=== PATIENT | female | born 1970 | race African-American/Black ===

== ENCOUNTER 2016-05-07 11:08 | Emergency (ER) | payer OTHER ==
[~2016-05-07 11:08] MED LIST: DICL75 PO; FERR325T PO; LEVO.1 PO; LURA40 PO; MOBI15TA PO; ONE A DAY WOMENS PO; ZOVI200C24 PO
[2016-05-07 11:25] VITALS: BP 147/91; PULSE 72; RESP 16; TEMP 96.5; O2SAT 98
[2016-05-07] MEDS ORDERED: TRAM50TA PO (11:31)
[2016-05-07] MEDS ORDERED: LISI10TA3 PO (11:31)
[2016-05-07] MEDS ORDERED: SERO300T PO (11:31)
[2016-05-07] MEDS ORDERED: WELLTAB39 PO (11:31)
[2016-05-07] MEDS ORDERED: FERR1TAB36 PO (11:31)
[2016-05-07] MEDS ORDERED: VIST50CA PO (11:31)
[2016-05-07] MEDS ORDERED: ZANT150T2 PO (11:31)
[2016-05-07] MEDS ORDERED: ACYC400T PO (11:31)
[2016-05-07] MEDS ORDERED: LEVO100T5 PO (11:31)
--- NOTE | 2016-05-07 11:43 | PD ---
HPI Chief Complaint: Psychiatric Symptoms Time Seen by Provider: 11:42 Travel History International Travel<30 days: No Contact w/Intl Traveler<30days: No Traveled to known affect area: No History of Present Illness HPI 46 year old female with PMH of HTN, depression, anxiety and PTSD presents to the ED under [place] Act for evaluation of 1 week history of suicidal and homicidal ideation. Patient states that she has been having thoughts of jumping in front of a car or drowning herself. She also states that she becomes very angry, especially with men, and has thoughts of hurting them or killing them. She denies hearing voices or hallucinations. No somatic complaints. The patient states that she recently moved from [place] and has been off Wellbutrin, Seroquel and Vistaril for 2 weeks. She endorses using cocaine yesterday. She states that she had a few beers this morning. PFSH Past Medical History Arthritis: Yes (HIPS, LEGS) Bipolar Disorder: Yes Anxiety: Yes Depression: Yes Cancer: No Cardiovascular Problems: Yes Chest Pain: Yes Congestive Heart Failure: No Diabetes: No Diminished Hearing: No Endocrine: Yes Gastrointestinal Disorders: Yes GERD: Yes Genitourinary: No Headaches: No Hypertension: Yes Immune Disorder: No Musculoskeletal: Yes Neurologic: Yes Psychiatric: Yes Reproductive: Yes (UTERINE FIBROIDS, GENITAL HERPES) Respiratory: No Integumentary: Yes (HERPES) Schizophrenia: Yes Seizures: No Thyroid Disease: Yes (HYPOTHYROID) ?: Not : 6 Para: 4 Miscarriage: 1 : 1 Tubal Ligation: Yes Past Surgical History Section: Yes (X4) Gynecologic Surgery: Yes (TUBAL LIGATION, C-SECT X 4) Other Surgery: Yes Social History Alcohol Use: Yes (OCCASIONALLY) Tobacco Use: Yes (Approx 5 cigs daily.) Substance Use: Yes (COCAINE YESTERDAY) Allergies-Medications (Allergen,Severity, Reaction): Coded Allergies: Trazodone (Unverified Allergy, Severe, Nausea/Vomiting, 05/07/16) Haldol (Verified Adverse Reaction, Intermediate, Twitching, 05/07/16) Reported Meds & Prescriptions Reported Meds & Active Scripts Active Reported Wellbutrin Xl 24 HR (Bupropion HCl) 300 Mg Tab 300 Mg PO DAILY Vistaril (Hydroxyzine Pamoate) 50 Mg Cap 50 Mg PO BID Seroquel (Quetiapine Fumarate) 300 Mg Tab 300 Mg PO HS Lisinopril 10 Mg Tab 10 Mg PO DAILY Tramadol (Tramadol HCl) 50 Mg Tab 50 Mg PO Q8H PRN Acyclovir 400 Mg Tab 400 Mg PO BID Iron (Ferrous Sulfate) 325 Mg Tab 325 Mg PO BIDPC Take after a meal. Zantac (Ranitidine HCl) 150 Mg Tab 150 Mg PO BID Levothyroxine (Levothyroxine Sodium) 100 Mcg Tab 100 Mcg PO DAILY Review of Systems Except as stated in HPI: all other systems reviewed are Neg Physical Exam Narrative GENERAL: Well-nourished, well-developed black female in no acute distress. PSYCHIATRIC: No delusional thought processes. No hallucinations. Anxious. SKIN: Warm and dry. HEAD: Normocephalic. EYES: No scleral icterus. No injection or drainage. NECK: Supple, trachea midline. No JVD or lymphadenopathy. CARDIOVASCULAR: Regular rate and rhythm without murmurs, gallops, or rubs. RESPIRATORY: Breath sounds clear and equal bilaterally. No accessory muscle use. GASTROINTESTINAL: Abdomen soft, non-tender, nondistended. MUSCULOSKELETAL: No cyanosis, or edema. The patient is ambulatory and moves extremities spontaneously. BACK: No obvious deformity. No CVA tenderness. Data Data Last Documented VS Vital Signs Date Time Temp Pulse Resp B/P Pulse Ox O2 Delivery O2 Flow Rate FiO2 05/07/16 11:25 96.5 72 16 147/91 98 Orders Complete Blood Count With Diff (05/07/16 11:44) Comprehensive Metabolic Panel (05/07/16 11:44) Urinalysis - C+S If Indicated (05/07/16 11:44) Drug Screen, Random Urine (05/07/16 11:44) Alcohol (Ethanol) (05/07/16 11:44) Psych Screen (05/07/16 11:44) Diet Regular Basic (05/07/16 Lunch) Labs Laboratory Tests Test 05/07/16 05/07/16 05/07/16 12:00 12:43 13:54 Sodium Level 135 MEQ/L Potassium Level 3.9 MEQ/L Chloride Level 104 MEQ/L Carbon Dioxide Level 22.8 MEQ/L Anion Gap 8 MEQ/L Blood Urea Nitrogen 22 MG/DL Creatinine 1.08 MG/DL Estimat Glomerular Filtration 66 ML/MIN Rate Random Glucose 103 MG/DL Calcium Level 8.6 MG/DL Total Bilirubin 0.2 MG/DL Aspartate Amino Transf 25 U/L (AST/SGOT) Alanine Aminotransferase 32 U/L (ALT/SGPT) Alkaline Phosphatase 73 U/L Total Protein 7.2 GM/DL Albumin 3.4 GM/DL Ethyl Alcohol Level LESS THAN 3 MG/DL White Blood Count 5.3 TH/MM3 Red Blood Count 3.99 MIL/MM3 Hemoglobin 12.1 GM/DL Hematocrit 36.1 % Mean Corpuscular Volume 90.4 FL Mean Corpuscular Hemoglobin 30.3 PG Mean Corpuscular Hemoglobin 33.5 % Concent Red Cell Distribution Width 14.9 % Platelet Count 204 TH/MM3 Mean Platelet Volume 9.8 FL Neutrophils (%) (Auto) 67.4 % Lymphocytes (%) (Auto) 20.8 % Monocytes (%) (Auto) 7.9 % Eosinophils (%) (Auto) 2.9 % Basophils (%) (Auto) 1.0 % Neutrophils # (Auto) 3.6 TH/MM3 Lymphocytes # (Auto) 1.1 TH/MM3 Monocytes # (Auto) 0.4 TH/MM3 Eosinophils # (Auto) 0.2 TH/MM3 Basophils # (Auto) 0.1 TH/MM3 CBC Comment DIFF FINAL Differential Comment Urine Color LIGHT-YELLOW Urine Turbidity CLEAR Urine pH 5.5 Urine Specific [place] 1.006 Urine Protein NEG mg/dL Urine Glucose (UA) NEG mg/dL Urine Ketones NEG mg/dL Urine Occult Blood NEG Urine Nitrite NEG Urine Bilirubin NEG Urine Urobilinogen LESS THAN 2.0 MG/DL Urine Leukocyte Esterase NEG Urine WBC LESS THAN 1 /hpf Urine Squamous Epithelial <1 /hpf Cells Microscopic Urinalysis Comment CULT NOT INDICATED Urine Opiates Screen NEG Urine Barbiturates Screen NEG Urine Amphetamines Screen NEG Urine Benzodiazepines Screen NEG Urine Cocaine Screen POS Urine Cannabinoids Screen NEG MDM Medical Decision Making Medical Screen Exam Complete: Yes Emergency Medical Condition: Yes Differential Diagnosis Adjustment disorder versus anxiety versus bipolar versus depression versus dementia versus electrolyte disorder versus malingering versus mood disorder versus ODD versus psychosis versus PTSD versus schizophrenia versus schizoaffective disorder versus substance-induced mood disorder versus other Narrative Course 46-year-old female with PMH of HTN, anxiety, depression, PTSD presents to the ED under Coley act for evaluation of suicidal and homicidal ideation. Patient states that she's been feeling suicidal for approximately one week. She states that she will settle into traffic or drown herself. Also endorses anger with homicidal ideation, especially when interacting with men. Patient is prescribed Seroquel, Wellbutrin and Vistaril. States she has not had these medications for 2 weeks, since she moved from [place]. No somatic complaints. Vitals and physical exam are reassuring. CBC unremarkable. BMP with mild elevations of BUN and creatinine, this patient's baseline according to chart review. No culture indicated of the UA. Alcohol less than 3. Tox screen positive for cocaine. The patient is medically cleared for psychiatric evaluation. Please see psychiatric notes for disposition. Diagnosis Primary Impression: Medical clearance for psychiatric admission Additional Impressions: Homicidal ideation Suicidal ideation Ratna Jasso May 07, 2016 11:43
[2016-05-07 12:44] LABS: ANION GAP 8 MEQ/L (5-15); AST (GOT) 25 U/L (15-37); BICARBONATE 22.8 MEQ/L (21.0-32.0); BLOOD UREA NITROGEN 22 MG/DL (7-18); CHLORIDE 104 MEQ/L (98-107); GLOMERULAR FILTRATION RATE 66 ML/MIN (>89); POTASSIUM 3.9 MEQ/L (3.5-5.1); SODIUM (NA) 135 MEQ/L (136-145)
[2016-05-07 12:50] LABS: ALKALINE PHOSPHATASE 73 U/L (45-117); ALT (GPT) 32 U/L (10-53); TOTAL BILIRUBIN ADULT 0.2 MG/DL (0.2-1.0)
[2016-05-07 12:58] LABS: AUTOMATED NEUTROPHIL # 3.6 TH/MM3 (1.8-7.7); BASOPHIL # 0.1 TH/MM3 (0-0.2); EOSINOPHIL # 0.2 TH/MM3 (0-0.4); EOSINOPHIL % 2.9 % (0.0-4.0); HEMATOCRIT 36.1 % (35.0-46.0); HEMO FLAGS DIFF FINAL; LYMPH % 20.8 % (9.0-44.0); LYMPHOCYTE # 1.1 TH/MM3 (1.0-4.8); MEAN CELL VOLUME 90.4 FL (80.0-100.0); MEAN CORPUSCULAR HEMOGLOBIN 30.3 PG (27.0-34.0); MEAN CORPUSCULAR HGB CONC 33.5 % (32.0-36.0); MONO % 7.9 % (0.0-8.0); NEUT % 67.4 % (16.0-70.0); PLATELET COUNT 204 TH/MM3 (150-450); RED BLOOD COUNT 3.99 MIL/MM3 (4.00-5.30); RED CELL DISTRIBUTION WIDTH 14.9 % (11.6-17.2); WHITE BLOOD COUNT 5.3 TH/MM3 (4.0-11.0)
[2016-05-07 14:09] LABS: BLOOD, URINE NEG (NEG); GLUCOSE,URINE NEG (NEG); KETONE, URINE NEG (NEG); NITRITE,URINE NEG (NEG); PH, URINE 5.5 (5.0-8.5); SQUAMOUS EPITHELIAL CELL URINE <1 /hpf (0-5); URINE COLOR LIGHT-YELLOW (YELLW/STRAW)
[2016-05-07 14:15] LABS: COMMENT (UR) CULT NOT INDICATED; CULTURE IF INDICATED CULT NOT INDICATED
[2016-05-07 14:16] LABS: AMPHETAMINE, URINE NEG (NEG); BARBITURATES, URINE NEG (NEG); COCAINE, URINE POS (NEG)
[2016-05-07 15:26] VITALS: BP 175/84; PULSE 81; RESP 18; TEMP 97.1; O2SAT 94
[2016-05-07 18:00] VITALS: BP 157/76; PULSE 79; RESP 18; O2SAT 95
[2016-05-07 22:22] VITALS: BP 143/66; PULSE 67; RESP 19; O2SAT 97
[2016-05-08 02:58] VITALS: BP 183/90; PULSE 78; RESP 18; TEMP 97.5; O2SAT 99
== END 2016-05-08 04:51 ==
LOC: NEDAMB 11:08 → NEPJ 05-08 04:51
DX: F32.9 Major depressive disorder, single episode, unspecified (principal); R45.850 Homicidal ideations; R45.851 Suicidal ideations; F41.9 Anxiety disorder, unspecified; I10 Essential (primary) hypertension; F31.9 Bipolar disorder, unspecified; K21.9 Gastro-esophageal reflux disease without esophagitis; E03.9 Hypothyroidism, unspecified; F14.90 Cocaine use, unspecified, uncomplicated; F17.210 Nicotine dependence, cigarettes, uncomplicated
CPT/HCPCS: 80053; 80307; 80320; 81001; 85025; 99285

== ENCOUNTER 2016-05-21 13:09 | Emergency (ER) | payer OTHER ==
[~2016-05-21] VITALS: Ht 165.1 cm; Wt 110.0 kg
[~2016-05-21 13:09] MED LIST changes: +ACYC400T PO; -DICL75 PO; +FERR1TAB36 PO; -FERR325T PO; -LEVO.1 PO; +LEVO100T5 PO; +LISI10TA3 PO; -LURA40 PO; -MOBI15TA PO; -ONE A DAY WOMENS PO; +SERO300T PO; +TRAM50TA PO; +VIST50CA PO; +WELLTAB39 PO; +ZANT150T2 PO; -ZOVI200C24 PO
[2016-05-21 13:11] VITALS: BP 173/79; PULSE 80; RESP 28; TEMP 98.2; O2SAT 96
--- NOTE | 2016-05-21 13:52 | PD ---
HPI Chief Complaint: Cold / Flu Symptoms Time Seen by Provider: 13:52 Travel History International Travel<30 days: No Contact w/Intl Traveler<30days: No Traveled to known affect area: No History of Present Illness HPI 46-year-old female presents to the emergency Department with complaint of a cough for the last 4-5 days. Reports wheezing. Denies history of asthma or COPD. Reports occasional tobacco use. Reports feeling feverish with chills, but has not taken her temperature and cannot reports a MAXIMUM TEMPERATURE. Reports pain to the right lower rib cage when coughing. Denies shortness of breath or chest pain. Denies hemoptysis. Cough is dry and nonproductive. Has not tried any treatments or medications to alleviate her symptoms. Denies nausea, vomiting. Denies sore throat, ear pain, nasal congestion. Allergies to Haldol and trazodone. History of hypertension. No other modifying factors or associated signs and symptoms. PFSH Past Medical History Arthritis: Yes (HIPS, LEGS) Bipolar Disorder: Yes Anxiety: Yes Depression: Yes Cancer: No Cardiovascular Problems: Yes (HTN) Chest Pain: Yes Congestive Heart Failure: No Diabetes: No Diminished Hearing: No Endocrine: Yes Gastrointestinal Disorders: Yes GERD: Yes Genitourinary: No Headaches: No Hypertension: Yes Immune Disorder: No Musculoskeletal: Yes Neurologic: Yes Psychiatric: Yes Reproductive: Yes (UTERINE FIBROIDS, GENITAL HERPES) Respiratory: No Integumentary: Yes (HERPES) Schizophrenia: Yes Seizures: No Thyroid Disease: Yes (HYPOTHYROID) ?: Not : 6 Para: 4 Miscarriage: 1 : 1 Tubal Ligation: Yes Past Surgical History Section: Yes (X4) Gynecologic Surgery: Yes (TUBAL LIGATION, C-SECT X 4) Other Surgery: Yes Social History Alcohol Use: Yes (OCCASIONALLY) Tobacco Use: Yes Substance Use: Yes (COCAINE ) Allergies-Medications (Allergen,Severity, Reaction): Coded Allergies: Trazodone (Unverified Allergy, Severe, Nausea/Vomiting, 05/21/16) Haldol (Verified Adverse Reaction, Intermediate, Twitching, 05/21/16) Reported Meds & Prescriptions Reported Meds & Active Scripts Active Deltasone (Prednisone) 20 Mg Tab 40 Mg PO DAILY 4 Days start 05/22/2016 Proair Hfa 8.5 GM Inh (Albuterol Sulfate) 90 Mcg/Act Aer 2 Puff INH Q4-6H PRN 108 mcg/actuation Reported Wellbutrin Xl 24 HR (Bupropion HCl) 300 Mg Tab 300 Mg PO DAILY Vistaril (Hydroxyzine Pamoate) 50 Mg Cap 50 Mg PO BID Seroquel (Quetiapine Fumarate) 300 Mg Tab 300 Mg PO HS Lisinopril 10 Mg Tab 20 Mg PO DAILY Tramadol (Tramadol HCl) 50 Mg Tab 50 Mg PO Q8H PRN Acyclovir 400 Mg Tab 400 Mg PO BID Iron (Ferrous Sulfate) 325 Mg Tab 325 Mg PO BIDPC Take after a meal. Zantac (Ranitidine HCl) 150 Mg Tab 150 Mg PO BID Levothyroxine (Levothyroxine Sodium) 100 Mcg Tab 100 Mcg PO DAILY Review of Systems Except as stated in HPI: all other systems reviewed are Neg Physical Exam Narrative GENERAL: Well-nourished, well-developed female patient, in no acute distress; afebrile, nontoxic-appearing SKIN: Warm and dry. HEAD: Atraumatic. Normocephalic. EYES: Pupils equal and round. No scleral icterus. No injection or drainage. ENT: Mucosa pink and moist. EARS: Bilateral pinnae and external canals appear within normal limits. NECK: Trachea midline. No lymphadenopathy. CARDIOVASCULAR: Regular rate and rhythm. No murmur appreciated. RESPIRATORY: No accessory muscle use. Lungs with mild Wheezing throughout to auscultation. Breath sounds equal bilaterally. No retractions or tachypnea. No Audible wheezing noted. GASTROINTESTINAL: Abdomen soft, non-tender, nondistended. Hepatic and splenic margins not palpable. Bowel sounds are active 4 quadrants. MUSCULOSKELETAL: No obvious deformities. No clubbing. No cyanosis. No edema. NEUROLOGICAL: Awake and alert. Oriented 3. No obvious cranial nerve deficits. Motor grossly within normal limits. Normal speech. Moves all extremities. 5/5 strength to all extremities. PSYCHIATRIC: Appropriate mood and affect; insight and judgment normal. Data Data Last Documented VS Vital Signs Date Time Temp Pulse Resp B/P Pulse Ox O2 Delivery O2 Flow Rate FiO2 05/21/16 13:11 98.2 80 28 173/79 96 Room Air Orders Chest, Single Ap (05/21/16 13:52) Prednisone (Deltasone) (05/21/16 14:00) Albuterol Neb (Albuterol Neb) (05/21/16 14:00) [facility] Medical Decision Making Medical Screen Exam Complete: Yes Emergency Medical Condition: Yes Medical Record Reviewed: Yes Differential Diagnosis Bronchitis, pneumonia, cough Narrative Course 46-year-old female with cough 4-5 days. Physical exam and history of present illness consistent with acute bronchitis. Lung sounds are with mild wheezing in the bilateral bases. No audible wheezing. The patient is in no acute distress and her oxygen saturation is 96% on room air. She is without retractions or tachypnea. Patient walking up and down the hallway prior to physical exam and appears to be in no acute distress. Denies chest pain or shortness of breath. Afebrile in the ER. She reports feeling feverish and chills at home. Increased pain to the right lower rib area with coughing. Denies history of asthma or COPD. Reports tobacco use occasionally. Cough is dry. DuoNeb and prednisone administered in ER. Chest x-ray ordered. 1413: Chest x-ray with no acute findings. 1449: Patient reports improvement on reevaluation. Lung sounds are clear and equal bilaterally. Pro-air inhaler and Deltasone prescribed for home. Patient is medically cleared and stable for discharge. Discussed reasons to return to the emergency department. Instructed patient to follow up with primary care provider. Patient agrees with treatment plan. The patients vital signs are stable and the patient is stable for outpatient follow-up and treatment. Patient discharged home, stable and in no acute distress. Diagnosis Primary Impression: Acute bronchitis Qualified Code: J20.9 - Acute bronchitis, unspecified organism Referrals: Primary Care Physician Patient Instructions: Acute Bronchitis (ED), General Instructions Additional Instructions: Use albuterol inhaler as needed and as directed for shortness of breath and wheezing Take oral steroids as prescribed and complete full course avoid triggers such as second hand smoke, dust, known allergens Follow-up with primary care provider within 1 to 2 days Return to emergency department immediately with worsening of symptoms Med/Other Pt SpecificInfo: Prescription(s) given Scripts Prednisone (Deltasone)20 Mg Tab40 Mg PO DAILY 4 Days Ref 0 start 05/22/2016 Prov:Cristy Grant 05/21/16 Albuterol 8.5 GM Inh (Proair Hfa 8.5 GM Inh)90 Mcg/Act Aer2 Puff INH Q4-6H PRN ( SOB/WHEEZING) #1 INHALER Ref 0 108 mcg/actuation Prov:Cristy Grant 05/21/16 Disposition: 01 DISCHARGE HOME Condition: Stable Cristy Grant May 21, 2016 13:52
[2016-05-21] MEDS ORDERED: RESP: ALBUTEROL 2.5 MG/3 ML NEB (SCH) INH ONE (14:00)
[2016-05-21] MEDS ORDERED: predniSONE 20 MG TAB PO ONE (14:00)
--- NOTE | 2016-05-21 14:09 | RADRPT ---
EXAM DATE/TIME: 05/21/2016 13:53 [facility] COMPARISON: No previous studies available for comparison. INDICATIONS : Cough, congestion, chest pain. MEDICAL HISTORY : bronchitis, pneumonia SURGICAL HISTORY : None. ENCOUNTER: Initial ACUITY: 4 - 6 days PAIN SCORE: 7/10 LOCATION: Bilateral chest FINDINGS: A single view of the chest demonstrates the lungs to be symmetrically aerated without evidence of mas s, infiltrate or effusion. The cardiomediastinal contours are unremarkable. Osseous structures are intact. CONCLUSION: No acute disease. Wallace Soto MD FACR on May 21, 2016 at 14:07 Board Certified Radiologist. This report was verified electronically.
[2016-05-21] MEDS ORDERED: PRED-503 PO (14:15)
[2016-05-21] MEDS ORDERED: ALBUAER3 INH (14:15)
== END 2016-05-21 14:57 | disposition home or self-care (01) ==
LOC: NEPB 13:09
DX: J20.9 Acute bronchitis, unspecified (principal); I10 Essential (primary) hypertension; K21.9 Gastro-esophageal reflux disease without esophagitis; Z72.0 Tobacco use
CPT/HCPCS: 71010; 94664; 99283; J7512; J7613

== ENCOUNTER 2016-05-21 15:16 | Emergency (ER) | payer OTHER ==
[~2016-05-21] VITALS: Ht 165.1 cm; Wt 100.0 kg
[~2016-05-21 15:16] MED LIST changes: +ALBUAER3 INH; +PRED-503 PO
[2016-05-21 15:18] VITALS: BP 182/82; PULSE 80; RESP 20; TEMP 97.8; O2SAT 97
--- NOTE | 2016-05-21 15:53 | PD ---
HPI Chief Complaint: Medication Refill Request Time Seen by Provider: 15:43 Travel History International Travel<30 days: No Contact w/Intl Traveler<30days: No Traveled to known affect area: No History of Present Illness HPI 46-year-old female presents to the emergency department requesting medication refill on her Seroquel. She said she has been trying to go through [facility] for refill and they're closed today. Denies homicidal or suicidal ideations. Says she sees things but cannot verify what. Denies auditory hallucinations. The patient was discharged from the emergency department approximately 30 minutes ago and I saw her as a patient and treated her for acute bronchitis. During her last visit, 30 minutes ago, she was requesting to see case management to fill her prescriptions because she cannot afford them. She was also asking for transportation from the hospital from case management and it was unable to be provided. She has no emergent medical complaints at this time. No other modifying Factors or associated signs and symptoms. History Past Medical Histgory Hx Cancer: No Social History Alcohol Use: Yes (OCCASIONALLY) Tobacco Use: Yes Allergies-Medications (Allergen,Severity, Reaction): Coded Allergies: Trazodone (Unverified Allergy, Severe, Nausea/Vomiting, 05/21/16) Haldol (Verified Adverse Reaction, Intermediate, Twitching, 05/21/16) Reported Meds & Prescriptions Reported Meds & Active Scripts Active Deltasone (Prednisone) 20 Mg Tab 40 Mg PO DAILY 4 Days start 05/22/2016 Proair Hfa 8.5 GM Inh (Albuterol Sulfate) 90 Mcg/Act Aer 2 Puff INH Q4-6H PRN 108 mcg/actuation Reported Wellbutrin Xl 24 HR (Bupropion HCl) 300 Mg Tab 300 Mg PO DAILY Vistaril (Hydroxyzine Pamoate) 50 Mg Cap 50 Mg PO BID Seroquel (Quetiapine Fumarate) 300 Mg Tab 300 Mg PO HS Lisinopril 10 Mg Tab 20 Mg PO DAILY Tramadol (Tramadol HCl) 50 Mg Tab 50 Mg PO Q8H PRN Acyclovir 400 Mg Tab 400 Mg PO BID Iron (Ferrous Sulfate) 325 Mg Tab 325 Mg PO BIDPC Take after a meal. Zantac (Ranitidine HCl) 150 Mg Tab 150 Mg PO BID Levothyroxine (Levothyroxine Sodium) 100 Mcg Tab 100 Mcg PO DAILY Review of Systems Except as stated in HPI: all other systems reviewed are Neg Physical Exam Narrative GENERAL: Well-nourished, well-developed female patient, in no acute distress SKIN: Warm and dry. HEAD: Atraumatic. Normocephalic. EYES: Pupils equal and round. ENT: Mucosa pink and moist. NECK: Supple. Trachea midline. CARDIOVASCULAR: Regular rate. RESPIRATORY: No accessory muscle use. GASTROINTESTINAL: Rounded. MUSCULOSKELETAL: No obvious deformities. No clubbing. No cyanosis. No edema. NEUROLOGICAL: Awake and alert. Oriented 3. No obvious cranial nerve deficits. Motor grossly within normal limits. Normal speech. Moves all extremities. 5/5 strength to all extremities. PSYCHIATRIC: No delusional thought processes. No hallucinations. Data Data Last Documented VS Vital Signs Date Time Temp Pulse Resp B/P Pulse Ox O2 Delivery O2 Flow Rate FiO2 05/21/16 15:18 97.8 80 20 182/82 97 Room Air MDM Medical Screen Exam Complete: Yes Emergency Medical Condition: No Differential Diagnosis Malingering, medication refill, medical clearance Narrative Course 46-year-old female, that I just saw approximately 30 minutes ago and treated for acute bronchitis, returns to the emergency department requesting a refill on her Seroquel. While she was here during her last visit today she was requesting to speak with case management so they would fill her prescriptions that I provided for her and she was also asking for transportation from the hospital. She denies suicidal or homicidal ideations. Outpatient community resources were provided for the patient to follow up outpatient. The patient has no medical emergent complaints at this time. Patient is medically cleared and stable for discharge. Discussed reasons to return to the emergency department. Instructed patient to follow up with primary care provider. Patient agrees with treatment plan. The patients vital signs are stable and the patient is stable for outpatient follow-up and treatment. Patient discharged home, stable and in no acute distress. Primary Impression: Encounter for medical screening examination Referrals: Primary Care Physician Patient Instructions: General Instructions, Normal Exam (ED) Additional Instructions: Follow-up for medication refills at outpatient [facility] Follow-up with primary care provider Follow-up with psychiatry Med/Other Pt SpecificInfo: No Change to Meds, No Meds Exist/No RX given Disposition: DISCHARGE HOME Condition: Stable Cristy Grant May 21, 2016 15:53
== END 2016-05-21 15:54 | disposition home or self-care (01) ==
LOC: NEPB 15:16
DX: Z76.0 Encounter for issue of repeat prescription (principal); Z72.0 Tobacco use

== ENCOUNTER 2016-07-30 20:35 | Inpatient (IN) | payer OTHER ==
[~2016-07-30] VITALS: Ht 165.1 cm; Wt 67.1 kg
[2016-07-30 20:50] VITALS: BP 148/72; PULSE 87; RESP 18; TEMP 97.6; O2SAT 97
[2016-07-30] MEDS ORDERED: ALUMINUM/MAGNESIUM/SIMETH 30 ML CUP PO PRN (21:30)
[2016-07-30] MEDS ORDERED: diphenhydrAMINE HCL 50 MG/ML VIAL - HS PRN IM (21:30)
[2016-07-30] MEDS ORDERED: MAGNESIUM HYDROXIDE SUSP 30 ML CUP PO PRN (21:30)
[2016-07-30] MEDS ORDERED: diphenhydrAMINE HCL 50 MG CAP - HS PRN PO (21:30)
[2016-07-30] MEDS ORDERED: ACETAMINOPHEN 325 MG TAB PO PRN (21:30)
[2016-07-31 06:36] VITALS: BP 146/72; PULSE 66; RESP 18; TEMP 98.3; O2SAT 100
[2016-07-31] MEDS ORDERED: MAGNESIUM HYDROXIDE SUSP 30 ML CUP PO PRN (11:45)
[2016-07-31] MEDS ORDERED: ALUMINUM/MAGNESIUM/SIMETH 30 ML CUP PO PRN (11:45)
[2016-07-31] MEDS ORDERED: LORazepam 1 MG TAB PO PRN (12:15)
[2016-07-31] MEDS ORDERED: LORazepam 2 MG TAB PO PRN (12:15)
[2016-07-31] MEDS ORDERED: FLUMAZENIL 0.5 MG/5 ML VIAL IV PUSH PRN (12:15)
[2016-07-31] MEDS ORDERED: LORazepam 2 MG/ML VIAL IV PUSH PRN ×4 (12:15)
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
[2016-07-31] MEDS ORDERED: buPROPion HCL 150 MG EXTENDED RELEASE TAB PO SCH (13:00)
[2016-07-31] MEDS ORDERED: ALBUTEROL SULFATE 90 MCG/ACT HFA 8 GM INHALER INH PRN (13:00)
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
[2016-07-31] MEDS: LISINOPRIL 20 MG TAB PO SCH (16:00)
[2016-07-31] MEDS: FERROUS SULFATE 325 MG (65 MG ELEMENTAL IRON) TAB PO SCH ×2 (16:01→20:56)
[2016-07-31] MEDS: REMOVE OLD PATCH T-DERMAL SCH (16:30)
[2016-07-31] MEDS: NICOTINE 7 MG/24 HR PATCH T-DERMAL SCH (16:30)
[2016-07-31] MEDS: traMADol HCL 50 MG TAB PO PRN (17:22)
[2016-07-31 17:56] VITALS: BP 164/78; PULSE 78; RESP 18; TEMP 98.4; O2SAT 99
[2016-07-31] MEDS: FAMOTIDINE 20 MG TAB PO SCH (20:56)
[2016-07-31] MEDS: buPROPion HCL 150 MG SUSTAINED RELEASE TAB PO SCH (20:57)
[2016-07-31] MEDS: QUEtiapine FUMARATE 300 MG TAB PO SCH (20:57)
[2016-07-31] MEDS: ACYCLOVIR 200 MG CAP PO SCH (21:53)
[2016-08-01 05:57] VITALS: BP 115/58; PULSE 67; RESP 18; TEMP 96.9; O2SAT 97
[2016-08-01] MEDS: LEVOTHYROXINE SODIUM 100 MCG TAB PO SCH (06:43)
[2016-08-01 07:43] LABS: AUTOMATED NEUTROPHIL # 2.3 TH/MM3 (1.8-7.7); BASOPHIL % 1.2 % (0.0-2.0); EOSINOPHIL # 0.2 TH/MM3 (0-0.4); EOSINOPHIL % 4.9 % (0.0-4.0); HEMATOCRIT 27.8 % (35.0-46.0); HEMO FLAGS DIFF FINAL; LYMPH % 23.6 % (9.0-44.0); LYMPHOCYTE # 0.9 TH/MM3 (1.0-4.8); MEAN CELL VOLUME 79.3 FL (80.0-100.0); MEAN CORPUSCULAR HEMOGLOBIN 25.2 PG (27.0-34.0); MEAN CORPUSCULAR HGB CONC 31.8 % (32.0-36.0); NEUT % 59.3 % (16.0-70.0); PLATELET COUNT 260 TH/MM3 (150-450); RED CELL DISTRIBUTION WIDTH 16.4 % (11.6-17.2); WHITE BLOOD COUNT 3.8 TH/MM3 (4.0-11.0)
[2016-08-01 08:17] LABS: ALKALINE PHOSPHATASE 72 U/L (45-117); FREE T4 0.97 NG/DL (0.76-1.46); TOTAL BILIRUBIN ADULT LESS THAN 0.1 MG/DL (0.2-1.0)
[2016-08-01 08:23] LABS: ALT (GPT) 23 U/L (10-53); ANION GAP 8 MEQ/L (5-15); AST (GOT) 24 U/L (15-37); BICARBONATE 25.3 MEQ/L (21.0-32.0); BLOOD UREA NITROGEN 16 MG/DL (7-18); CHLORIDE 106 MEQ/L (98-107); GLOMERULAR FILTRATION RATE 67 ML/MIN (>89); SODIUM (NA) 139 MEQ/L (136-145)
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
[2016-08-01] MEDS: LISINOPRIL 20 MG TAB PO SCH (09:00)
[2016-08-01] MEDS: FOLIC ACID 1 MG TAB PO SCH (09:00)
[2016-08-01] MEDS: REMOVE OLD PATCH T-DERMAL SCH (09:00)
[2016-08-01] MEDS: ACYCLOVIR 200 MG CAP PO SCH ×2 (09:00→20:42)
[2016-08-01] MEDS: FERROUS SULFATE 325 MG (65 MG ELEMENTAL IRON) TAB PO SCH ×2 (09:00→17:54)
[2016-08-01] MEDS: NICOTINE 7 MG/24 HR PATCH T-DERMAL SCH (09:00)
[2016-08-01] MEDS: buPROPion HCL 150 MG SUSTAINED RELEASE TAB PO SCH ×2 (09:00→20:43)
[2016-08-01] MEDS: THIAMINE HCL 100 MG TAB PO SCH (09:00)
[2016-08-01] MEDS: FAMOTIDINE 20 MG TAB PO SCH ×2 (10:01→20:43)
[2016-08-01] MEDS: traMADol HCL 50 MG TAB PO PRN ×2 (10:04→17:57)
--- NOTE | 2016-08-01 14:17 | HHI.PYPN ---
Subjective Remarks Patient seen in her room with nurse Susan, chart reviewed. Patient in bed laying on her belly with covers up to her chin. Responding to me somewhat reluctantly and irritably. She states she is no better than yesterday that she still has a suicidal ideation, they still his auditory hallucinations speaking of . She is reluctant to discuss discharge plans. She states she is homeless. Has been homeless in the past. She is also showing very little initiative into discussing discharge possibilities with us. I wonder if there is a component of manipulation with this lady or perhaps her coming off of her cocaine. Will add Respinol 1 mg twice a day to the regimen Review of Systems Except as stated in HPI: all other systems reviewed are Neg Objective Alert: Yes [place]: Person, Place Mood: Depressed, Other (restricted) Affect: Other (decrease range and intensity) Memory Intact: Comment (poor) Hallucinations: Auditory (of command threatening nature) Delusions: Yes Delusion Type: Paranoid (vaguely) Suicidal: Intent, Ideation Homicidal: Ideation (denies) Insight/Judgement Very poor Labs Test 08/01/16 06:59 White Blood Count 3.8 TH/MM3 Red Blood Count 3.50 MIL/MM3 Hemoglobin 8.8 GM/DL Hematocrit 27.8 % Mean Corpuscular Volume 79.3 FL Mean Corpuscular Hemoglobin 25.2 PG Mean Corpuscular Hemoglobin 31.8 % Concent Red Cell Distribution Width 16.4 % Platelet Count 260 TH/MM3 Mean Platelet Volume 9.4 FL Neutrophils (%) (Auto) 59.3 % Lymphocytes (%) (Auto) 23.6 % Monocytes (%) (Auto) 11.0 % Eosinophils (%) (Auto) 4.9 % Basophils (%) (Auto) 1.2 % Neutrophils # (Auto) 2.3 TH/MM3 Lymphocytes # (Auto) 0.9 TH/MM3 Monocytes # (Auto) 0.4 TH/MM3 Eosinophils # (Auto) 0.2 TH/MM3 Basophils # (Auto) 0.0 TH/MM3 CBC Comment DIFF FINAL Differential Comment Sodium Level 139 MEQ/L Potassium Level 4.0 MEQ/L Chloride Level 106 MEQ/L Carbon Dioxide Level 25.3 MEQ/L Anion Gap 8 MEQ/L Blood Urea Nitrogen 16 MG/DL Creatinine 1.06 MG/DL Estimat Glomerular Filtration 67 ML/MIN Rate Random Glucose 79 MG/DL Calcium Level 8.5 MG/DL Total Bilirubin LESS THAN 0.1 MG/DL Aspartate Amino Transf 24 U/L (AST/SGOT) Alanine Aminotransferase 23 U/L (ALT/SGPT) Alkaline Phosphatase 72 U/L Total Protein 6.8 GM/DL Albumin 3.0 GM/DL Free Thyroxine 0.97 NG/DL Thyroid Stimulating Hormone 1.590 uIU/ML 3rd Gen Vitals/IOs Vital Signs Date Time Temp Pulse Resp B/P Pulse Ox O2 Delivery O2 Flow Rate FiO2 08/01/16 05:57 96.9 67 18 115/58 97 Assessment & Plan Problem List: (1) Schizoaffective disorder, bipolar type ICD Code: F25.0 (2) Cocaine abuse ICD Code: F14.10 (3) Alcohol abuse ICD Code: F10.10 Assessment & Plan Estimated LOS: days patient remains isolative with a very decreased range intense ever affect. Showing no initiative or desire to participate in groups or to participate with the treatment team and discussing placement options. She appears to verify continued auditory hallucinations and suicidal ideation and intent. We'll add Respinol 1 mg twice a day to regimen Justification for Cont. Inpt. At this time patient will decompensate if placed in the lower level of care Discharge Planning To be determined Request HC Surrog/Guard Advoc?: No Krzysztof Tello MD Aug 01, 2016 14:17
[2016-08-01] MEDS: risperiDONE ODT 1 MG TAB PO SCH ×2 (16:00→20:43)
[2016-08-01] MEDS: ACETAMINOPHEN 325 MG TAB PO PRN (16:21)
[2016-08-01 16:57] VITALS: BP 161/81; PULSE 67; RESP 18; TEMP 96.9; O2SAT 99
[2016-08-01] MEDS: QUEtiapine FUMARATE 300 MG TAB PO SCH (20:43)
[2016-08-02 05:30] VITALS: BP 104/66; PULSE 70; RESP 18; TEMP 97.9; O2SAT 98
[2016-08-02] MEDS: LEVOTHYROXINE SODIUM 100 MCG TAB PO SCH (06:24)
[2016-08-02] MEDS: FOLIC ACID 1 MG TAB PO SCH (08:37)
[2016-08-02] MEDS: THIAMINE HCL 100 MG TAB PO SCH (08:37)
[2016-08-02] MEDS: buPROPion HCL 150 MG SUSTAINED RELEASE TAB PO SCH ×2 (08:37→20:53)
[2016-08-02] MEDS: FAMOTIDINE 20 MG TAB PO SCH ×2 (08:37→20:53)
[2016-08-02] MEDS: risperiDONE ODT 1 MG TAB PO SCH ×2 (08:37→20:53)
[2016-08-02] MEDS: ACYCLOVIR 200 MG CAP PO SCH ×2 (08:37→20:53)
[2016-08-02] MEDS: NICOTINE 7 MG/24 HR PATCH T-DERMAL SCH (08:37)
[2016-08-02] MEDS: FERROUS SULFATE 325 MG (65 MG ELEMENTAL IRON) TAB PO SCH ×2 (08:37→17:03)
[2016-08-02] MEDS: LISINOPRIL 20 MG TAB PO SCH (08:37)
[2016-08-02] MEDS: REMOVE OLD PATCH T-DERMAL SCH (09:00)
--- NOTE | 2016-08-02 13:00 | HHI.PYPN ---
Subjective Remarks Patient seen in her room with nurse Jose Juan, patient sitting on the edge of the bed. Patient showing some increased affect increased eye contact, there is some decrease in her paranoia. She does acknowledge continued auditory hallucinations though not quite as threatening, continues suicidality though that also is slightly softened. Patient became somewhat tearful also and said the pain to respond to some positive reinforcements by me. Patient compliant medications. For now continue treatment no change Review of Systems Except as stated in HPI: all other systems reviewed are Neg Objective Alert: Yes [place]: Person, Place Mood: Depressed, Other (restricted) Affect: Other (decrease range and intensity) Memory Intact: Comment (poor) Hallucinations: Auditory (of command threatening nature slightly softer today) Delusions: Yes Delusion Type: Paranoid (vaguely) Suicidal: Intent, Ideation Homicidal: Ideation (denies) Insight/Judgement Poor Vitals/IOs Vital Signs Date Time Temp Pulse Resp B/P Pulse Ox O2 Delivery O2 Flow Rate FiO2 08/02/16 05:30 97.9 70 18 104/66 98 Intake and Output 08/01/16 08/01/16 08/02/16 08:00 16:00 00:00 Intake Total 360 ml Balance 360 ml Assessment & Plan Problem List: (1) Schizoaffective disorder, bipolar type ICD Code: F25.0 (2) Cocaine abuse ICD Code: F14.10 (3) Alcohol abuse ICD Code: F10.10 Assessment & Plan Estimated LOS: days patient continues psychotic and suicidal though somewhat softer today. Compliant medications. For now continue treatment Justification for Cont. Inpt. At this time patient will decompensate if placed in a lower level of care Discharge Planning To be determined Request HC Surrog/Guard Advoc?: Krzysztof Gore MD Aug 02, 2016 13:00
--- NOTE | 2016-08-02 14:43 | HHI.PR ---
Subjective Remarks Follow-up visit iron deficiency anemia, hypothyroidism, genital herpes, hypertension, alcohol abuse, substance abuse. Patient seen today. Reports she' s been doing well. Denies pain and discomfort. Denies SOB/ dyspnea. Denies chest pain, palpitations, headaches, dizziness. Denies fevers, chills, n/v/d. Denies any tremors, shakes. As per nursing, patient has been doing well, no signs of withdrawal symptoms noted. Objective Vitals Vital Signs Date Time Temp Pulse Resp B/P Pulse Ox O2 Delivery O2 Flow Rate FiO2 08/02/16 05:30 97.9 70 18 104/66 98 08/01/16 16:57 96.9 67 18 161/81 99 I/O 08/01/16 08/01/16 08/01/16 08/02/16 08/02/16 08/02/16 07:00 15:00 23:00 07:00 15:00 23:00 Intake Total 360 ml Balance 360 ml Intake Oral 360 ml Result Diagram: 08/01/16 0659 08/01/16 0659 Objective Remarks GENERAL: This is an obese, well-developed patient, in no apparent distress. SKIN: No rashes, ecchymoses or lesions. Cool and dry. HEAD:Normocephalic. EYES: Pupils equal round and reactive. Extraocular motions intact. No scleral icterus. No injection or drainage. ENT: Nose without bleeding. Throat without erythema. Uvula midline. Airway patent. NECK: Trachea midline. No JVD or lymphadenopathy. Supple. CARDIOVASCULAR: Regular rate and rhythm without murmurs, gallops, or rubs. RESPIRATORY: Clear to auscultation. Breath sounds equal bilaterally. No wheezes , rales, or rhonchi. GASTROINTESTINAL: Abdomen soft, non-tender, nondistended. Bowel sounds active 4 MUSCULOSKELETAL: Extremities without clubbing, cyanosis, or edema. Mild tenderness to paraspinal area on palpation. NEUROLOGICAL: Awake and alert. No focal neuro deficit. Motor and sensory grossly within normal limits. Normal speech. A/P Problem List: (1) Cocaine abuse ICD Code: F14.10 Status: Acute (2) Schizoaffective disorder, bipolar type ICD Code: F25.0 Status: Acute (3) Alcohol abuse ICD Code: F10.10 Status: Acute Assessment and Plan Patient is a 46-year-old female with primary medical history of iron deficiency anemia, hypothyroidism, genital herpes, hypertension who came in as a transfer under [facility]y act from [facility] for suicidal ideation. Patient reports she is drinking 2-3 times a week 1 pint of vodka, she also uses cocaine often but not daily. Reports she snorts cocaine. States that she had prior history of seizure from alcohol withdrawal, and she also gets the "shakes." Patient also states that he takes iron pills twice a day because of iron deficiency anemia but she ran out and wasn't able to take it for about a week. Admitted to inpatient psychiatry unit for further evaluation. Consulted for medical management Suicidal ideation, schizoaffective disorder, bipolar type - managed by psychiatry team Cocaine use Alcohol abuse - Review of records showed patient has been reporting cocaine use since 2013 - Counseled to Abstain cocaine and alcohol use - [facility] protocol - Monitor for withdrawals - Seizure precaution - Folic acid, thiamine Tobacco use - nicotine patch Iron deficiency anemia - Ferrous sulfate supplement twice a day - Repeat CBC Saturday or as an outpatient if discharge within the week. - Follow up with PCP. 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 HTN - Lisinopril 20 mg daily - Monitor BP trend Hypothyroidism - Check TSH - Continue levothyroxine 100 g daily UTI - review of records, showed UA negative at [facility]. She denies any dysuria, frequency, hematuria, urgency. DVT prop ambulatory Discussed with patient, nursing Stable from Hospitalist standpoint. We will sign off. Reconsult as needed. Written by Willow Valdivia, acting as scribe for Dr. Cano on 08/02/16 at 14: 39. All or portions of this note were transcribed by scribe [Willow Valdivia]. I, Dr. Mary Cano personally performed the history, physical exam, and medical decision making; and confirmed the accuracy of the information in the transcribed note. Authenticated by Dr. Mary Cano on 08/02/16 at 1500. Willow Avila Aug 02, 2016 14:43 Mary Cano MD Aug 02, 2016 20:57
[2016-08-02] MEDS: QUEtiapine FUMARATE 300 MG TAB PO SCH (20:53)
[2016-08-02 21:46] VITALS: BP 140/67; PULSE 83; RESP 18; TEMP 97.8; O2SAT 100
[2016-08-03] MEDS: LEVOTHYROXINE SODIUM 100 MCG TAB PO SCH (06:08)
[2016-08-03 06:19] VITALS: BP 127/59; PULSE 70; RESP 18; TEMP 97.1; O2SAT 99
[2016-08-03] MEDS: NICOTINE 7 MG/24 HR PATCH T-DERMAL SCH (09:00)
[2016-08-03] MEDS: REMOVE OLD PATCH T-DERMAL SCH (09:00)
[2016-08-03] MEDS: FERROUS SULFATE 325 MG (65 MG ELEMENTAL IRON) TAB PO SCH ×2 (09:11→18:00)
[2016-08-03] MEDS: risperiDONE ODT 1 MG TAB PO SCH ×2 (09:11→20:41)
[2016-08-03] MEDS: FAMOTIDINE 20 MG TAB PO SCH ×2 (09:11→20:41)
[2016-08-03] MEDS: buPROPion HCL 150 MG SUSTAINED RELEASE TAB PO SCH ×2 (09:11→20:41)
[2016-08-03] MEDS: ACYCLOVIR 200 MG CAP PO SCH ×2 (09:11→20:41)
[2016-08-03] MEDS: LISINOPRIL 20 MG TAB PO SCH (09:11)
[2016-08-03] MEDS: THIAMINE HCL 100 MG TAB PO SCH (09:11)
[2016-08-03] MEDS: FOLIC ACID 1 MG TAB PO SCH (09:12)
--- NOTE | 2016-08-03 11:40 | HHI.PYPN ---
Subjective Remarks Patient seen in her room with nurse Susan, patient calm cooperative today some improvement in her affect, she is more verbal and reactive with occasional small smile 6 relate to go to a correction in [place] called [facility], will have counselor verify. Patient denies suicidality or homicidality denies voices or visions at this time Review of Systems Except as stated in HPI: all other systems reviewed are Neg Objective Alert: Yes [place]: Person, Place Mood: Depressed, Other (restricted) Affect: Other (decrease range and intensity) Memory Intact: Comment (poor) Hallucinations: Auditory (of command threatening nature slightly softer today) Delusions: Yes Delusion Type: Paranoid (vaguely) Suicidal: Intent, Ideation Homicidal: Ideation (denies) Insight/Judgement Poor Vitals/IOs Vital Signs Date Time Temp Pulse Resp B/P Pulse Ox O2 Delivery O2 Flow Rate FiO2 08/03/16 06:19 97.1 70 18 127/59 99 Assessment & Plan Problem List: (1) Schizoaffective disorder, bipolar type ICD Code: F25.0 (2) Cocaine abuse ICD Code: F14.10 (3) Alcohol abuse ICD Code: F10.10 Assessment & Plan Estimated LOS: days patient psychosis is resolving, also appear she is showing some improved coping processing her behaviors with the resolution of the cocaine effects on her. For now continue treatment Justification for Cont. Inpt. At this time patient will decompensate if placed in the lower level of care Discharge Planning To be determined Request HC Surrog/Guard Advoc?: No Krzysztof Tello MD Aug 03, 2016 11:40
[2016-08-03 19:21] VITALS: BP 135/68; PULSE 64; RESP 18; TEMP 98.2; O2SAT 98
[2016-08-03] MEDS: QUEtiapine FUMARATE 300 MG TAB PO SCH (20:41)
[2016-08-04 06:22] VITALS: BP 117/56; PULSE 76; RESP 18; TEMP 98.6; O2SAT 98
[2016-08-04] MEDS: LEVOTHYROXINE SODIUM 100 MCG TAB PO SCH (06:35)
[2016-08-04] MEDS: NICOTINE 7 MG/24 HR PATCH T-DERMAL SCH (09:00)
[2016-08-04] MEDS: REMOVE OLD PATCH T-DERMAL SCH (09:00)
[2016-08-04] MEDS: ACYCLOVIR 200 MG CAP PO SCH ×2 (09:52→20:36)
[2016-08-04] MEDS: FERROUS SULFATE 325 MG (65 MG ELEMENTAL IRON) TAB PO SCH ×2 (09:52→18:06)
[2016-08-04] MEDS: FOLIC ACID 1 MG TAB PO SCH (09:52)
[2016-08-04] MEDS: LISINOPRIL 20 MG TAB PO SCH (09:52)
[2016-08-04] MEDS: FAMOTIDINE 20 MG TAB PO SCH ×2 (09:52→20:36)
[2016-08-04] MEDS: THIAMINE HCL 100 MG TAB PO SCH (09:52)
[2016-08-04] MEDS: buPROPion HCL 150 MG SUSTAINED RELEASE TAB PO SCH ×2 (09:52→20:36)
[2016-08-04] MEDS: risperiDONE ODT 1 MG TAB PO SCH ×2 (09:53→20:36)
[2016-08-04] MEDS: hydrOXYzine HCL 50 MG TAB PO PRN (18:11)
--- NOTE | 2016-08-04 19:02 | HHI.PYPN ---
Subjective Remarks Pt seen and discussed with staff. She reports that AH have decreased. She refused medications last night but was compliant with today. She denies medication side effects. NO SI/HI No behavioral issues on unit. Review of Systems Psychiatric: COMPLAINS OF: Hallucinations Objective Alert: Yes [place]: Person, Place, Situation Mood: Depressed Affect: Restricted Memory Intact: Comment (poor) Hallucinations: Auditory (of command threatening nature slightly softer today) Delusions: Yes Delusion Type: Paranoid (vaguely) Suicidal: Ideation (denies) Homicidal: Ideation (denies) Insight/Judgement poor Vitals/IOs Vital Signs Date Time Temp Pulse Resp B/P Pulse Ox O2 Delivery O2 Flow Rate FiO2 08/04/16 06:22 98.6 76 18 117/56 98 Assessment & Plan Problem List: (1) Schizoaffective disorder, bipolar type ICD Code: F25.0 (2) Cocaine abuse ICD Code: F14.10 (3) Alcohol abuse ICD Code: F10.10 Assessment & Plan Continue current tx plan. Estimated LOS: days Justification for Cont. Inpt. risks of decompensation Request HC Surrog/Guard Advoc?: Alina Velazquez MD Aug 04, 2016 19:02
[2016-08-04] MEDS: QUEtiapine FUMARATE 300 MG TAB PO SCH (20:36)
[2016-08-04 21:30] VITALS: BP 127/83; PULSE 78; RESP 16; TEMP 98.1; O2SAT 100
[2016-08-05 06:00] VITALS: BP 107/56; PULSE 78; RESP 18; TEMP 98; O2SAT 98
[2016-08-05] MEDS: LEVOTHYROXINE SODIUM 100 MCG TAB PO SCH (06:19)
[2016-08-05] MEDS: risperiDONE ODT 1 MG TAB PO SCH ×2 (08:29→21:08)
[2016-08-05] MEDS: ACYCLOVIR 200 MG CAP PO SCH ×2 (08:29→21:00)
[2016-08-05] MEDS: LISINOPRIL 20 MG TAB PO SCH (08:29)
[2016-08-05] MEDS: FAMOTIDINE 20 MG TAB PO SCH ×2 (08:29→21:08)
[2016-08-05] MEDS: buPROPion HCL 150 MG SUSTAINED RELEASE TAB PO SCH ×2 (08:29→21:08)
[2016-08-05] MEDS: THIAMINE HCL 100 MG TAB PO SCH (08:29)
[2016-08-05] MEDS: FOLIC ACID 1 MG TAB PO SCH (08:29)
[2016-08-05] MEDS: FERROUS SULFATE 325 MG (65 MG ELEMENTAL IRON) TAB PO SCH ×2 (08:30→16:56)
[2016-08-05] MEDS: NICOTINE 7 MG/24 HR PATCH T-DERMAL SCH (08:30)
[2016-08-05] MEDS: REMOVE OLD PATCH T-DERMAL SCH (09:00)
[2016-08-05] MEDS: hydrOXYzine HCL 50 MG TAB PO PRN (15:02)
[2016-08-05] MEDS: diphenhydrAMINE HCL 50 MG CAP PO PRN (16:56)
[2016-08-05 17:53] VITALS: BP 129/72; PULSE 81; RESP 20; TEMP 96.7; O2SAT 98
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
[2016-08-05] MEDS: QUEtiapine FUMARATE 300 MG TAB PO SCH (21:08)
[2016-08-06 06:10] VITALS: BP 99/66; PULSE 74; RESP 17; TEMP 98.4; O2SAT 97
[2016-08-06] MEDS: LEVOTHYROXINE SODIUM 100 MCG TAB PO SCH (06:11)
[2016-08-06] MEDS: risperiDONE ODT 1 MG TAB PO SCH ×2 (08:40→21:00)
[2016-08-06] MEDS: ACYCLOVIR 200 MG CAP PO SCH ×2 (08:42→21:46)
[2016-08-06] MEDS: FAMOTIDINE 20 MG TAB PO SCH ×2 (08:42→21:47)
[2016-08-06] MEDS: FOLIC ACID 1 MG TAB PO SCH (08:42)
[2016-08-06] MEDS: THIAMINE HCL 100 MG TAB PO SCH (08:42)
[2016-08-06] MEDS: FERROUS SULFATE 325 MG (65 MG ELEMENTAL IRON) TAB PO SCH ×2 (08:42→17:48)
[2016-08-06] MEDS: LISINOPRIL 20 MG TAB PO SCH (08:42)
[2016-08-06] MEDS: buPROPion HCL 150 MG SUSTAINED RELEASE TAB PO SCH ×2 (08:43→21:46)
[2016-08-06] MEDS: NICOTINE 7 MG/24 HR PATCH T-DERMAL SCH (08:43)
[2016-08-06] MEDS: REMOVE OLD PATCH T-DERMAL SCH (09:00)
--- NOTE | 2016-08-06 16:15 | HHI.PYPN ---
Subjective Remarks Patient seen in her room with nurse Jose Juan, chart reviewed. Patient noting some sedation during the day with the Respinol. Will change Respinol to all at bedtime. Patient continues to focus on finding a care home in [place]. It appears she did talk to some staff from a facility there we will have our counselor verify that. Patient states voices have diminished her anxiety is better, and she denies suicidality. Otherwise patient compliant medications for now continue treatment Review of Systems Except as stated in HPI: all other systems reviewed are Neg Objective Alert: Yes [place]: Person, Place, Situation Mood: Calm Affect: Euthymic, Restricted Memory Intact: Comment (intact) Hallucinations: Auditory (decreased) Delusions: Yes Delusion Type: Paranoid (decreased) Suicidal: Ideation (denies) Homicidal: Ideation (denies) Insight/Judgement Poor Vitals/IOs Vital Signs Date Time Temp Pulse Resp B/P Pulse Ox O2 Delivery O2 Flow Rate FiO2 08/06/16 06:10 98.4 74 17 99/66 97 Assessment & Plan Problem List: (1) Schizoaffective disorder, bipolar type ICD Code: F25.0 (2) Cocaine abuse ICD Code: F14.10 (3) Alcohol abuse ICD Code: F10.10 Assessment & Plan Estimated LOS: days patient continues somewhat manic and psychotic though resolving. We'll continue to explore placement issues Justification for Cont. Inpt. At this time patient will decompensate if placed in the lower level of care Discharge Planning To be determined Request HC Surrog/Guard Advoc?: No Krzysztof Tello MD Aug 06, 2016 16:15
[2016-08-06 17:57] VITALS: BP 102/82; PULSE 83; RESP 18; TEMP 97; O2SAT 99
[2016-08-06] MEDS: ACETAMINOPHEN 325 MG TAB PO PRN (19:30)
[2016-08-06] MEDS: hydrOXYzine HCL 50 MG TAB PO PRN (19:30)
[2016-08-06] MEDS: QUEtiapine FUMARATE 300 MG TAB PO SCH (21:46)
[2016-08-06] MEDS: diphenhydrAMINE HCL 50 MG CAP PO PRN (21:47)
[2016-08-07 06:09] VITALS: BP 140/69; PULSE 74; RESP 18; TEMP 98; O2SAT 97
[2016-08-07] MEDS: LEVOTHYROXINE SODIUM 100 MCG TAB PO SCH (06:30)
[2016-08-07] MEDS: THIAMINE HCL 100 MG TAB PO SCH (08:32)
[2016-08-07] MEDS: FERROUS SULFATE 325 MG (65 MG ELEMENTAL IRON) TAB PO SCH ×2 (08:32→18:17)
[2016-08-07] MEDS: buPROPion HCL 150 MG SUSTAINED RELEASE TAB PO SCH ×2 (08:32→21:05)
[2016-08-07] MEDS: ACYCLOVIR 200 MG CAP PO SCH ×2 (08:33→21:04)
[2016-08-07] MEDS: FOLIC ACID 1 MG TAB PO SCH (08:33)
[2016-08-07] MEDS: FAMOTIDINE 20 MG TAB PO SCH ×2 (08:33→21:05)
[2016-08-07] MEDS: LISINOPRIL 20 MG TAB PO SCH (08:33)
[2016-08-07] MEDS: hydrOXYzine HCL 50 MG TAB PO PRN ×2 (08:59→21:06)
[2016-08-07] MEDS: REMOVE OLD PATCH T-DERMAL SCH (09:00)
[2016-08-07] MEDS: NICOTINE 7 MG/24 HR PATCH T-DERMAL SCH (09:00)
--- NOTE | 2016-08-07 12:22 | HHI.PYPN ---
Subjective Remarks Patient seen in [place] with nurse Bustamante, patient continues somewhat intense though focused and no behavioral issues. She has refused her at bedtime Respinol at this time. She states voices do persist though they are "positive things. Counselors continuing to explore the possible placement in a [facility] in [place]. Patient does denies suicidality. For now continue treatment encourage compliance with medication Review of Systems Except as stated in HPI: all other systems reviewed are Neg Objective Alert: Yes [place]: Person, Place, Situation Mood: Calm Affect: Euthymic, Restricted Memory Intact: Comment (intact) Hallucinations: Auditory (decreased) Delusions: Yes Delusion Type: Paranoid (decreased) Suicidal: Ideation (denies) Homicidal: Ideation (denies) Insight/Judgement Poor Vitals/IOs Vital Signs Date Time Temp Pulse Resp B/P Pulse Ox O2 Delivery O2 Flow Rate FiO2 08/07/16 06:09 98.0 74 18 140/69 97 Assessment & Plan Problem List: (1) Schizoaffective disorder, bipolar type ICD Code: F25.0 (2) Cocaine abuse ICD Code: F14.10 (3) Alcohol abuse ICD Code: F10.10 Assessment & Plan Estimated LOS: days patient continue psychotic though somewhat resolving saying that voices are softening and less intrusive less threatening. Refusing at bedtime Respinol though compliant with the Seroquel. Counselor continues to explore possible placement in [place] Justification for Cont. Inpt. At this time patient will decompensate and placed in a lower level of care Discharge Planning To be determined Request HC Surrog/Guard Advoc?: No Krzysztof Tello MD Aug 07, 2016 12:22
[2016-08-07 16:55] VITALS: BP 128/83; PULSE 77; RESP 18; TEMP 97.2; O2SAT 100
[2016-08-07] MEDS: QUEtiapine FUMARATE 300 MG TAB PO SCH (21:05)
[2016-08-07] MEDS: risperiDONE ODT 1 MG TAB PO SCH (21:05)
[2016-08-07] MEDS: diphenhydrAMINE HCL 50 MG CAP PO PRN (21:06)
[2016-08-08 06:05] VITALS: BP 103/55; PULSE 63; RESP 18; TEMP 97.4; O2SAT 96
[2016-08-08] MEDS: LEVOTHYROXINE SODIUM 100 MCG TAB PO SCH (06:22)
[2016-08-08] MEDS: THIAMINE HCL 100 MG TAB PO SCH (08:09)
[2016-08-08] MEDS: LISINOPRIL 20 MG TAB PO SCH (08:09)
[2016-08-08] MEDS: buPROPion HCL 150 MG SUSTAINED RELEASE TAB PO SCH (08:09)
[2016-08-08] MEDS: FOLIC ACID 1 MG TAB PO SCH (08:09)
[2016-08-08] MEDS: FAMOTIDINE 20 MG TAB PO SCH (08:09)
[2016-08-08] MEDS: FERROUS SULFATE 325 MG (65 MG ELEMENTAL IRON) TAB PO SCH (08:09)
[2016-08-08] MEDS: REMOVE OLD PATCH T-DERMAL SCH (08:29)
[2016-08-08] MEDS: NICOTINE 7 MG/24 HR PATCH T-DERMAL SCH (08:29)
[2016-08-08] MEDS: ACYCLOVIR 200 MG CAP PO SCH (09:00)
--- NOTE | 2016-08-08 12:42 | HHI.PYPN ---
Subjective Remarks Patient discussed with treatment team. Patient seen on unit with nurse Mathew. Patient calmer more focused more appropriate denies suicidality. States her auditory hallucinations have markedly diminished and are now not threatening or intrusive. At this time patient does not meet Coley criteria will lift Coley act. Patient is willing to sign voluntary. Continue to work with placement now focusing on local shelters Review of Systems Except as stated in HPI: all other systems reviewed are Neg Objective Alert: Yes [place]: Person, Place, Situation Mood: Calm Affect: Euthymic, Restricted Memory Intact: Comment (intact) Hallucinations: Auditory (decreased) Delusions: Yes Delusion Type: Paranoid (decreased) Suicidal: Ideation (denies) Homicidal: Ideation (denies) Insight/Judgement Poor Vitals/IOs Vital Signs Date Time Temp Pulse Resp B/P Pulse Ox O2 Delivery O2 Flow Rate FiO2 08/08/16 06:05 97.4 63 18 103/55 96 Assessment & Plan Problem List: (1) Schizoaffective disorder, bipolar type ICD Code: F25.0 (2) Cocaine abuse ICD Code: F14.10 (3) Alcohol abuse ICD Code: F10.10 Assessment & Plan Estimated LOS: days patient calmer more appropriate, with marked decrease in her auditory hallucinations. At this time will lift Brijesh act allow patient to sign voluntary. Continue to work on placement issues Justification for Cont. Inpt. With this time patient will decompensate if place to the lower level of care Discharge Planning To be determined Request HC Surrog/Guard Advoc?: No Krzysztof Tello MD Aug 08, 2016 12:42
[2016-08-08] MEDS ORDERED: FAMO20TA2 PO (14:05)
[2016-08-08] MEDS ORDERED: VITA100T2 PO (14:05)
[2016-08-08] MEDS ORDERED: LEVO.1 PO (14:05)
[2016-08-08] MEDS ORDERED: LISI-515 PO (14:05)
[2016-08-08] MEDS ORDERED: FERR325T PO (14:05)
[2016-08-08] MEDS ORDERED: RISP1TAB54 PO (14:05)
[2016-08-08] MEDS ORDERED: QUET1TAB10 PO (14:05)
[2016-08-08] MEDS ORDERED: FOLI1TAB4 PO (14:05)
[2016-08-08] MEDS ORDERED: ACYC400T PO (14:05)
[2016-08-08] MEDS ORDERED: BUPR150CR PO (14:05)
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
== END 2016-08-08 15:30 | disposition home or self-care (01) | DRG 885 ==
LOC: H260 20:35
PROVIDERS: ADMIT Psychiatry & Neurology Psychiatry; ATTEND Psychiatry & Neurology Psychiatry
DX: F25.0 Schizoaffective disorder, bipolar type (principal); F10.10 Alcohol abuse, uncomplicated; F14.14 Cocaine abuse with cocaine-induced mood disorder; D50.9 Iron deficiency anemia, unspecified; I10 Essential (primary) hypertension; D25.9 Leiomyoma of uterus, unspecified; N92.0 Excessive and frequent menstruation with regular cycle; E03.9 Hypothyroidism, unspecified
CPT/HCPCS: 80053; 84439; 84443; 85025; Q0163

== ENCOUNTER 2016-09-17 10:56 | Emergency (ER) | payer OTHER ==
[~2016-09-17] VITALS: Ht 165.1 cm; Wt 109.0 kg
[~2016-09-17 10:56] MED LIST changes: +BUPR150CR PO; +FAMO20TA2 PO; -FERR1TAB36 PO; +FERR325T PO; +FOLI1TAB4 PO; +LEVO.1 PO; -LEVO100T5 PO; +LISI-515 PO; -LISI10TA3 PO; +QUET1TAB10 PO; +RISP1TAB54 PO; -SERO300T PO; +VITA100T2 PO; -WELLTAB39 PO; -ZANT150T2 PO
[2016-09-17 10:57] VITALS: BP 119/79; PULSE 88; RESP 20; TEMP 98; O2SAT 97
--- NOTE | 2016-09-17 12:31 | PD ---
HPI Chief Complaint: Psychiatric Symptoms Time Seen by Provider: 12:14 Travel History International Travel<30 days: No Contact w/Intl Traveler<30days: No Traveled to known affect area: No History of Present Illness HPI The patient is a 46-year-old [place] female who presents emergency department for psychiatric evaluation. The patient was placed under a Coley act in the outpatient setting by a psychiatrist for suicidal ideations with specific intent and plan. The patient does have a history of bipolar affective disorder and schizophrenia for which she takes Seroquel, Risperdal, and Wellbutrin. The patient states she started having suicidal thoughts this morning, states she has a plan to take her friend's gun and shoot herself. The patient does have previous history of suicide attempt one year ago with overdose on sleeping pills. The patient denies any current hallucinations or delusions. She does complain of suicidal thoughts without specific plan and intent. She denies illicit drug use or alcohol use. She does have a history of chronic back pain for which she takes gabapentin. PFSH Past Medical History Hx Anticoagulant Therapy: No Arthritis: Yes (HIPS, LEGS) Bipolar Disorder: Yes Anxiety: No (yes, has scripts) Depression: No Cancer: No (per pt) Cardiovascular Problems: No Chemotherapy: No Chest Pain: Yes Congestive Heart Failure: No Cerebrovascular Accident: No Diabetes: No Diminished Hearing: No Endocrine: Yes Gastrointestinal Disorders: Yes GERD: Yes Genitourinary: No Headaches: No (per pt) Hypertension: Yes Immune Disorder: No Musculoskeletal: Yes Neurologic: Yes Psychiatric: Yes Reproductive: Yes (UTERINE FIBROIDS, GENITAL HERPES) Respiratory: No Integumentary: Yes (HERPES) Schizophrenia: Yes Seizures: No (per pt) Thyroid Disease: Yes ?: Not : 6 Para: 4 Miscarriage: 1 : 1 Tubal Ligation: Yes Past Surgical History Section: Yes (X4) Gynecologic Surgery: Yes (TUBAL LIGATION, C-SECT X 4) Hysterectomy: No Other Surgery: Yes Social History Alcohol Use: Yes (OCCASIONALLY) Tobacco Use: Yes Substance Use: Yes (+IRISH) Allergies-Medications (Allergen,Severity, Reaction): Coded Allergies: Trazodone (Unverified Allergy, Severe, Nausea/Vomiting, 09/17/16) Haldol (Verified Adverse Reaction, Intermediate, Twitching, 09/17/16) Reported Meds & Prescriptions Reported Meds & Active Scripts Active Vitamin B-1 (Thiamine HCl) 100 Mg Tab 100 Mg PO DAILY Risperdal M-Tab (Risperidone) 1 Mg Tab 2 Mg PO HS Quetiapine (Quetiapine Fumarate) 300 Mg Tab 300 Mg PO HS Lisinopril 20 Mg Tab 20 Mg PO DAILY Synthroid (Levothyroxine Sodium) 100 Mcg Tab 100 Mcg PO DAILY@0600 Folate (Folic Acid) 1 Mg Tab 1 Mg PO DAILY Ferrous Sulfate 325 Mg Tab 325 Mg PO BIDPC Famotidine 20 Mg Tab 20 Mg PO BID Wellbutrin SR 12 HR (Bupropion HCl) 150 Mg Tab 150 Mg PO BID Acyclovir 400 Mg Tab 400 Mg PO BID Deltasone (Prednisone) 20 Mg Tab 40 Mg PO DAILY 4 Days start 05/22/2016 Proair Hfa 8.5 GM Inh (Albuterol Sulfate) 90 Mcg/Act Aer 2 Puff INH Q4-6H PRN 108 mcg/actuation Reported Vistaril (Hydroxyzine Pamoate) 50 Mg Cap 50 Mg PO BID Tramadol (Tramadol HCl) 50 Mg Tab 50 Mg PO Q8H PRN Acyclovir 400 Mg Tab 400 Mg PO BID Review of Systems Except as stated in HPI: all other systems reviewed are Neg Cardiovascular: No: Chest Pain or Discomfort Respiratory: No: Shortness of Breath Gastrointestinal: No: Nausea, Vomiting, Abdominal Pain Musculoskeletal: Positive: Pain (right back pain), No: Weakness Psychiatric: Positive: Suicidal Ideations, Disorder of Thought, Mood Disorder, No: Substance Abuse, Homicidal Ideation Physical Exam Narrative GENERAL: Awake, alert, pleasant 46-year-old female who appears her stated age and is in no acute respiratory distress. SKIN: Focused skin assessment warm/dry. HEAD: Atraumatic. Normocephalic. EYES: Pupils equal and round. No injection or drainage.. ENT: No nasal bleeding or discharge. Mucous membranes pink and moist. NECK: Trachea midline. No JVD. CARDIOVASCULAR: Regular rate and rhythm. No murmur appreciated. RESPIRATORY: No accessory muscle use. Clear to auscultation. Breath sounds equal bilaterally. GASTROINTESTINAL: Abdomen soft, non-tender, nondistended. Obese, no rebound tenderness. MUSCULOSKELETAL: No obvious deformities. No clubbing. No cyanosis. No edema. NEUROLOGICAL: Awake and alert. No obvious cranial nerve deficits. Motor grossly within normal limits. Normal speech. Oriented to person, place, month, year, and tier lift truck operator. PSYCHIATRIC: Flat affect. Insight and judgment appear normal. Data Data Last Documented VS Vital Signs Date Time Temp Pulse Resp B/P Pulse Ox O2 Delivery O2 Flow Rate FiO2 09/17/16 12:50 87 18 139/66 97 Room Air 09/17/16 10:57 98.0 Orders Complete Blood Count With Diff (09/17/16 12:26) Comprehensive Metabolic Panel (09/17/16 12:26) Urinalysis - C+S If Indicated (09/17/16 12:26) Psych Screen (09/17/16 12:26) Drug Screen, Random Urine (09/17/16 12:26) Diet Regular Basic (09/17/16 Lunch) Labs Laboratory Tests Test 09/17/16 12:40 White Blood Count 3.8 TH/MM3 Red Blood Count 3.99 MIL/MM3 Hemoglobin 11.1 GM/DL Hematocrit 33.3 % Mean Corpuscular Volume 83.3 FL Mean Corpuscular Hemoglobin 27.8 PG Mean Corpuscular Hemoglobin 33.4 % Concent Red Cell Distribution Width 20.4 % Platelet Count 193 TH/MM3 Mean Platelet Volume 9.6 FL Neutrophils (%) (Auto) 66.1 % Lymphocytes (%) (Auto) 20.4 % Monocytes (%) (Auto) 9.2 % Eosinophils (%) (Auto) 3.6 % Basophils (%) (Auto) 0.7 % Neutrophils # (Auto) 2.5 TH/MM3 Lymphocytes # (Auto) 0.8 TH/MM3 Monocytes # (Auto) 0.4 TH/MM3 Eosinophils # (Auto) 0.1 TH/MM3 Basophils # (Auto) 0.0 TH/MM3 CBC Comment AUTO DIFF Differential Comment AUTO DIFF CONFIRMED Urine Color YELLOW Urine Turbidity CLEAR Urine pH 6.0 Urine Specific [place] 1.014 Urine Protein NEG mg/dL Urine Glucose (UA) TRACE mg/dL Urine Ketones NEG mg/dL Urine Occult Blood NEG Urine Nitrite NEG Urine Bilirubin NEG Urine Urobilinogen LESS THAN 2.0 MG/DL Urine Leukocyte Esterase NEG Urine Squamous Epithelial <1 /hpf Cells Urine Bacteria RARE /hpf Microscopic Urinalysis Comment CULT NOT INDICATED Sodium Level 139 MEQ/L Potassium Level 4.0 MEQ/L Chloride Level 104 MEQ/L Carbon Dioxide Level 29.9 MEQ/L Anion Gap 5 MEQ/L Blood Urea Nitrogen 19 MG/DL Creatinine 1.01 MG/DL Estimat Glomerular Filtration 71 ML/MIN Rate Random Glucose 159 MG/DL Calcium Level 8.6 MG/DL Total Bilirubin 0.2 MG/DL Aspartate Amino Transf 32 U/L (AST/SGOT) Alanine Aminotransferase 35 U/L (ALT/SGPT) Alkaline Phosphatase 71 U/L Total Protein 6.9 GM/DL Albumin 3.2 GM/DL Urine Opiates Screen NEG Urine Barbiturates Screen NEG Urine Amphetamines Screen NEG Urine Benzodiazepines Screen POS Urine Cocaine Screen NEG Urine Cannabinoids Screen NEG MDM Medical Decision Making Medical Screen Exam Complete: Yes Emergency Medical Condition: Yes Medical Record Reviewed: Yes Interpretation(s) Laboratory Tests Test 09/17/16 12:40 White Blood Count 3.8 TH/MM3 Red Blood Count 3.99 MIL/MM3 Hemoglobin 11.1 GM/DL Hematocrit 33.3 % Mean Corpuscular Volume 83.3 FL Mean Corpuscular Hemoglobin 27.8 PG Mean Corpuscular Hemoglobin 33.4 % Concent Red Cell Distribution Width 20.4 % Platelet Count 193 TH/MM3 Mean Platelet Volume 9.6 FL Neutrophils (%) (Auto) 66.1 % Lymphocytes (%) (Auto) 20.4 % Monocytes (%) (Auto) 9.2 % Eosinophils (%) (Auto) 3.6 % Basophils (%) (Auto) 0.7 % Neutrophils # (Auto) 2.5 TH/MM3 Lymphocytes # (Auto) 0.8 TH/MM3 Monocytes # (Auto) 0.4 TH/MM3 Eosinophils # (Auto) 0.1 TH/MM3 Basophils # (Auto) 0.0 TH/MM3 CBC Comment AUTO DIFF Urine Color YELLOW Urine Turbidity CLEAR Urine pH 6.0 Urine Specific [place] 1.014 Urine Protein NEG mg/dL Urine Glucose (UA) TRACE mg/dL Urine Ketones NEG mg/dL Urine Occult Blood NEG Urine Nitrite NEG Urine Bilirubin NEG Urine Urobilinogen LESS THAN 2.0 MG/DL Urine Leukocyte Esterase NEG Urine Squamous Epithelial <1 /hpf Cells Urine Bacteria RARE /hpf Microscopic Urinalysis Comment CULT NOT INDICATED Sodium Level 139 MEQ/L Potassium Level 4.0 MEQ/L Chloride Level 104 MEQ/L Carbon Dioxide Level 29.9 MEQ/L Anion Gap 5 MEQ/L Blood Urea Nitrogen 19 MG/DL Creatinine 1.01 MG/DL Estimat Glomerular Filtration 71 ML/MIN Rate Random Glucose 159 MG/DL Calcium Level 8.6 MG/DL Total Bilirubin 0.2 MG/DL Aspartate Amino Transf 32 U/L (AST/SGOT) Alanine Aminotransferase 35 U/L (ALT/SGPT) Alkaline Phosphatase 71 U/L Total Protein 6.9 GM/DL Albumin 3.2 GM/DL Urine Opiates Screen NEG Urine Barbiturates Screen NEG Urine Amphetamines Screen NEG Urine Benzodiazepines Screen POS Urine Cocaine Screen NEG Urine Cannabinoids Screen NEG Differential Diagnosis Differential diagnosis includes schizoaffective disorder, bipolar affective disorder, mood disorder, Coley Act, suicidal ideation, posttraumatic stress disorder. Narrative Course Labs were drawn and sent. Psychiatric evaluation was ordered. Labs are unremarkable. Patient is medically cleared to be evaluated by psychiatry. Disposition as per psych. Diagnosis Primary Impression: Schizoaffective disorder, bipolar type Additional Impression: Suicidal ideation Condition: Stable Darryl Thompson MD September 17, 2016 12:31
[2016-09-17 12:50] VITALS: BP 139/66; PULSE 87; RESP 18; O2SAT 97
[2016-09-17 13:04] LABS: AUTOMATED NEUTROPHIL # 2.5 TH/MM3 (1.8-7.7); BASOPHIL % 0.7 % (0.0-2.0); EOSINOPHIL # 0.1 TH/MM3 (0-0.4); EOSINOPHIL % 3.6 % (0.0-4.0); HEMATOCRIT 33.3 % (35.0-46.0); LYMPH % 20.4 % (9.0-44.0); LYMPHOCYTE # 0.8 TH/MM3 (1.0-4.8); MEAN CELL VOLUME 83.3 FL (80.0-100.0); MEAN CORPUSCULAR HEMOGLOBIN 27.8 PG (27.0-34.0); MEAN CORPUSCULAR HGB CONC 33.4 % (32.0-36.0); MONO % 9.2 % (0.0-8.0); NEUT % 66.1 % (16.0-70.0); PLATELET COUNT 193 TH/MM3 (150-450); RED BLOOD COUNT 3.99 MIL/MM3 (4.00-5.30); RED CELL DISTRIBUTION WIDTH 20.4 % (11.6-17.2); WHITE BLOOD COUNT 3.8 TH/MM3 (4.0-11.0)
[2016-09-17 13:06] LABS: HEMO FLAGS AUTO DIFF
[2016-09-17 13:14] LABS: AMPHETAMINE, URINE NEG (NEG); BACTERIA, URINE RARE /hpf; BARBITURATES, URINE NEG (NEG); BLOOD, URINE NEG (NEG); COCAINE, URINE NEG (NEG); GLUCOSE,URINE TRACE mg/dL (NEG); KETONE, URINE NEG (NEG); NITRITE,URINE NEG (NEG); SQUAMOUS EPITHELIAL CELL URINE <1 /hpf (0-5); URINE COLOR YELLOW (YELLW/STRAW)
[2016-09-17 13:20] LABS: COMMENT (UR) CULT NOT INDICATED; CULTURE IF INDICATED CULT NOT INDICATED
[2016-09-17 13:26] LABS: ALKALINE PHOSPHATASE 71 U/L (45-117); ALT (GPT) 35 U/L (10-53); TOTAL BILIRUBIN ADULT 0.2 MG/DL (0.2-1.0)
[2016-09-17 13:31] LABS: ANION GAP 5 MEQ/L (5-15); AST (GOT) 32 U/L (15-37); BICARBONATE 29.9 MEQ/L (21.0-32.0); BLOOD UREA NITROGEN 19 MG/DL (7-18); CHLORIDE 104 MEQ/L (98-107); GLOMERULAR FILTRATION RATE 71 ML/MIN (>89); SODIUM (NA) 139 MEQ/L (136-145)
[2016-09-17 13:43] LABS: SCAN/DIFF AUTO DIFF CONFIRMED
[2016-09-17 17:50] VITALS: BP 136/71; PULSE 80; RESP 14; O2SAT 100
[2016-09-17 20:00] VITALS: BP 129/74; PULSE 81; RESP 18; O2SAT 98
[2016-09-17 22:00] VITALS: BP 148/73; PULSE 80; RESP 19; O2SAT 94
[2016-09-18 02:21] VITALS: BP 107/67; PULSE 73; RESP 19; O2SAT 99
[2016-09-18 06:00] VITALS: BP 129/61; PULSE 76; RESP 19; O2SAT 97
[2016-09-18 07:29] VITALS: BP 129/61; TEMP 98.1
== END 2016-09-18 07:37 ==
LOC: NEPD 10:56 → NEPJ 09-18 07:37
DX: F20.9 Schizophrenia, unspecified (principal); F31.9 Bipolar disorder, unspecified; I10 Essential (primary) hypertension; Z72.0 Tobacco use
CPT/HCPCS: 80053; 80307; 81001; 85025; 99285

== ENCOUNTER 2016-11-14 16:30 | Inpatient (IN) | payer OTHER ==
[~2016-11-14] VITALS: Ht 165.1 cm; Wt 110.7 kg
[~2016-11-14 16:30] MED LIST changes: -ACYC400T PO; -PRED-503 PO
[2016-11-14 17:50] VITALS: BP 119/76; PULSE 85; RESP 16; TEMP 98.4; O2SAT 98
[2016-11-14 17:56] VITALS: BP 119/76; PULSE 85; RESP 16; TEMP 98.4; O2SAT 98
--- NOTE | 2016-11-14 18:22 | PD ---
HPI Chief Complaint: Psychiatric Symptoms Time Seen by Provider: 18:21 Travel History International Travel<30 days: No Contact w/Intl Traveler<30days: No Traveled to known affect area: No History of Present Illness HPI Patient is a 46-year-old female presents emergency department for 2 issues: For she had a slip and fall impacting her right hip approximately 2 hours prior to arrival, she denies any injury denies loss of consciousness. She states she's been ambulatory since slipping and falling. Complaining of right knee pain and right hip pain. Patient has a secondary complaint of suicidal ideation, she states that she wants to go from our her neighbor's gun to shoot herself or take a bunch of pills. Patient states she recently moved to the area is not had her psychiatric medicines. She's been taking her Synthroid as prescribed and lasted a dose last night. She denies any chest pain shortness of breath abdominal pain chest pain PFSH Past Medical History Hx Anticoagulant Therapy: No Arthritis: Yes (HIPS, LEGS) Bipolar Disorder: Yes Anxiety: Yes Depression: Yes Cancer: No (per pt) Cardiovascular Problems: No Chemotherapy: No Chest Pain: Yes Congestive Heart Failure: No Cerebrovascular Accident: No Diabetes: No Diminished Hearing: No Endocrine: Yes Gastrointestinal Disorders: Yes GERD: Yes Genitourinary: No Headaches: Yes Hypertension: Yes Immune Disorder: No Musculoskeletal: Yes Neurologic: Yes Psychiatric: Yes Reproductive: Yes (UTERINE FIBROIDS, GENITAL HERPES) Respiratory: No Integumentary: Yes (HERPES) Migraines: Yes Schizophrenia: Yes Seizures: No (per pt) Thyroid Disease: Yes ?: Not : 6 Para: 4 Miscarriage: 1 : 1 Tubal Ligation: Yes Past Surgical History Section: Yes (X 4) Gynecologic Surgery: Yes (TUBAL LIGATION, C-SECT X 4) Hysterectomy: Yes Other Surgery: Yes Social History Alcohol Use: No Tobacco Use: Yes Substance Use: Yes Allergies-Medications (Allergen,Severity, Reaction): Coded Allergies: Trazodone (Unverified Allergy, Severe, Nausea/Vomiting, 09/17/16) Haldol (Verified Adverse Reaction, Intermediate, Twitching, 09/17/16) Reported Meds & Prescriptions Reported Meds & Active Scripts Active Vitamin B-1 (Thiamine HCl) 100 Mg Tab 100 Mg PO DAILY Risperdal M-Tab (Risperidone) 1 Mg Tab 2 Mg PO HS Quetiapine (Quetiapine Fumarate) 300 Mg Tab 300 Mg PO HS Lisinopril 20 Mg Tab 20 Mg PO DAILY Synthroid (Levothyroxine Sodium) 100 Mcg Tab 100 Mcg PO DAILY@0600 Folate (Folic Acid) 1 Mg Tab 1 Mg PO DAILY Ferrous Sulfate 325 Mg Tab 325 Mg PO BIDPC Famotidine 20 Mg Tab 20 Mg PO BID Wellbutrin SR 12 HR (Bupropion HCl) 150 Mg Tab 150 Mg PO BID Proair Hfa 8.5 GM Inh (Albuterol Sulfate) 90 Mcg/Act Aer 2 Puff INH Q4-6H PRN 108 mcg/actuation Reported Vistaril (Hydroxyzine Pamoate) 50 Mg Cap 50 Mg PO BID Tramadol (Tramadol HCl) 50 Mg Tab 50 Mg PO Q8H PRN Review of Systems Except as stated in HPI: all other systems reviewed are Neg Physical Exam Narrative GENERAL: Well-developed morbidly obese patient in no apparent distress. SKIN: Focused skin assessment warm/dry. HEAD: Atraumatic. Normocephalic. No galarza signs no raccoons eyes. EYES: Pupils equal and round. No scleral icterus. No injection or drainage. ENT: No nasal bleeding or discharge. Mucous membranes pink and moist. NECK: Trachea midline. No JVD. CARDIOVASCULAR: Regular rate and rhythm. No murmur appreciated. RESPIRATORY: No accessory muscle use. Clear to auscultation. Breath sounds equal bilaterally. GASTROINTESTINAL: Abdomen soft, non-tender, nondistended. Hepatic and splenic margins not palpable. MUSCULOSKELETAL: No tenderness on the CT or L-spine, pelvis stable, no tenderness at either hip either knee or either ankle. Patient is been ambulatory since falling. No upper extremity tenderness. NEUROLOGICAL: Awake and alert. No obvious cranial nerve deficits. Motor grossly within normal limits. Normal speech. PSYCHIATRIC: Endorses suicidal ideation without planning, depressed mood and flat affect. Data Data Last Documented VS Vital Signs Date Time Temp Pulse Resp B/P Pulse Ox O2 Delivery O2 Flow Rate FiO2 11/14/16 17:56 98.4 85 16 119/76 98 11/14/16 17:50 Room Air Orders Complete Blood Count With Diff (11/14/16 18:21) Comprehensive Metabolic Panel (11/14/16 18:21) Thyroid Stimulating Hormone (11/14/16 18:21) Psych Screen (11/14/16 18:21) Drug Screen, Random Urine (11/14/16 18:21) Alcohol (Ethanol) (11/14/16 18:21) Salicylates (Aspirin) (11/14/16 18:21) Tylenol (Acetaminophen) (11/14/16 18:21) Labs Laboratory Tests Test 11/14/16 11/14/16 18:00 18:30 Urine Opiates Screen NEG Urine Barbiturates Screen NEG Urine Amphetamines Screen NEG Urine Benzodiazepines Screen NEG Urine Cocaine Screen POS Urine Cannabinoids Screen NEG White Blood Count 3.7 TH/MM3 Red Blood Count 4.00 MIL/MM3 Hemoglobin 11.5 GM/DL Hematocrit 36.2 % Mean Corpuscular Volume 90.6 FL Mean Corpuscular Hemoglobin 28.7 PG Mean Corpuscular Hemoglobin 31.7 % Concent Red Cell Distribution Width 14.9 % Platelet Count 211 TH/MM3 Mean Platelet Volume 9.3 FL Neutrophils (%) (Auto) 65.4 % Lymphocytes (%) (Auto) 22.4 % Monocytes (%) (Auto) 9.2 % Eosinophils (%) (Auto) 2.4 % Basophils (%) (Auto) 0.6 % Neutrophils # (Auto) 2.4 TH/MM3 Lymphocytes # (Auto) 0.8 TH/MM3 Monocytes # (Auto) 0.3 TH/MM3 Eosinophils # (Auto) 0.1 TH/MM3 Basophils # (Auto) 0.0 TH/MM3 CBC Comment DIFF FINAL Differential Comment Sodium Level 134 MEQ/L Potassium Level 3.7 MEQ/L Chloride Level 103 MEQ/L Carbon Dioxide Level 23.7 MEQ/L Anion Gap 7 MEQ/L Blood Urea Nitrogen 19 MG/DL Creatinine 1.26 MG/DL Estimat Glomerular Filtration 55 ML/MIN Rate Random Glucose 129 MG/DL Calcium Level 8.7 MG/DL Total Bilirubin 0.3 MG/DL Aspartate Amino Transf 29 U/L (AST/SGOT) Alanine Aminotransferase 45 U/L (ALT/SGPT) Alkaline Phosphatase 70 U/L Total Protein 7.1 GM/DL Albumin 3.2 GM/DL Thyroid Stimulating Hormone 1.250 uIU/ML 3rd Gen Salicylates Level 2.8 MG/DL Acetaminophen Level LESS THAN 2.0 MCG/ML Ethyl Alcohol Level LESS THAN 3 MG/DL MDM Medical Decision Making Medical Screen Exam Complete: Yes Emergency Medical Condition: Yes Differential Diagnosis Knee contusion, head contusion, hypothyroidism, suicidal ideation. Narrative Course Patient roomed in emergency department, by [place] knee and ankle rules she does not meet criteria for imaging. No hip tenderness and she has been ambulatory. C-spine is cleared by [facility], CT head is cleared by [facility] CT head rolls. Basic laboratory workup has been ordered according to psychiatric protocols. She is medically cleared for psychiatric evaluation and disposition. Patient was placed under Coley act by me by suicidal ideation and planning. Labs are been reviewed by me, unimpressive TSH, CBC and CMP fairly unimpressive , cocaine positive. She remains medically stable for psychiatric evaluation disposition. Diagnosis Primary Impression: Fall Additional Impressions: Knee pain Suicidal ideation Condition: Stable Eduardo Caban MD Nov 14, 2016 18:22
[2016-11-14 18:45] LABS: AUTOMATED NEUTROPHIL # 2.4 TH/MM3 (1.8-7.7); BASOPHIL % 0.6 % (0.0-2.0); EOSINOPHIL # 0.1 TH/MM3 (0-0.4); EOSINOPHIL % 2.4 % (0.0-4.0); HEMATOCRIT 36.2 % (35.0-46.0); HEMO FLAGS DIFF FINAL; LYMPH % 22.4 % (9.0-44.0); LYMPHOCYTE # 0.8 TH/MM3 (1.0-4.8); MEAN CELL VOLUME 90.6 FL (80.0-100.0); MEAN CORPUSCULAR HEMOGLOBIN 28.7 PG (27.0-34.0); MEAN CORPUSCULAR HGB CONC 31.7 % (32.0-36.0); MONO % 9.2 % (0.0-8.0); NEUT % 65.4 % (16.0-70.0); PLATELET COUNT 211 TH/MM3 (150-450); RED CELL DISTRIBUTION WIDTH 14.9 % (11.6-17.2); WHITE BLOOD COUNT 3.7 TH/MM3 (4.0-11.0)
[2016-11-14 19:09] LABS: ANION GAP 7 MEQ/L (5-15); BICARBONATE 23.7 MEQ/L (21.0-32.0); BLOOD UREA NITROGEN 19 MG/DL (7-18); CHLORIDE 103 MEQ/L (98-107); GLOMERULAR FILTRATION RATE 55 ML/MIN (>89); POTASSIUM 3.7 MEQ/L (3.5-5.1); SODIUM (NA) 134 MEQ/L (136-145)
[2016-11-14 19:24] LABS: ACETAMINOPHEN LESS THAN 2.0 MCG/ML (10.0-30.0); ALKALINE PHOSPHATASE 70 U/L (45-117); ALT (GPT) 45 U/L (10-53); AST (GOT) 29 U/L (15-37); TOTAL BILIRUBIN ADULT 0.3 MG/DL (0.2-1.0)
[2016-11-14 19:31] LABS: AMPHETAMINE, URINE NEG (NEG); BARBITURATES, URINE NEG (NEG); COCAINE, URINE POS (NEG)
[2016-11-14 22:03] VITALS: BP 136/60; PULSE 73; RESP 17; O2SAT 96
[2016-11-14] MEDS ORDERED: ACYC400T PO (22:17)
[2016-11-14] MEDS ORDERED: FERR324T8 PO (22:22)
[2016-11-14] MEDS ORDERED: OMEP20TA PO (22:30)
[2016-11-14] MEDS ORDERED: MELO7.5T4 PO (22:33)
[2016-11-14] MEDS ORDERED: GABA300C5 PO (22:33)
[2016-11-15 02:28] VITALS: BP 141/70; PULSE 67; RESP 19; O2SAT 100
[2016-11-15 06:06] VITALS: BP 122/56; PULSE 68; RESP 18; O2SAT 97
[2016-11-15 13:50] VITALS: BP 153/74; PULSE 84; RESP 17; TEMP 97.4; O2SAT 96
--- NOTE | 2016-11-15 14:28 | PD ---
History of Present Illness Chief Complaint: Psychiatric Symptoms Time Seen by Provider: 13:45 Travel History International Travel<30 Days: No Contact w/Intl Traveler<30days: No Known affected area: No Legal Status Legal Status: Coley Act Coley Act Signed By: ROBERTO CARLOS SHULTZ MD [facility] History of Present Illness: History of Present Illness HPI Patient is a 46-year-old female with history of schizoaffective disorder bipolar type as well as cocaine abuse and alcohol abuse who presents emergency department for evaluation of hip pain after reported fall as well as for complaint of suicidal ideation reporting to Ed provider " that she wants to go and use her neighbor's gun to shoot herself or take a bunch of pills." Patient states she recently moved to the area is not had her psychiatric medicines. Patient was placed under an involuntary status by Dr. Shultz. The patient presents with positive toxicology for cocaine and admits to use of such substance as well as use of alcohol. BAL is undetectable. She was monitored in J pod and she presented no suicidality or behavioral concerns however she continued to endorse suicidal ideation. EMR is reviewed. She was last evaluated by psychiatry in September of this year and was sent to [facility]. Her last psychiatric admission here at [facility] was on july 2016. Patient was under a BA for suicidal ideation. She has 2 previous reported attempts reported by overdose as well as by jumping in front of traffic. Patient is seen in J pod. She is an obese AA female who appears disheveled. She is alert and oriented. She presents as dysphoric. States she "is tired of living". That she came to the hospital because she " want to commit suicide" and that she will either shoot herself or that if she is discharged she will " take a bunch of pills and you will hear about it on the news". She becomes defensive and angry when she is questioned regarding her use of substances. She does not present any other symptoms except stating " I feel hopeless". Recent stressor include the reported of her sister 3 weeks ago. She does not endorse hallucinations, delusions or paranoia. She has not been compliant with her outpatietn tretametn and has not been taking her medications. PFSH Past Medical History Hx Anticoagulant Therapy: No Arthritis: Yes (HIPS, LEGS) Bipolar Disorder: Yes Anxiety: Yes Depression: Yes Cancer: No (per pt) Cardiovascular Problems: No Chemotherapy: No Chest Pain: Yes Congestive Heart Failure: No Cerebrovascular Accident: No Diabetes: No Diminished Hearing: No Endocrine: Yes Gastrointestinal Disorders: Yes GERD: Yes Genitourinary: No Headaches: Yes Hypertension: Yes Immune Disorder: No Musculoskeletal: Yes Neurologic: Yes Psychiatric: Yes Reproductive: Yes (UTERINE FIBROIDS, GENITAL HERPES) Respiratory: No Integumentary: Yes (HERPES) Migraines: Yes Schizophrenia: Yes Seizures: No (per pt) Thyroid Disease: Yes ?: Not : 6 Para: 4 Miscarriage: 1 : 1 Tubal Ligation: Yes Past Surgical History Section: Yes (X 4) Gynecologic Surgery: Yes (TUBAL LIGATION, C-SECT X 4) Hysterectomy: Yes Other Surgery: Yes Psychiatric History Psychiatric History Hx Psychiatric Treatment: Patient with stated history of bipolar disorder . Past admit dx for cocaine abuse, cocaine-induced mood disorder and schizoaffective disorder, bipolar type. Last admit to [facility] was Jul 30 - Aug 08, 2016 for adjustment disorder. Patient denies any current psychiatric treatment. History of Inpatient Treatment: Yes Social History Single female.Lives with her boyfriend. On disability Hx Alcohol Use: No Hx Tobacco Use: Yes Hx Substance Use: Yes (fifth of vodka daily; 4-5 cig. daily) Substance Use Type: Alcohol, Nicotine/Cigarettes, Cocaine Other Substances Used: chronic cocaine abuser Hx of Substance Use [facility]: [facility] Family Psychiatric History Negative Allergies-Medications (Allergen,Severity, Reaction): Coded Allergies: Trazodone (Unverified Allergy, Severe, Nausea/Vomiting, 09/17/16) Haldol (Verified Adverse Reaction, Intermediate, Twitching, 09/17/16) Reported Meds & Prescriptions Reported Meds & Active Scripts Active Risperdal M-Tab (Risperidone) 1 Mg Tab 2 Mg PO HS Quetiapine (Quetiapine Fumarate) 300 Mg Tab 300 Mg PO HS Lisinopril 20 Mg Tab 20 Mg PO DAILY Synthroid (Levothyroxine Sodium) 100 Mcg Tab 100 Mcg PO DAILY@0600 Wellbutrin SR 12 HR (Bupropion HCl) 150 Mg Tab 150 Mg PO BID Proair Hfa 8.5 GM Inh (Albuterol Sulfate) 90 Mcg/Act Aer 2 Puff INH Q4-6H PRN 108 mcg/actuation Reported Gabapentin 300 Mg Cap 300 Mg PO BID Meloxicam 7.5 Mg Tab Unknown Dose PO DAILY Omeprazole 20 Mg Tab 20 Mg PO BID Ferrous Fumarate 324 Mg Tab 325 Mg PO BIDPC Acyclovir 400 Mg Tab 400 Mg PO BID Vistaril (Hydroxyzine Pamoate) 50 Mg Cap 50 Mg PO BID Review of Systems Musculoskeletal: COMPLAINS OF: Back pain Psychiatric: COMPLAINS OF: Depression, Suicidal Ideation Exam Alert: Yes [place]: Person (ox4) Mood: Angry, Depressed Affect: Other (angry) Speech: Clear, Logical Eye Contact: Indirect Memory Intact: Comment (no impairmetn) Hallucinations: Other (Negative) Delusions: No Suicidal: Plan (shoot self or take pills ), Ideation Homicidal: Ideation (negative) Insight/Judgement Poor. Poor MDM Medical Decision Making Medical Record Reviewed: Yes Assessment/Plan 46 year old female with hx of schizoaffective disorder, bipolar type as well as substance use disorder including cocaine and alcohol, non compliant with psychiatric treatment who presented for evaluation of hip pain as well as suicidal ideation. Patient positive for cocaine. At the time of this evaluation she continues to endorse suicidal ideation and threatens that if she is discharged " you will read about it in the news". Patient will be admitted to inpatient treatment to stabilize mood, initiate medication, maintain safety. Orders Complete Blood Count With Diff (11/14/16 18:21) Comprehensive Metabolic Panel (11/14/16 18:21) Thyroid Stimulating Hormone (11/14/16 18:21) Psych Screen (11/14/16 18:21) Drug Screen, Random Urine (11/14/16 18:21) Alcohol (Ethanol) (11/14/16 18:21) Salicylates (Aspirin) (11/14/16 18:21) Tylenol (Acetaminophen) (11/14/16 18:21) Diet Regular Basic (11/15/16 Breakfast) Diet Regular Basic (11/15/16 Lunch) Results Vital Signs Date Time Temp Pulse Resp B/P Pulse Ox O2 Delivery O2 Flow Rate FiO2 11/15/16 13:50 97.4 84 17 153/74 96 11/15/16 06:06 68 18 122/56 97 Room Air 11/15/16 02:28 67 19 141/70 100 Room Air 11/14/16 22:03 73 17 136/60 96 Room Air 11/14/16 17:56 98.4 85 16 119/76 98 11/14/16 17:50 98.4 85 16 119/76 98 Room Air Laboratory Tests Test 11/14/16 11/14/16 18:00 18:30 Urine Opiates Screen NEG Urine Barbiturates Screen NEG Urine Amphetamines Screen NEG Urine Benzodiazepines Screen NEG Urine Cocaine Screen POS Urine Cannabinoids Screen NEG White Blood Count 3.7 Red Blood Count 4.00 Hemoglobin 11.5 Hematocrit 36.2 Mean Corpuscular Volume 90.6 Mean Corpuscular Hemoglobin 28.7 Mean Corpuscular Hemoglobin 31.7 Concent Red Cell Distribution Width 14.9 Platelet Count 211 Mean Platelet Volume 9.3 Neutrophils (%) (Auto) 65.4 Lymphocytes (%) (Auto) 22.4 Monocytes (%) (Auto) 9.2 Eosinophils (%) (Auto) 2.4 Basophils (%) (Auto) 0.6 Neutrophils # (Auto) 2.4 Lymphocytes # (Auto) 0.8 Monocytes # (Auto) 0.3 Eosinophils # (Auto) 0.1 Basophils # (Auto) 0.0 CBC Comment DIFF FINAL Differential Comment Sodium Level 134 Potassium Level 3.7 Chloride Level 103 Carbon Dioxide Level 23.7 Anion Gap 7 Blood Urea Nitrogen 19 Creatinine 1.26 Estimat Glomerular Filtration 55 Rate Random Glucose 129 Calcium Level 8.7 Total Bilirubin 0.3 Aspartate Amino Transf 29 (AST/SGOT) Alanine Aminotransferase 45 (ALT/SGPT) Alkaline Phosphatase 70 Total Protein 7.1 Albumin 3.2 Thyroid Stimulating Hormone 1.250 3rd Gen Salicylates Level 2.8 Acetaminophen Level LESS THAN 2.0 Ethyl Alcohol Level LESS THAN 3 Diagnosis Primary Impression: Schizoaffective disorder, bipolar type Additional Impressions: Cocaine abuse Substance induced mood disorder Admitting Information Admitting Physician Requests: Admit Condition: Stable Problem Qualifiers Dionne Trinidad [facility] Nov 15, 2016 14:27
[2016-11-15] MEDS ORDERED: ACETAMINOPHEN 325 MG TAB PO PRN (14:45)
[2016-11-15] MEDS ORDERED: ALUMINUM/MAGNESIUM/SIMETH 30 ML CUP PO PRN (14:45)
[2016-11-15] MEDS ORDERED: MAGNESIUM HYDROXIDE SUSP 30 ML CUP PO PRN (14:45)
[2016-11-15 14:53] VITALS: BP 153/74; PULSE 84; RESP 17
[2016-11-15 15:25] VITALS: BP 124/69; PULSE 77; RESP 18; TEMP 98.2; O2SAT 99
[2016-11-15] MEDS ORDERED: QUEtiapine FUMARATE 100 MG TAB PO ONE (21:45)
[2016-11-16 10:07] LABS: ANION GAP 9 MEQ/L (5-15); BICARBONATE 25.3 MEQ/L (21.0-32.0); BLOOD UREA NITROGEN 20 MG/DL (7-18); CHLORIDE 104 MEQ/L (98-107); GLOMERULAR FILTRATION RATE 59 ML/MIN (>89); POTASSIUM 3.7 MEQ/L (3.5-5.1); SODIUM (NA) 138 MEQ/L (136-145)
[2016-11-16 10:14] LABS: HDL CHOLESTEROL 46.3 MG/DL (40.0-60.0); LDL CHOLESTEROL 75 MG/DL (0-99)
[2016-11-16] MEDS ORDERED: ALBUTEROL SULFATE 90 MCG/ACT HFA 18 GM INHALER INH PRN (11:45)
[2016-11-16] MEDS ORDERED: ALUMINUM/MAGNESIUM/SIMETH 30 ML CUP PO PRN (11:45)
[2016-11-16] MEDS ORDERED: MAGNESIUM HYDROXIDE SUSP 30 ML CUP PO PRN (11:45)
[2016-11-16] MEDS ORDERED: ACETAMINOPHEN 325 MG TAB PO PRN (11:45)
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
[2016-11-16 16:40] LABS: HEMOGLOBIN A1a 0.9 %; HEMOGLOBIN A1b 0.7 %; HEMOGLOBIN Ao 86.3 %; HEMOGLOBIN F 1.2 %; HEMOGLOBIN P3 3.3 %
[2016-11-16] MEDS: FERROUS FUMARATE 325 MG TAB (106 MG ELEMENTAL IRON) PO SCH (18:00)
[2016-11-16 19:54] VITALS: BP 115/56; PULSE 67; RESP 16; O2SAT 100
[2016-11-16] MEDS: ACYCLOVIR 200 MG CAP PO SCH (21:00)
[2016-11-16] MEDS ORDERED: risperiDONE ODT 1 MG TAB PO SCH (21:00)
[2016-11-16] MEDS: PANTOPRAZOLE SOD 20 MG DELAYED RELEASE TAB PO SCH (21:11)
[2016-11-16] MEDS: QUEtiapine FUMARATE 300 MG TAB PO SCH (21:11)
[2016-11-16] MEDS: GABAPENTIN 300 MG CAP PO SCH (21:11)
[2016-11-16] MEDS: buPROPion HCL 150 MG SUSTAINED RELEASE TAB PO SCH (21:11)
[2016-11-17 05:40] VITALS: BP 118/64; PULSE 75; RESP 18; TEMP 97.8; O2SAT 95
[2016-11-17] MEDS: LEVOTHYROXINE SODIUM 100 MCG TAB PO SCH (06:27)
[2016-11-17] MEDS: LISINOPRIL 20 MG TAB PO SCH (08:25)
[2016-11-17] MEDS: ACYCLOVIR 200 MG CAP PO SCH ×2 (08:25→21:20)
[2016-11-17] MEDS: buPROPion HCL 150 MG SUSTAINED RELEASE TAB PO SCH ×2 (08:25→21:20)
[2016-11-17] MEDS: GABAPENTIN 300 MG CAP PO SCH ×2 (08:25→21:20)
[2016-11-17] MEDS: FERROUS FUMARATE 325 MG TAB (106 MG ELEMENTAL IRON) PO SCH ×2 (08:25→17:19)
[2016-11-17] MEDS: PANTOPRAZOLE SOD 20 MG DELAYED RELEASE TAB PO SCH ×2 (08:25→21:20)
--- NOTE | 2016-11-17 11:44 | HHI.PYPN ---
Subjective Remarks Patient was seen and case discussed with nursing. This is a request for second opinion. Patient describes a long history of mood disorder and suicidal ideation for the past couple of weeks. Stressors include cocaine use and unhealthy relationships. Patient remains hopeless and has fleeting suicidal thoughts no intent or plan. Flat affect. Says that before admission her plan was to overdose on her friend sleeping pills or use her friend's gun. Nursing notes patient was wobbly on her feet this morning and oversedated this morning. Medication review shows Risperdal and Seroquel, we will DC Risperdal at this time Objective Alert: Yes [place]: Person (ox4), Place Mood: Anxious, Depressed Affect: Blunted, Other (angry) Memory Intact: Comment (no impairmetn) Hallucinations: Other (Negative) Delusions: No Delusion Type: Other Suicidal: Ideation (fleeting) Homicidal: Ideation (negative) Insight/Judgment Poor Vitals/IOs Vital Signs Date Time Temp Pulse Resp B/P Pulse Ox O2 Delivery O2 Flow Rate FiO2 11/17/16 05:40 97.8 75 18 118/64 95 11/15/16 14:53 Room Air Assessment & Plan Problem List: (1) Schizoaffective disorder, bipolar type ICD Code: F25.0 (2) Cocaine abuse ICD Code: F14.10 Assessment & Plan I agree with first opinion to continue petition. Criteria include suicidal ideation Justification for Cont. Inpt. Patient will decompensate in a less restrictive setting Request HC Surrog/Guard Advoc?: No Von Dowell DO Nov 17, 2016 11:44
[2016-11-17 18:47] VITALS: BP 93/54; PULSE 85; RESP 18; TEMP 98.1; O2SAT 98
[2016-11-17] MEDS: hydrOXYzine HCL 50 MG TAB PO PRN (20:39)
[2016-11-17] MEDS: diphenhydrAMINE HCL 50 MG CAP PO PRN (20:39)
[2016-11-17] MEDS: QUEtiapine FUMARATE 300 MG TAB PO SCH (21:20)
[2016-11-18] MEDS: LEVOTHYROXINE SODIUM 100 MCG TAB PO SCH (05:26)
[2016-11-18 06:21] VITALS: BP 102/56; PULSE 68; RESP 18; TEMP 97.1; O2SAT 95
[2016-11-18] MEDS: ACYCLOVIR 200 MG CAP PO SCH ×2 (08:57→21:01)
[2016-11-18] MEDS: buPROPion HCL 150 MG SUSTAINED RELEASE TAB PO SCH ×2 (08:57→21:02)
[2016-11-18] MEDS: PANTOPRAZOLE SOD 20 MG DELAYED RELEASE TAB PO SCH ×2 (08:57→21:02)
[2016-11-18] MEDS: FERROUS FUMARATE 325 MG TAB (106 MG ELEMENTAL IRON) PO SCH ×2 (08:57→17:57)
[2016-11-18] MEDS: GABAPENTIN 300 MG CAP PO SCH ×2 (08:57→21:02)
[2016-11-18] MEDS: LISINOPRIL 20 MG TAB PO SCH (09:00)
--- NOTE | 2016-11-18 14:50 | HHI.PYPN ---
Subjective Remarks Patient was seen and case discussed with nursing. Blood pressure remains low in the mornings. We will get a set of orthostatics. However she is less sedated in the mornings than yesterday since the discontinuation of Risperdal. Remains seclusive to room. Feeling "a little better." Affect appears is constricted. Describes paranoia that somebody is watching her could not tell me who or why. Auditory hallucinations are "going down." Also telling her to herself by putting her head in the toilet. She denies any intent of doing so Objective Alert: Yes [place]: Person (ox4), Place Mood: Other ("little better") Affect: Blunted Memory Intact: Comment (no impairmetn) Hallucinations: Auditory (to put her head in the toilet) Delusions: No Delusion Type: Other Suicidal: Ideation (denies) Homicidal: Ideation (negative) Insight/Judgment Poor Vitals/IOs Vital Signs Date Time Temp Pulse Resp B/P Pulse Ox O2 Delivery O2 Flow Rate FiO2 11/18/16 06:21 97.1 68 18 102/56 95 11/15/16 14:53 Room Air Assessment & Plan Problem List: (1) Schizoaffective disorder, bipolar type ICD Code: F25.0 (2) Cocaine abuse ICD Code: F14.10 Assessment & Plan Continue current treatment plan Justification for Cont. Inpt. Patient would decompensate in a less restrictive setting Request HC Surrog/Guard Advoc?: No Von Dowell DO Nov 18, 2016 14:50
[2016-11-18 15:35] VITALS: BP 115/54; PULSE 69; RESP 18; TEMP 97.4
[2016-11-18 15:36] VITALS: BP 107/66; PULSE 71; RESP 18; TEMP 97.4; O2SAT 97
[2016-11-18 15:37] VITALS: BP 114/73; PULSE 79; RESP 18; TEMP 97.4; O2SAT 98
[2016-11-18 17:32] LABS: CREATINE KINASE 68 U/L (26-192)
--- NOTE | 2016-11-18 17:50 | PD.CONS ---
[facility] [place] [place] [facility] By [facility]iatry team Reason for Consult Complaints of chest pain Primary Care Physician No Primary Care Physician Diagnoses: History of Present Illness Written by Willow Valdivia, acting as scribe for Dr. Navas on 11/18/16 at 17: 36. Patient is a 46-year-old female with primary medical history of iron deficiency anemia, hypothyroidism, genital herpes, hypertension, substance abuse who came into the hospital status post slip and fall impacting her right hip. Per review of records, patient has secondary complaint of suicidal ideation, states she wants to go to her neighbors gun to shoot herself or take a bunch of pills. In the ED she was evaluated for Thelma knee and ankle rules did not meet criteria for imaging and she had no hip tenderness and she has been ambulatory. She has been cleared to be transferred to inpatient psychiatry unit for further evaluation. Consulted today for complaints of chest pain. Patient seen and examined today. Reports having chest pain that lasted 20 minutes, intermittent pain, sharp, stabbing, not aggravated with any activities , no associated diaphoresis, nausea, vomiting. States that chest pain got relieved after EKG was done. Reports she is a lot of stress lately. Denies any heart problems. Reports cocaine use, where in last use was 6 days ago. On exam, denies pain and discomfort. Denies SOB/ dyspnea. Denies chest pain, palpitations, headaches, dizziness. Denies fevers, chills, n/v/d. Denies dysuria. As per RN, the patient complains of having chest pain they put her to bed and told her to lay down and just relax when patient heard that snacks are being given outside she jumped off the bed and went outside to get her snacks and forgot she has chest pain. Review of Systems Except as stated in HPI: all other systems reviewed are Neg Past Family Social History Allergies: Coded Allergies: Trazodone (Unverified Allergy, Severe, Nausea/Vomiting, 09/17/16) Haldol (Verified Adverse Reaction, Intermediate, Twitching, 09/17/16) Past Medical History Arthritis GERD Hypothyroidism Genital herpes HTN History of seizure from alcohol withdrawal Past Surgical History 4 Reported Medications Reported Meds & Active Scripts Active Risperdal M-Tab (Risperidone) 1 Mg Tab 2 Mg PO HS Quetiapine (Quetiapine Fumarate) 300 Mg Tab 300 Mg PO HS Lisinopril 20 Mg Tab 20 Mg PO DAILY Synthroid (Levothyroxine Sodium) 100 Mcg Tab 100 Mcg PO DAILY@0600 Wellbutrin SR 12 HR (Bupropion HCl) 150 Mg Tab 150 Mg PO BID Proair Hfa 8.5 GM Inh (Albuterol Sulfate) 90 Mcg/Act Aer 2 Puff INH Q4-6H PRN 108 mcg/actuation Reported Gabapentin 300 Mg Cap 300 Mg PO BID Meloxicam 7.5 Mg Tab Unknown Dose PO DAILY Omeprazole 20 Mg Tab 20 Mg PO BID Ferrous Fumarate 324 Mg Tab 325 Mg PO BIDPC Acyclovir 400 Mg Tab 400 Mg PO BID Vistaril (Hydroxyzine Pamoate) 50 Mg Cap 50 Mg PO BID Active Ordered Medications Current Medications Medications (Trade) Dose Ordered Sig/Symone Route Start Time Stop Time Status Last Admin (Benadryl) 50 mg HS PRN PO 11/16/16 11:45 11/17/16 20:39 (Tylenol) 650 mg Q4H PRN PO 11/16/16 11:45 (Atarax) 50 mg Q6H PRN PO 11/16/16 11:45 11/17/16 20:39 (Zovirax) 400 mg BID PO 11/16/16 21:00 11/18/16 08:57 (Ventolin Hfa Inh) 2 puff Q4HR PRN INH 11/16/16 11:45 (Wellbutrin Sr) 150 mg BID PO 11/16/16 21:00 11/18/16 08:57 (Hemocyte) 325 mg BIDPC PO 11/16/16 18:00 11/18/16 08:57 (Neurontin) 300 mg BID PO 11/16/16 21:00 11/18/16 08:57 (Synthroid) 100 mcg DAILY@0600 PO 11/17/16 06:00 11/18/16 05:26 (Prinivil) 20 mg DAILY PO 11/17/16 09:00 Hold 11/17/16 08:25 (SEROquel) 300 mg HS PO 11/16/16 21:00 11/17/16 21:20 (Protonix) 20 mg BID PO 11/16/16 21:00 11/18/16 08:57 Family History Mother has hypertension, diabetes Father has cancer Social History Reports alcohol use about 3 times per week Occasional tobacco use Reports cocaine use last used 6 days ago Physical Exam Vital Signs Vital Signs Date Time Temp Pulse Resp B/P Pulse Ox O2 Delivery O2 Flow Rate FiO2 11/18/16 15:37 97.4 79 18 114/73 98 11/18/16 15:36 97.4 71 18 107/66 97 11/18/16 15:35 97.4 69 18 115/54 11/18/16 06:21 97.1 68 18 102/56 95 11/17/16 18:47 98.1 85 18 93/54 98 Physical Exam GENERAL: This is an obese, well-developed patient, in no apparent distress. SKIN: No rashes, ecchymoses or lesions. Cool and dry. HEAD: Normocephalic. EYES: Pupils equal round and reactive. Extraocular motions intact. No scleral icterus. No injection or drainage. ENT: Nose without bleeding. Throat without erythema. Airway patent. NECK: Trachea midline. No JVD or lymphadenopathy. Supple, nontender, no meningeal signs. CARDIOVASCULAR: Regular rate and rhythm without murmurs, gallops, or rubs. Mild chest wall tenderness RESPIRATORY: Clear to auscultation. Breath sounds equal bilaterally. No wheezes , rales, or rhonchi. GASTROINTESTINAL: Abdomen soft, non-tender, nondistended. Positive subjective 4 MUSCULOSKELETAL: Extremities without clubbing, cyanosis, or edema. NEUROLOGICAL: Awake and alert. No focal neuro deficit. Motor and sensory grossly within normal limits. Normal speech. Laboratory Laboratory Tests Test 11/18/16 16:08 Total Creatine Kinase 68 Troponin I LESS THAN 0.02 Result Diagram: 11/14/16 1830 11/16/16 0834 Imaging EKG tracing interpreted by me with sinus rhythm with no acute ST-T changes Last Impressions Chest X-Ray 11/18/16 0000 Signed Impressions: Service Date/Time: Friday, November 18, 2016 16:58 - CONCLUSION: No acute cardiopulmonary disease. Pancho Saleh MD Assessment and Plan Problem List: (1) Cocaine abuse ICD Code: F14.10 Status: Acute (2) Schizoaffective disorder, bipolar type ICD Code: F25.0 Status: Acute (3) Substance induced mood disorder ICD Code: F19.94 Status: Acute (4) Suicidal ideation ICD Code: R45.851 Status: Acute Assessment and Plan Patient is a 46-year-old female with primary medical history of iron deficiency anemia, hypothyroidism, genital herpes, hypertension, substance abuse who came into the hospital status post slip and fall impacting her right hip. Per review of records, patient has secondary complaint of suicidal ideation, states she wants to go to her neighbors gun to shoot herself or take a bunch of pills. Recital ED duration, schizoaffective disorder, substance induced mood disorder - Managed by psychiatry team Chest pain, atypical - Reproducible by palpation, possibly musculoskeletal - Serial EKG, serial troponins, serial CK follow-up results - Chest x-ray follow-up results - EKG reviewed by ma sinus rhythm, heart rate [address] changes noted - Troponin less than 0.02, CK 68 - BP trend reviewed, no hypertension noted, SBP's remained 100s to 115s HTN - Previously on home medication lisinopril 20mg daily but was on hold secondary to SBP in the 100 - Continue to monitor BP trend - Check lipid profile Hypothyroidism - Continue with levothyroxine - Recent TSH within normal 1.25 Substance abuse Cocaine abuse - Counseled. Discussed with patient adverse effects of substance abuse to her heart, discuss risk factors including but not limited to . Verbalized understanding DVT prop ambulatory Thank you for this consultation. We will follow patient with you. Code Status Full code Discussed Condition With Discussed with patient, nursing This note was transcribed by zahida Valdivia. I, Dr. Pablito Navas personally performed the history, physical exam, and medical decision making; and confirmed the accuracy of the information in the transcribed note. Authenticated by Dr. Pablito Navas on 11/18/16 at 17:36 Willow Avila Nov 18, 2016 17:50 Pablito Navas MD Nov 18, 2016 19:01
--- NOTE | 2016-11-18 18:17 | RADRPT ---
EXAM DATE/TIME: 11/18/2016 16:58 [facility] COMPARISON: CHEST SINGLE AP, May 21, 2016, 13:53. INDICATIONS : Chest pain. MEDICAL HISTORY : bronchitis, pneumonia SURGICAL HISTORY : None. ENCOUNTER: Initial ACUITY: 1 day PAIN SCORE: 4/10 LOCATION: Bilateral chest FINDINGS: The lungs are clear without infiltrate, nodule, or mass. There is no appreciable pleural effusion fo r technique. Heart and mediastinum are unremarkable. CONCLUSION: No acute cardiopulmonary disease. Pancho Saleh MD on November 18, 2016 at 18:14 Board Certified Radiologist. This report was verified electronically.
[2016-11-18] MEDS: diphenhydrAMINE HCL 50 MG CAP PO PRN (21:02)
[2016-11-18] MEDS: QUEtiapine FUMARATE 300 MG TAB PO SCH (21:02)
[2016-11-19] MEDS: LEVOTHYROXINE SODIUM 100 MCG TAB PO SCH (05:46)
[2016-11-19 06:07] VITALS: BP 95/49; PULSE 64; RESP 17; TEMP 97.9; O2SAT 97
[2016-11-19] MEDS: buPROPion HCL 150 MG SUSTAINED RELEASE TAB PO SCH ×2 (08:33→20:01)
[2016-11-19] MEDS: FERROUS FUMARATE 325 MG TAB (106 MG ELEMENTAL IRON) PO SCH ×2 (08:33→18:00)
[2016-11-19] MEDS: GABAPENTIN 300 MG CAP PO SCH ×2 (08:34→20:02)
[2016-11-19] MEDS: PANTOPRAZOLE SOD 20 MG DELAYED RELEASE TAB PO SCH ×2 (08:34→20:01)
[2016-11-19] MEDS: ACYCLOVIR 200 MG CAP PO SCH ×2 (08:34→20:01)
--- NOTE | 2016-11-19 13:32 | HHI.PYPN ---
Subjective Remarks Patient seen in [place] with Dr. Gregorio. Chart reviewed. Patient compliant medication. It appears patient showing some contradictory statements now about placement issues. Appears patient stated to staff that she does not want to go to [place] because her sister would want to go into a rehabilitation program. Also appears patient does have funding. I am beginning to question patient's motivation for these ambiguities. We'll continue observe consider discharge within 1-2 days Review of Systems Except as stated in HPI: all other systems reviewed are Neg Objective Alert: Yes Rulo: Person (ox4), Place Mood: Other ("little better") Affect: Blunted Memory Intact: Comment (no impairmetn) Hallucinations: Auditory (to put her head in the toilet) Delusions: No Delusion Type: Other Suicidal: Ideation (denies) Homicidal: Ideation (negative) Insight/Judgment Poor Labs Test 11/18/16 16:08 Total Creatine Kinase 68 U/L Troponin I LESS THAN 0.02 NG/ML Vitals/IOs Vital Signs Date Time Temp Pulse Resp B/P Pulse Ox O2 Delivery O2 Flow Rate FiO2 11/19/16 06:07 97.9 64 17 95/49 97 11/15/16 14:53 Room Air Assessment & Plan Problem List: (1) Schizoaffective disorder, bipolar type ICD Code: F25.0 (2) Cocaine abuse ICD Code: F14.10 Assessment & Plan Estimated LOS: days patient continues to vacillate about placement issues. She does have funding to find placement locally. Consider discharge 1-2 days Justification for Cont. Inpt. At this time patient will decompensate if not placed in an appropriate level of care Request HC Surrog/Guard Advoc?: No Krzysztof Tello MD Nov 19, 2016 13:31
--- NOTE | 2016-11-19 15:14 | PD.TTN ---
Present for Treatment Team Treatment Team Staff: Provider (Dr. Tello), Nurse (Angela), Psych Therapist (Dmitry), Occupational Therapist (Jackelin) Patient Problems 1. Discharge planning 2. Medication compliance 3. Knowledge deficit 4. Lack of coping skills Progress Toward Goals Provider Input: "We can hang on to her for a few more days." Nurse Input: Incongruent mood and affect. Pt reports suicidal ideations; however, observed pleasant and friendly on the unit. Psych Therapist Input: Pt reports, "I'm starting to feel better but my mood isn't there yet." Pt further reports increased anxiety "at times throughout the day I feel way up or way down." Pt denies suicidal ideations, plans or intent. Pt reports being [place] to [place] [facility] [place] mood stabilizes. Dmitry Thomas Jr, LINE OUT WORKER Nov 19, 2016 15:14
--- NOTE | 2016-11-19 16:21 | HHI.PR ---
Subjective Remarks Follow-up visit chest pain, hypothyroidism, HTN. Patient seen and examined today. Reports not having any chest pains anymore. Denies any acute complaints. Denies any headaches, palpitations, dizziness. Denies any shortness of breath, cough, dyspnea. Denies nausea vomiting diarrhea. Objective Vitals Vital Signs Date Time Temp Pulse Resp B/P Pulse Ox O2 Delivery O2 Flow Rate FiO2 11/19/16 06:07 97.9 64 17 95/49 97 Result Diagram: 11/16/16 0834 Imaging Last Impressions Chest X-Ray 11/18/16 0000 Signed Impressions: Service Date/Time: Friday, November 18, 2016 16:58 - CONCLUSION: No acute cardiopulmonary disease. Pancho Saleh MD Objective Remarks GENERAL: This is an obese, well-developed patient, in no apparent distress. SKIN: Warm and dry HEENT: Normocephalic. Pupils equal round and reactive. Nose without bleeding. Airway patent. Facial birthmark left side. NECK: Trachea midline. No JVD. Supple. CARDIOVASCULAR: Regular rate and rhythm without murmurs, gallops, or rubs. No chest wall tenderness. RESPIRATORY: Clear to auscultation. Breath sounds equal bilaterally. No wheezes , rales, or rhonchi. GASTROINTESTINAL: Abdomen soft, non-tender, nondistended. Bowel Sounds normoactive x4. MUSCULOSKELETAL: Extremities without clubbing, cyanosis, or edema. NEUROLOGICAL: Awake and alert. No focal neuro deficit. Moves all extremities. Normal speech. A/P Problem List: (1) Cocaine abuse ICD Code: F14.10 Status: Acute (2) Schizoaffective disorder, bipolar type ICD Code: F25.0 Status: Acute (3) Substance induced mood disorder ICD Code: F19.94 Status: Acute (4) Suicidal ideation ICD Code: R45.851 Status: Acute Assessment and Plan Patient is a 46-year-old female with primary medical history of iron deficiency anemia, hypothyroidism, genital herpes, hypertension, substance abuse who came into the hospital status post slip and fall impacting her right hip. Per review of records, patient has secondary complaint of suicidal ideation, states she wants to go to her neighbors gun to shoot herself or take a bunch of pills. Recital ED duration, schizoaffective disorder, substance induced mood disorder - Managed by psychiatry team Chest pain, atypical - Reproducible by palpation, possibly musculoskeletal - Chest x-ray follow-up results - EKG reviewed by me sinus rhythm, heart rate [address] changes noted - Troponin less than 0.02, CK 68 - BP trend reviewed, no hypertension noted - Denies any chest pain HTN - Previously on home medication lisinopril 20mg daily but was on hold secondary to SBP in the 100 - Continue to monitor BP trend - Lipid profile within normal Hypothyroidism - Continue with levothyroxine - Recent TSH within normal 1.25 NANDINI, on CKD - 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 Discussed with patient adverse effects of substance abuse to her heart, discuss risk factors including but not limited to . Verbalized understanding DVT prop ambulatory Full code Discussed with patient, nursing, Dr. Yosef Cole from Hospitalist standpoint. We will sign off. Reconsult as needed. Willow Avila Nov 19, 2016 16:20
[2016-11-19 17:14] VITALS: BP 128/70; PULSE 76; RESP 18; TEMP 98.5; O2SAT 95
--- NOTE | 2016-11-19 19:55 | EKG ---
Date Performed: 11/18/2016 Time Performed: 15:30:22 PTAGE: 46 years EKG: Sinus rhythm NORMAL ECG PREVIOUS TRACING : 05/18/2013 09.12 Since previous tracing, no significant change noted DOCTOR: Gabriela Torre Interpretating Date/Time 11/19/2016 19:54:56
[2016-11-19] MEDS: QUEtiapine FUMARATE 300 MG TAB PO SCH (20:01)
[2016-11-19] MEDS: diphenhydrAMINE HCL 50 MG CAP PO PRN (20:02)
[2016-11-19] MEDS: hydrOXYzine HCL 50 MG TAB PO PRN (20:02)
[2016-11-20] MEDS: LEVOTHYROXINE SODIUM 100 MCG TAB PO SCH (06:08)
[2016-11-20 06:20] VITALS: BP 113/55; PULSE 68; RESP 16; TEMP 97.5; O2SAT 99
[2016-11-20] MEDS: FERROUS FUMARATE 325 MG TAB (106 MG ELEMENTAL IRON) PO SCH ×2 (08:47→18:29)
[2016-11-20] MEDS: GABAPENTIN 300 MG CAP PO SCH ×2 (08:47→21:15)
[2016-11-20] MEDS: ACYCLOVIR 200 MG CAP PO SCH ×2 (08:47→21:15)
[2016-11-20] MEDS: buPROPion HCL 150 MG SUSTAINED RELEASE TAB PO SCH ×2 (08:47→21:15)
[2016-11-20] MEDS: PANTOPRAZOLE SOD 20 MG DELAYED RELEASE TAB PO SCH ×2 (08:48→21:15)
[2016-11-20 08:59] LABS: CREATINE KINASE 64 U/L (26-192)
--- NOTE | 2016-11-20 13:12 | HHI.PYPN ---
Subjective Remarks Patient seen in [place] with nurse Rose, counselor Kristine. Patient chart review, patient compliant medication. Patient today again agreed that she wishes to go to [place] to be with her sister and to look into rehabilitation program. She is adamant about that. Like to get it done as soon as possible. We will have counseled call patient's sister to verify her willingness to accept patient and attempt to get a bus ticket for her move next 24 hours. Continue treatment otherwise no change Review of Systems Except as stated in HPI: all other systems reviewed are Neg Objective Alert: Yes Kathleen: Person (ox4), Place Mood: Other ("little better") Affect: Blunted Memory Intact: Comment (no impairmetn) Hallucinations: Auditory (to put her head in the toilet) Delusions: No Delusion Type: Other Suicidal: Ideation (denies) Homicidal: Ideation (negative) Insight/Judgment Poor Labs Test 11/20/16 07:50 Total Creatine Kinase 64 U/L Troponin I LESS THAN 0.02 NG/ML Vitals/IOs Vital Signs Date Time Temp Pulse Resp B/P Pulse Ox O2 Delivery O2 Flow Rate FiO2 11/20/16 06:20 97.5 68 16 113/55 99 Assessment & Plan Problem List: (1) Schizoaffective disorder, bipolar type ICD Code: F25.0 (2) Cocaine abuse ICD Code: F14.10 Assessment & Plan Estimated LOS: days patient showing somewhat improved mood. Showing some more willingness to participate in discharge plans. Is willing to go to [place] to be near her sister and to work with her rehabilitation program. We are attempting at this arrange the next 24 hours Justification for Cont. Inpt. At this time patient may decompensate if not placed in an appropriate level of care Discharge Planning To be determined Request HC Surrog/Guard Advoc?: No Krzysztof Tello MD Nov 20, 2016 13:12
[2016-11-20] MEDS ORDERED: ACYC400T PO (13:50)
[2016-11-20] MEDS ORDERED: LISI-515 PO (13:51)
[2016-11-20] MEDS ORDERED: NEUR300C PO (13:51)
[2016-11-20] MEDS ORDERED: HEMO324T PO (13:51)
[2016-11-20] MEDS ORDERED: BUPR150CR PO (13:51)
[2016-11-20] MEDS ORDERED: QUET1TAB10 PO (13:51)
[2016-11-20] MEDS ORDERED: LEVO.1 PO (13:51)
[2016-11-20] MEDS ORDERED: PANT20 PO (13:51)
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
[2016-11-20 18:00] VITALS: BP 104/74; PULSE 75; RESP 16; TEMP 97.6; O2SAT 100
[2016-11-20] MEDS: hydrOXYzine HCL 50 MG TAB PO PRN (18:42)
[2016-11-20] MEDS: QUEtiapine FUMARATE 300 MG TAB PO SCH ×3 (21:00→21:20)
[2016-11-20] MEDS: diphenhydrAMINE HCL 50 MG CAP PO PRN (22:15)
[2016-11-21] MEDS: LEVOTHYROXINE SODIUM 100 MCG TAB PO SCH (04:08)
[2016-11-21 05:37] VITALS: BP 132/76; PULSE 69; RESP 18; TEMP 98.3; O2SAT 97
== END 2016-11-21 05:45 | disposition home or self-care (01) | DRG 885 ==
LOC: NEPJ 16:30 → NEDA 11-15 14:40 → H260 11-15 15:32
PROVIDERS: ADMIT Psychiatry & Neurology Psychiatry; ATTEND Psychiatry & Neurology Psychiatry
DX: F25.0 Schizoaffective disorder, bipolar type (principal); N17.9 Acute kidney failure, unspecified; R45.851 Suicidal ideations; Z68.41 Body mass index [BMI] 40.0-44.9, adult; E66.01 Morbid (severe) obesity due to excess calories; E03.9 Hypothyroidism, unspecified; M19.90 Unspecified osteoarthritis, unspecified site; F14.14 Cocaine abuse with cocaine-induced mood disorder; A60.00 Herpesviral infection of urogenital system, unspecified; F31.9 Bipolar disorder, unspecified; R07.89 Other chest pain; F41.9 Anxiety disorder, unspecified; K21.9 Gastro-esophageal reflux disease without esophagitis; F17.210 Nicotine dependence, cigarettes, uncomplicated; I12.9 Hypertensive chronic kidney disease with stage 1 through stage 4 chronic kidney disease, or unspecified chronic kidney disease; N18.9 Chronic kidney disease, unspecified; M25.551 Pain in right hip; M25.561 Pain in right knee; Z91.5 Personal history of self-harm; Z91.19 Patient's noncompliance with other medical treatment and regimen
CPT/HCPCS: 71010; 80048; 80053; 80061; 80307; 82550; 83036; 84443; 84484; 85025; 93005; 99285; Q0163

== ENCOUNTER 2017-01-11 02:31 | Inpatient (IN) | payer MEDICAID, OTHER ==
[~2017-01-11] VITALS: Ht 157.5 cm; Wt 106.2 kg
[~2017-01-11 02:31] MED LIST changes: +ACYC400T PO; -FAMO20TA2 PO; -FERR325T PO; -FOLI1TAB4 PO; +HEMO324T PO; +MELO7.5T4 PO; +NEUR300C PO; +PANT20 PO; -TRAM50TA PO; -VITA100T2 PO
[2017-01-11] MEDS ORDERED: OLANZapine IM 10 MG VIAL IM ONE (02:45)
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
[2017-01-11 03:15] VITALS: BP 219/109; PULSE 89; RESP 16; TEMP 97.7; O2SAT 99
[2017-01-11 03:53] LABS: AUTOMATED NEUTROPHIL # 2.8 TH/MM3 (1.8-7.7); BASOPHIL # 0.1 TH/MM3 (0-0.2); BASOPHIL % 1.2 % (0.0-2.0); EOSINOPHIL % 0.7 % (0.0-4.0); HEMATOCRIT 32.1 % (35.0-46.0); HEMO FLAGS DIFF FINAL; LYMPH % 28.7 % (9.0-44.0); LYMPHOCYTE # 1.3 TH/MM3 (1.0-4.8); MEAN CELL VOLUME 86.9 FL (80.0-100.0); MEAN CORPUSCULAR HEMOGLOBIN 28.2 PG (27.0-34.0); MEAN CORPUSCULAR HGB CONC 32.5 % (32.0-36.0); MONO % 6.3 % (0.0-8.0); NEUT % 63.1 % (16.0-70.0); PLATELET COUNT 363 TH/MM3 (150-450); RED BLOOD COUNT 3.69 MIL/MM3 (4.00-5.30); RED CELL DISTRIBUTION WIDTH 14.3 % (11.6-17.2); WHITE BLOOD COUNT 4.5 TH/MM3 (4.0-11.0)
[2017-01-11 04:12] LABS: POTASSIUM 3.5 MEQ/L (3.5-5.1)
[2017-01-11] MEDS ORDERED: amLODIPine BESYLATE 5 MG TAB PO ONE (04:45)
[2017-01-11 04:49] VITALS: BP 194/97; PULSE 80; RESP 16; O2SAT 98
[2017-01-11] MEDS ORDERED: NAPR500T PO (05:19)
[2017-01-11 06:33] VITALS: BP 177/95; PULSE 89; RESP 18; O2SAT 97
[2017-01-11 09:53] VITALS: BP 149/68; PULSE 81; RESP 18
[2017-01-11 16:47] VITALS: BP 144/76; PULSE 78; RESP 18
[2017-01-11] MEDS ORDERED: ALBUTEROL SULFATE 90 MCG/ACT HFA 8 GM INHALER INH PRN (17:00)
[2017-01-11] MEDS ORDERED: diphenhydrAMINE HCL 50 MG CAP PO PRN (17:15)
[2017-01-11] MEDS ORDERED: diphenhydrAMINE HCL 50 MG/ML VIAL IM PRN (17:15)
[2017-01-11] MEDS ORDERED: ALUMINUM/MAGNESIUM/SIMETH 30 ML CUP PO PRN (17:30)
[2017-01-11] MEDS ORDERED: MAGNESIUM HYDROXIDE SUSP 30 ML CUP PO PRN (17:30)
[2017-01-11] MEDS: FERROUS FUMARATE 325 MG TAB (106 MG ELEMENTAL IRON) PO SCH ×2 (21:00→23:38)
[2017-01-11] MEDS: ACYCLOVIR 200 MG CAP PO SCH (21:00)
[2017-01-11] MEDS: NAPROXEN 500 MG TAB PO SCH (21:00)
[2017-01-11] MEDS: QUEtiapine FUMARATE 300 MG TAB PO SCH (21:52)
[2017-01-11] MEDS: buPROPion HCL 150 MG SUSTAINED RELEASE TAB PO SCH (21:52)
[2017-01-11 21:53] VITALS: BP 162/93; PULSE 73; RESP 17; TEMP 98.2; O2SAT 97
[2017-01-11] MEDS: PANTOPRAZOLE SOD 20 MG DELAYED RELEASE TAB PO SCH (21:53)
[2017-01-11] MEDS: GABAPENTIN 300 MG CAP PO SCH (21:53)
[2017-01-11] MEDS: risperiDONE ODT 2 MG TAB PO SCH (21:54)
[2017-01-12 06:41] VITALS: BP 132/75; PULSE 82; RESP 16; TEMP 98.4; O2SAT 97
[2017-01-12] MEDS ORDERED: hydrOXYzine HCL 50 MG TAB PO PRN (09:45)
[2017-01-12] MEDS ORDERED: MAGNESIUM HYDROXIDE SUSP 30 ML CUP PO PRN (09:45)
[2017-01-12] MEDS ORDERED: ALUMINUM/MAGNESIUM/SIMETH 30 ML CUP PO PRN (09:45)
[2017-01-12] MEDS ORDERED: ACETAMINOPHEN 325 MG TAB PO PRN (09:45)
[2017-01-12] MEDS: GABAPENTIN 300 MG CAP PO SCH ×2 (09:47→21:54)
[2017-01-12] MEDS: ACYCLOVIR 200 MG CAP PO SCH ×2 (09:47→21:54)
[2017-01-12] MEDS: risperiDONE ODT 2 MG TAB PO SCH (09:47)
[2017-01-12] MEDS: NAPROXEN 500 MG TAB PO SCH ×2 (09:47→21:58)
[2017-01-12] MEDS: PANTOPRAZOLE SOD 20 MG DELAYED RELEASE TAB PO SCH ×2 (09:48→21:58)
[2017-01-12] MEDS: LEVOTHYROXINE SODIUM 100 MCG TAB PO SCH (09:48)
[2017-01-12] MEDS: buPROPion HCL 150 MG SUSTAINED RELEASE TAB PO SCH ×2 (09:48→21:54)
[2017-01-12] MEDS: LISINOPRIL 20 MG TAB PO SCH (09:48)
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
[2017-01-12 11:15] VITALS: BP 132/70; PULSE 78; RESP 18; TEMP 97.6
[2017-01-12 12:52] LABS: ANION GAP 8 MEQ/L (5-15); BLOOD UREA NITROGEN 19 MG/DL (7-18); CHLORIDE 103 MEQ/L (98-107); GLOMERULAR FILTRATION RATE 50 ML/MIN (>89); POTASSIUM 3.8 MEQ/L (3.5-5.1); SODIUM (NA) 138 MEQ/L (136-145)
[2017-01-12 12:55] LABS: HDL CHOLESTEROL 52.9 MG/DL (40.0-60.0); LDL CHOLESTEROL 49 MG/DL (0-99)
--- NOTE | 2017-01-12 14:34 | PD.CONS ---
HPI Service [facility] Hospitalists Consult Requested By Dr. Tello Reason for Consult Evaluation and stabilization of hypertension Primary Care Physician No Primary Care Physician Diagnoses: (1) Hypertension (2) GERD (gastroesophageal reflux disease) (3) Hypothyroidism (4) Cocaine abuse (5) Schizoaffective disorder, bipolar type History of Present Illness The patient is a 46-year-old female currently admitted to inpatient psychiatry. She has reported medical history of hypothyroidism, hypertension, substance abuse. Hospitalist consultation was requested for management of hypertension. Patient denies any physical complaints at this time. She denies headache, vision changes, chest pain, dyspnea. Review of Systems Constitutional: DENIES: Fever, Chills, Night Sweats Eyes: DENIES: Blurred vision, Vision loss Ears, nose, mouth, throat: DENIES: Hearing loss Respiratory: DENIES: Cough, Wheezing, Sputum production, Shortness of breath Cardiovascular: DENIES: Chest pain, Palpitations, Dyspnea on Exertion, Lower Extremity Edema Gastrointestinal: DENIES: Abdominal pain, Constipation, Diarrhea, Nausea, Vomiting Genitourinary: DENIES: Urinary frequency, Urinary incontinence, Urgency, Hematuria, Dysuria, Nocturia Musculoskeletal: DENIES: Joint pain, Muscle aches Integumentary: DENIES: Pruritus, Rash Hematologic/lymphatic: DENIES: Bruising Neurologic: DENIES: Headache Past Family Social History Allergies: Coded Allergies: trazodone (Unverified Allergy, Severe, Nausea/Vomiting, 12/19/16) haloperidol (Unverified Adverse Reaction, Intermediate, Twitching, 12/19/16 ) Past Medical History Arthritis GERD Hypothyroidism Genital herpes HTN History of seizure from alcohol withdrawal Past Surgical History section 4 Reported Medications Quetiapine (Quetiapine Fumarate) 300 Mg Tab 300 Mg PO HS Protonix (Pantoprazole Sodium) 20 Mg Tab 20 Mg PO BID Lisinopril 20 Mg Tab 20 Mg PO DAILY Synthroid (Levothyroxine Sodium) 100 Mcg Tab 100 Mcg PO DAILY@0600 Neurontin (Gabapentin) 300 Mg Cap 300 Mg PO BID Hemocyte (Ferrous Fumarate) 324 Mg Tab 325 Mg PO BIDPC Wellbutrin SR 12 HR (Bupropion HCl) 150 Mg Tab 150 Mg PO BID Acyclovir 400 Mg Tab 400 Mg PO BID Risperdal M-Tab (Risperidone) 1 Mg Tab 2 Mg PO HS Proair Hfa 8.5 GM Inh (Albuterol Sulfate) 90 Mcg/Act Aer 2 Puff INH Q4-6H PRN 108 mcg/actuation Meloxicam 7.5 Mg Tab Unknown Dose PO DAILY Acyclovir 400 Mg Tab 400 Mg PO BID Vistaril (Hydroxyzine Pamoate) 50 Mg Cap 50 Mg PO BID Family History Gastrointestinal cancer Social History Smokes 4-5 cigarettes per day. Drinks a fifth of vodka daily. Admits to cocaine use 2 days ago. Physical Exam Vital Signs Vital Signs Date Time Temp Pulse Resp B/P (MAP) Pulse Ox O2 Delivery O2 Flow Rate FiO2 01/12/17 11:15 97.6 78 18 132/70 (90) 01/12/17 06:41 98.4 82 16 132/75 (94) 97 01/11/17 21:53 98.2 73 17 162/93 (116) 97 01/11/17 16:47 78 18 144/76 (98) Physical Exam GENERAL: Obese female in no acute distress. HEENT: Normocephalic, atraumatic. Pupils equal, round and reactive. Extraocular movements intact. No scleral icterus. No injection or drainage. Oropharynx is clear. Mucous membranes are moist. CARDIOVASCULAR: Regular rate and rhythm without murmurs, gallops, or rubs. RESPIRATORY: Clear to auscultation. No wheezes, rales, or rhonchi. Breathing is non-labored. GASTROINTESTINAL: Abdomen soft, non-tender, nondistended. EXTREMITIES: No lower extremity edema. No calf tenderness. PSYCH: Alert, answers questions appropriately. Laboratory Laboratory Tests Test 01/12/17 11:12 Blood Urea Nitrogen 19 Creatinine 1.36 Random Glucose 105 Calcium Level 8.9 Sodium Level 138 Potassium Level 3.8 Chloride Level 103 Carbon Dioxide Level 27.0 Anion Gap 8 Estimat Glomerular Filtration Rate 50 Triglycerides Level 260 Cholesterol Level 154 LDL Cholesterol 49 HDL Cholesterol 52.9 Cholesterol/HDL Ratio 2.91 Result Diagram: 01/11/17 0330 01/12/17 1112 Assessment and Plan Assessment and Plan 1. Psychosis: Management per psychiatry. 2. Hypertension: Continue lisinopril. Blood pressure control improved. 3. History of genital herpes: Continue acyclovir. 4. Hypothyroidism: Continue Synthroid. 5. GERD: Continue Protonix. Kalpesh Jiang MD Jan 12, 2017 14:34
[2017-01-12 15:05] LABS: HEMOGLOBIN A1b 0.7 %; HEMOGLOBIN Ao 85.2 %; HEMOGLOBIN F 1.2 %; HEMOGLOBIN LA1C 2.3 %; HEMOGLOBIN P3 3.6 %
[2017-01-12] MEDS ORDERED: FERROUS FUMARATE 325 MG TAB (106 MG ELEMENTAL IRON) PO SCH (18:00)
[2017-01-12 18:04] VITALS: BP 156/81; PULSE 82; RESP 18; TEMP 98.6; O2SAT 96
[2017-01-12] MEDS ORDERED: risperiDONE ODT 1 MG TAB PO SCH (21:00)
[2017-01-12] MEDS ORDERED: GABAPENTIN 300 MG CAP PO SCH (21:00)
[2017-01-12] MEDS ORDERED: ACYCLOVIR 200 MG CAP PO SCH (21:00)
[2017-01-12] MEDS ORDERED: NAPROXEN 500 MG TAB PO SCH (21:00)
[2017-01-12] MEDS ORDERED: buPROPion HCL 150 MG SUSTAINED RELEASE TAB PO SCH (21:00)
[2017-01-12] MEDS ORDERED: QUEtiapine FUMARATE 300 MG TAB PO SCH (21:00)
[2017-01-12] MEDS: FERROUS FUMARATE 325 MG TAB (106 MG ELEMENTAL IRON) PO SCH (21:54)
[2017-01-12] MEDS: QUEtiapine FUMARATE 300 MG TAB PO SCH (21:58)
[2017-01-13] MEDS: LEVOTHYROXINE SODIUM 100 MCG TAB PO SCH ×2 (06:32→08:49)
[2017-01-13 07:13] VITALS: BP 127/80; PULSE 79; RESP 17; TEMP 98.4; O2SAT 94
[2017-01-13 07:15] VITALS: BP 127/80; PULSE 79; RESP 17; TEMP 98.4; O2SAT 94
[2017-01-13] MEDS: PANTOPRAZOLE SOD 20 MG DELAYED RELEASE TAB PO SCH ×4 (08:47→21:28)
[2017-01-13] MEDS: risperiDONE ODT 2 MG TAB PO SCH ×2 (08:49→21:31)
[2017-01-13] MEDS: FERROUS FUMARATE 325 MG TAB (106 MG ELEMENTAL IRON) PO SCH ×2 (08:49→21:29)
[2017-01-13] MEDS: LISINOPRIL 20 MG TAB PO SCH (08:49)
[2017-01-13] MEDS: buPROPion HCL 150 MG SUSTAINED RELEASE TAB PO SCH ×2 (08:51→21:28)
[2017-01-13] MEDS: GABAPENTIN 300 MG CAP PO SCH ×2 (08:51→21:27)
[2017-01-13] MEDS: REMOVE OLD PATCH T-DERMAL SCH (09:00)
[2017-01-13] MEDS: NAPROXEN 500 MG TAB PO SCH ×2 (09:00→21:00)
[2017-01-13] MEDS ORDERED: LISINOPRIL 20 MG TAB PO SCH (09:00)
[2017-01-13] MEDS: ACYCLOVIR 200 MG CAP PO SCH ×2 (09:00→21:28)
[2017-01-13] MEDS: NICOTINE 21 MG/24 HR PATCH T-DERMAL SCH (09:00)
--- NOTE | 2017-01-13 09:31 | EKG ---
Date Performed: 01/12/2017 Time Performed: 11:29:21 PTAGE: 46 years EKG: Sinus rhythm Compared to prior tracing no significant change NORMAL ECG PREVIOUS TRACING : 11/18/2016 15.30 DOCTOR: Sal Arrieta Interpretating Date/Time 01/13/2017 09:29:46
[2017-01-13] MEDS ORDERED: OLANZapine IM 10 MG VIAL IM STA (10:24)
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
[2017-01-13 17:41] VITALS: BP 114/56; PULSE 80; RESP 17; TEMP 98.8; O2SAT 98
--- NOTE | 2017-01-13 18:40 | HHI.PR ---
Subjective Remarks Follow-up hypertension. Patient seen and evaluated in seclusion room as a behavioral event occurred earlier in the day. Patient denied chest pain, headache, she will disturbance. She stated she is taking her blood pressure medication as directed. Patient stated she was hearing voices and these were upsetting to her. Patient denied any other issues at this time. Objective Vitals Vital Signs Date Time Temp Pulse Resp B/P (MAP) Pulse Ox O2 Delivery O2 Flow Rate FiO2 01/13/17 17:41 98.8 80 17 114/56 (75) 98 01/13/17 07:15 98.4 79 17 127/80 (96) 94 01/13/17 07:13 98.4 79 17 127/80 (96) 94 I/O 01/12/17 01/12/17 01/12/17 01/13/17 01/13/17 01/13/17 07:00 15:00 23:00 07:00 15:00 23:00 Intake Total 480 ml Balance 480 ml Intake Oral 480 ml Result Diagram: 01/11/17 0330 01/12/17 1112 Objective Remarks GENERAL: Patient encountered laying face down on mattress in seclusion, mild emotional distress. SKIN: Warm and dry. HEAD: Normocephalic. EYES: No scleral icterus. No injection or drainage. NECK: Supple, trachea midline. No lymphadenopathy. CARDIOVASCULAR: Regular rate and rhythm without murmurs, gallops, or rubs. RESPIRATORY: Breath sounds equal bilaterally. No wheezes rhonchi or crackles. No accessory muscle use. GASTROINTESTINAL: Abdomen soft, non-tender, nondistended. MUSCULOSKELETAL: No cyanosis, or edema. PSYCHIATRIC: Affect flat, mood sad; insight and judgment adequate. Patient was pleasant and cooperative. Patient reporting auditory hallucinations yet was able to focus and attend to the interview. Medications and IVs Current Medications Medications (Trade) Dose Ordered Sig/Symone Route Start Time Stop Time Status Last Admin (Zovirax) 400 mg BID PO 01/11/17 21:00 01/13/17 09:00 (Proair Hfa Inh) 2 puff Q4H PRN INH 01/11/17 17:00 (Hemocyte) 325 mg BID PO 01/11/17 21:00 01/13/17 08:49 (Neurontin) 300 mg BID PO 01/11/17 21:00 01/13/17 08:51 (Vistaril) 50 mg BID PO 01/11/17 21:00 01/13/17 08:50 (Prinivil) 20 mg DAILY PO 01/12/17 09:00 01/13/17 08:49 (Naprosyn) 500 mg BID PO 01/11/17 21:00 01/13/17 09:00 (Protonix) 20 mg BID PO 01/11/17 21:00 01/13/17 09:00 (SEROquel) 300 mg HS PO 01/11/17 21:00 01/12/17 21:58 (Benadryl) 50 mg HS PRN PO 01/11/17 17:15 (Atarax) 50 mg Q6H PRN PO 01/11/17 17:30 (Tylenol) 650 mg Q4H PRN PO 01/11/17 17:30 (Milk Of Magnesia Liq) 30 ml DAILY PRN PO 01/11/17 17:30 (Mag-Al Plus Susp Liq) 30 ml Q6H PRN PO 01/11/17 17:30 (Wellbutrin Sr) 150 mg BID PO 01/11/17 21:00 01/13/17 08:51 (Habitrol 21 Mg Patch.24 Hr) 1 patch DAILY T-DERMAL 01/13/17 09:00 (Synthroid) 100 mcg DAILY@0600 PO 01/13/17 06:00 01/13/17 06:32 Miscellaneous Information 1 DAILY T-DERMAL 01/13/17 09:00 (risperDAL M-TAB) 3 mg BID PO 01/13/17 21:00 Urinary Catheter: No A/P Problem List: (1) Hypertension ICD Code: I10 - Essential (primary) hypertension (2) GERD (gastroesophageal reflux disease) ICD Code: K21.9 - Gastro-esophageal reflux disease without esophagitis (3) Hypothyroidism ICD Code: E03.9 - Hypothyroidism, unspecified (4) Cocaine abuse ICD Code: F14.10 - Cocaine abuse, uncomplicated Status: Acute (5) Schizoaffective disorder, bipolar type ICD Code: F25.0 - Schizoaffective disorder, bipolar type Status: Acute Assessment and Plan The patient is a 46-year-old female currently admitted to inpatient psychiatry. She has reported medical history of hypothyroidism, hypertension, substance abuse. Hospitalist consultation was requested for management of hypertension. Patient denies any physical complaints at this time. She denies headache, vision changes, chest pain, dyspnea. Schizoaffective disorder, bipolar type -As per psychiatry. Hypertension -Blood pressure stabilized at this time. -Continue current regimen. Hypothyroidism -Continue current Synthroid regimen -Patient to see PCP in 6-8 weeks for reevaluation. Patient is medically stable at this time. Hospitalist team will sign off at this time. Please please contact us for further questions or if other issues arise. Case discussed with patient and Drs. Jiang and Herb Pearce Jr. Jan 13, 2017 18:40
[2017-01-13] MEDS: QUEtiapine FUMARATE 300 MG TAB PO SCH (21:28)
[2017-01-14 05:54] VITALS: BP 198/95; PULSE 91; RESP 18; TEMP 97.9; O2SAT 98
[2017-01-14] MEDS: LEVOTHYROXINE SODIUM 100 MCG TAB PO SCH (06:04)
[2017-01-14] MEDS: REMOVE OLD PATCH T-DERMAL SCH (09:00)
[2017-01-14] MEDS: NAPROXEN 500 MG TAB PO SCH ×2 (09:00→21:00)
[2017-01-14] MEDS: NICOTINE 21 MG/24 HR PATCH T-DERMAL SCH (09:00)
[2017-01-14] MEDS: FERROUS FUMARATE 325 MG TAB (106 MG ELEMENTAL IRON) PO SCH ×2 (09:00→21:30)
[2017-01-14] MEDS: LISINOPRIL 20 MG TAB PO SCH (09:00)
[2017-01-14] MEDS: buPROPion HCL 150 MG SUSTAINED RELEASE TAB PO SCH ×2 (09:00→21:29)
[2017-01-14] MEDS: GABAPENTIN 300 MG CAP PO SCH ×2 (09:00→21:29)
[2017-01-14] MEDS: risperiDONE ODT 2 MG TAB PO SCH ×2 (09:00→21:30)
[2017-01-14] MEDS: PANTOPRAZOLE SOD 20 MG DELAYED RELEASE TAB PO SCH ×2 (09:00→21:29)
[2017-01-14] MEDS: ACYCLOVIR 200 MG CAP PO SCH ×2 (09:00→21:29)
--- NOTE | 2017-01-14 14:51 | HHI.PYPN ---
Subjective Remarks Patient was seen today for psychiatric reevaluation along with nursing charge, patient was calm, cooperative, but objectively depressed. Patient is found in her bed, lay down, is staring to the roof. She says that she feels very depressed, she says that she doesn't have a reason to live for. She has been having persistent suicidal thoughts, with a plan of jumping off a bridge. Patient contracted for safety in the unit. She also reports commanding-type auditory hallucinations, voices telling her to kill herself and making derogatory comments about her. Patient reports a modest decrease in intensity and frequency of voices. Patient is oriented 3, no attention deficit, no gross cognitive impairment present. Patient has been compliant with her medications, no significant side effects. In the 2700 units she has remained isolated, poorly participated in activities, but no agitation or aggressive behavior reported. Review of Systems Other No somatic complaints Objective Alert: Yes [place]: Person, Place, Date, Situation Mood: Depressed Affect: Restricted, Flat Memory Intact: Immediate, Recent, Remote Hallucinations: Auditory (commanding type) Delusions: No Delusion Type: Other (not elicited) Suicidal: Ideation (SI, plan of jumping off a bridge) Homicidal: Ideation (no HI) Insight/Judgment Poor Vitals/IOs Vital Signs Date Time Temp Pulse Resp B/P (MAP) Pulse Ox O2 Delivery O2 Flow Rate FiO2 01/14/17 05:54 97.9 91 18 198/95 (129) 98 01/11/17 09:53 Room Air Assessment & Plan Problem List: (1) Schizoaffective disorder, bipolar type ICD Codes: F25.0 - Schizoaffective disorder, bipolar type Status: Acute Assessment & Plan: Patient continues to endorse depression and perceptual disturbances. Medication recently increased yesterday. Today we'll continue current psychotropic regimen. Extensive support, motivation and psychoeducation provided. (2) Cocaine abuse ICD Codes: F14.10 - Cocaine abuse, uncomplicated Status: Acute (3) Alcohol abuse ICD Codes: F10.10 - Alcohol abuse, uncomplicated Assessment & Plan Estimated LOS: days Justification for Cont. Inpt. Patient continues to be psychotic/depressed, she needs to continue psychiatric hospitalization for stabilization Ronald Olsen MD Jan 14, 2017 14:51
[2017-01-14 17:20] VITALS: BP 122/69; PULSE 74; PULSE 82; RESP 17; TEMP 99.2; O2SAT 97
[2017-01-14] MEDS: QUEtiapine FUMARATE 300 MG TAB PO SCH (21:29)
[2017-01-15 05:58] VITALS: BP 153/79; PULSE 93; RESP 18; TEMP 97.9; O2SAT 97
[2017-01-15] MEDS: LEVOTHYROXINE SODIUM 100 MCG TAB PO SCH (06:07)
[2017-01-15] MEDS: REMOVE OLD PATCH T-DERMAL SCH (09:00)
[2017-01-15] MEDS: NICOTINE 21 MG/24 HR PATCH T-DERMAL SCH (09:00)
[2017-01-15] MEDS: FERROUS FUMARATE 325 MG TAB (106 MG ELEMENTAL IRON) PO SCH ×2 (09:00→21:09)
[2017-01-15] MEDS: NAPROXEN 500 MG TAB PO SCH ×2 (09:15→21:09)
[2017-01-15] MEDS: GABAPENTIN 300 MG CAP PO SCH ×2 (09:15→21:09)
[2017-01-15] MEDS: risperiDONE ODT 2 MG TAB PO SCH ×2 (09:16→21:10)
[2017-01-15] MEDS: LISINOPRIL 20 MG TAB PO SCH (09:16)
[2017-01-15] MEDS: PANTOPRAZOLE SOD 20 MG DELAYED RELEASE TAB PO SCH ×2 (09:16→21:09)
[2017-01-15] MEDS: buPROPion HCL 150 MG SUSTAINED RELEASE TAB PO SCH ×2 (09:17→21:09)
[2017-01-15] MEDS: ACYCLOVIR 200 MG CAP PO SCH ×2 (09:17→21:09)
--- NOTE | 2017-01-15 12:54 | HHI.PYPN ---
Subjective Remarks Patient seen in her room with nurse Cindy, chart review, patient compliant medication. Patient showing slight improvement in her affect. Though she still complains of suicidality vague voices. She is continuing to show a willingness to be referred to a new woman's correction, continues to show willingness for absolute sobriety and to discontinue seeing her old boyfriend. For now continue treatment Review of Systems Except as stated in HPI: all other systems reviewed are Neg Objective Alert: Yes [place]: Person, Place, Date, Situation Mood: Depressed Affect: Restricted, Flat Memory Intact: Immediate, Recent, Remote Hallucinations: Auditory (commanding type) Delusions: No Delusion Type: Other (not elicited) Suicidal: Ideation (SI, plan of jumping off a bridge) Homicidal: Ideation (no HI) Insight/Judgment Very poor Vitals/IOs Vital Signs Date Time Temp Pulse Resp B/P (MAP) Pulse Ox O2 Delivery O2 Flow Rate FiO2 01/15/17 05:58 97.9 93 18 153/79 (103) 97 01/11/17 09:53 Room Air Assessment & Plan Problem List: (1) Schizoaffective disorder, bipolar type ICD Codes: F25.0 - Schizoaffective disorder, bipolar type Status: Acute (2) Cocaine abuse ICD Codes: F14.10 - Cocaine abuse, uncomplicated Status: Acute (3) Alcohol abuse ICD Codes: F10.10 - Alcohol abuse, uncomplicated Assessment & Plan Estimated LOS: days patient continues somewhat depressed vague psychotic features and vague suicidality. Otherwise showing some increased focus and processing. For now continue treatment Justification for Cont. Inpt. At this time patient would decompensate the place to the lower level of care Discharge Planning To be determined Krzysztof Tello MD Jan 15, 2017 12:54
[2017-01-15 17:51] VITALS: BP 142/62; PULSE 72; RESP 18; TEMP 98.5
[2017-01-15] MEDS: QUEtiapine FUMARATE 300 MG TAB PO SCH (21:09)
[2017-01-16] MEDS: LEVOTHYROXINE SODIUM 100 MCG TAB PO SCH (06:04)
[2017-01-16 06:35] VITALS: BP 127/66; PULSE 82; RESP 16; TEMP 97.9; O2SAT 94
[2017-01-16] MEDS: GABAPENTIN 300 MG CAP PO SCH ×2 (08:02→21:12)
[2017-01-16] MEDS: PANTOPRAZOLE SOD 20 MG DELAYED RELEASE TAB PO SCH ×2 (08:03→21:12)
[2017-01-16] MEDS: risperiDONE ODT 2 MG TAB PO SCH ×2 (08:03→21:13)
[2017-01-16] MEDS: FERROUS FUMARATE 325 MG TAB (106 MG ELEMENTAL IRON) PO SCH ×2 (08:03→21:11)
[2017-01-16] MEDS: buPROPion HCL 150 MG SUSTAINED RELEASE TAB PO SCH ×2 (08:03→21:13)
[2017-01-16] MEDS: NAPROXEN 500 MG TAB PO SCH ×2 (08:04→21:12)
[2017-01-16] MEDS: LISINOPRIL 20 MG TAB PO SCH (08:04)
[2017-01-16] MEDS: REMOVE OLD PATCH T-DERMAL SCH (08:08)
[2017-01-16] MEDS: NICOTINE 21 MG/24 HR PATCH T-DERMAL SCH (08:08)
[2017-01-16] MEDS: ACYCLOVIR 200 MG CAP PO SCH ×2 (11:31→21:12)
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
[2017-01-16 17:27] VITALS: BP 123/84; PULSE 87; RESP 18; TEMP 98.3; O2SAT 98
[2017-01-16] MEDS: QUEtiapine FUMARATE 300 MG TAB PO SCH (21:13)
[2017-01-17] MEDS: LEVOTHYROXINE SODIUM 100 MCG TAB PO SCH (06:00)
[2017-01-17 06:22] VITALS: BP 137/64; PULSE 80; RESP 16; TEMP 98; O2SAT 98
[2017-01-17] MEDS: ACYCLOVIR 200 MG CAP PO SCH ×2 (09:00→21:09)
[2017-01-17] MEDS: NICOTINE 21 MG/24 HR PATCH T-DERMAL SCH (09:00)
[2017-01-17] MEDS: REMOVE OLD PATCH T-DERMAL SCH (09:00)
[2017-01-17] MEDS: LISINOPRIL 20 MG TAB PO SCH (09:05)
[2017-01-17] MEDS: FERROUS FUMARATE 325 MG TAB (106 MG ELEMENTAL IRON) PO SCH ×2 (09:05→21:10)
[2017-01-17] MEDS: buPROPion HCL 150 MG SUSTAINED RELEASE TAB PO SCH ×2 (09:05→21:09)
[2017-01-17] MEDS: NAPROXEN 500 MG TAB PO SCH ×2 (09:05→21:08)
[2017-01-17] MEDS: risperiDONE ODT 2 MG TAB PO SCH ×2 (09:05→21:08)
[2017-01-17] MEDS: GABAPENTIN 300 MG CAP PO SCH ×2 (09:06→21:08)
[2017-01-17] MEDS: PANTOPRAZOLE SOD 20 MG DELAYED RELEASE TAB PO SCH ×2 (09:06→21:09)
--- NOTE | 2017-01-17 09:06 | HHI.PYPN ---
Subjective Remarks Patient seen in her room the floor staff. Chart reviewed. Patient compliant medication. Patient showing some improved affect today with better eye contact. She continues to verify her desire to go to longterm, to maintain sobriety, and to stay away from her "boyfriend". She does have her list of shelters she will start contacting them today. She states the voices are just about gone. She states there is still some mild suicidality. For now continue treatment no change Review of Systems Except as stated in HPI: all other systems reviewed are Neg Objective Alert: Yes [place]: Person, Place, Date, Situation Mood: Depressed Affect: Restricted, Flat Memory Intact: Immediate, Recent, Remote Hallucinations: Auditory (denies at this time) Delusions: No Delusion Type: Other (not elicited) Suicidal: Ideation (denies at this time) Homicidal: Ideation (no HI) Insight/Judgment Poor Vitals/IOs Vital Signs Date Time Temp Pulse Resp B/P (MAP) Pulse Ox O2 Delivery O2 Flow Rate FiO2 01/17/17 06:22 98.0 80 16 137/64 (88) 98 Assessment & Plan Problem List: (1) Schizoaffective disorder, bipolar type ICD Codes: F25.0 - Schizoaffective disorder, bipolar type Status: Acute (2) Cocaine abuse ICD Codes: F14.10 - Cocaine abuse, uncomplicated Status: Acute (3) Alcohol abuse ICD Codes: F10.10 - Alcohol abuse, uncomplicated Assessment & Plan Estimated LOS: days patient showing some improvement in her affect to focus and her desire to explore safe discharge. The voices of diminished significantly. Suicidality is vague now somewhat focused with anxiety related to discharge Justification for Cont. Inpt. At this time patient will decompensate now placed in an appropriate level of care Discharge Planning Krzysztof Ibrahim MD Jan 17, 2017 09:06
[2017-01-17 18:20] VITALS: BP 111/80; PULSE 77; RESP 18; TEMP 98.9; O2SAT 99
[2017-01-17] MEDS: QUEtiapine FUMARATE 300 MG TAB PO SCH (21:08)
[2017-01-18] MEDS: LEVOTHYROXINE SODIUM 100 MCG TAB PO SCH (05:25)
[2017-01-18 05:30] VITALS: BP 103/56; PULSE 75; RESP 16; TEMP 98.3; O2SAT 100
[2017-01-18] MEDS: NAPROXEN 500 MG TAB PO SCH ×2 (08:49→21:15)
[2017-01-18] MEDS: FERROUS FUMARATE 325 MG TAB (106 MG ELEMENTAL IRON) PO SCH ×2 (08:49→21:17)
[2017-01-18] MEDS: buPROPion HCL 150 MG SUSTAINED RELEASE TAB PO SCH ×2 (08:49→21:15)
[2017-01-18] MEDS: LISINOPRIL 20 MG TAB PO SCH (08:49)
[2017-01-18] MEDS: ACYCLOVIR 200 MG CAP PO SCH ×2 (08:49→21:16)
[2017-01-18] MEDS: PANTOPRAZOLE SOD 20 MG DELAYED RELEASE TAB PO SCH ×2 (08:49→21:16)
[2017-01-18] MEDS: risperiDONE ODT 2 MG TAB PO SCH ×2 (08:50→21:16)
[2017-01-18] MEDS: GABAPENTIN 300 MG CAP PO SCH ×2 (08:50→21:16)
[2017-01-18] MEDS: REMOVE OLD PATCH T-DERMAL SCH (09:00)
[2017-01-18] MEDS: NICOTINE 21 MG/24 HR PATCH T-DERMAL SCH (09:00)
--- NOTE | 2017-01-18 15:04 | HHI.PYPN ---
Subjective Remarks Patient seen in her room with nurse Wilma, chart review, patient compliant medication. Patient showing increase affect, giving somewhat feisty at times, but if she showing effort and making phone calls looking for fdc. She states the voices continued to diminish. She now denies suicidality. For now continue treatment Review of Systems Except as stated in HPI: all other systems reviewed are Neg Objective Alert: Yes [place]: Person, Place, Date, Situation Mood: Depressed Affect: Restricted, Flat Memory Intact: Immediate, Recent, Remote Hallucinations: Auditory (today states there continuing to diminish) Delusions: No Delusion Type: Other (not elicited) Suicidal: Ideation (denies at this time) Homicidal: Ideation (no HI) Insight/Judgment Poor Vitals/IOs Vital Signs Date Time Temp Pulse Resp B/P (MAP) Pulse Ox O2 Delivery O2 Flow Rate FiO2 01/18/17 05:30 98.3 75 16 103/56 (72) 100 Assessment & Plan Problem List: (1) Schizoaffective disorder, bipolar type ICD Codes: F25.0 - Schizoaffective disorder, bipolar type Status: Acute (2) Cocaine abuse ICD Codes: F14.10 - Cocaine abuse, uncomplicated Status: Acute (3) Alcohol abuse ICD Codes: F10.10 - Alcohol abuse, uncomplicated Assessment & Plan Estimated LOS: days patient continues to improve. Voices are present today somewhat but diminishing, denies suicidality. Continues to make efforts to find appropriate fdc Justification for Cont. Inpt. At this time patient may decompensate does not placed in an appropriate level of care Discharge Planning To be determined Krzysztof Tello MD Jan 18, 2017 15:04
[2017-01-18 16:15] VITALS: BP 136/72; PULSE 81; RESP 17; TEMP 98.5; O2SAT 100
[2017-01-18] MEDS: QUEtiapine FUMARATE 300 MG TAB PO SCH (21:16)
[2017-01-19] MEDS: LEVOTHYROXINE SODIUM 100 MCG TAB PO SCH (05:27)
[2017-01-19 05:37] VITALS: BP 129/72; PULSE 74; RESP 18; TEMP 98; O2SAT 99
[2017-01-19] MEDS: REMOVE OLD PATCH T-DERMAL SCH (09:00)
[2017-01-19] MEDS: NICOTINE 21 MG/24 HR PATCH T-DERMAL SCH (09:00)
[2017-01-19] MEDS: NAPROXEN 500 MG TAB PO SCH ×2 (09:50→20:18)
[2017-01-19] MEDS: FERROUS FUMARATE 325 MG TAB (106 MG ELEMENTAL IRON) PO SCH ×2 (09:50→20:18)
[2017-01-19] MEDS: PANTOPRAZOLE SOD 20 MG DELAYED RELEASE TAB PO SCH ×2 (09:50→20:19)
[2017-01-19] MEDS: buPROPion HCL 150 MG SUSTAINED RELEASE TAB PO SCH ×2 (09:50→20:18)
[2017-01-19] MEDS: GABAPENTIN 300 MG CAP PO SCH ×2 (09:50→20:20)
[2017-01-19] MEDS: risperiDONE ODT 2 MG TAB PO SCH ×2 (09:50→20:19)
[2017-01-19] MEDS: LISINOPRIL 20 MG TAB PO SCH (09:51)
[2017-01-19] MEDS: ACYCLOVIR 200 MG CAP PO SCH ×2 (09:51→20:19)
[2017-01-19 17:46] VITALS: BP 112/56; PULSE 87; RESP 18; TEMP 98.3; O2SAT 100
--- NOTE | 2017-01-19 19:24 | HHI.PYPN ---
Subjective Remarks Patient was seen and case discussed with nursing. Patient is interviewed in bed. Patient continues to complain of psychotic symptoms but is somewhat superficial and vague and there is a question if she is exaggerating her symptoms. Auditory hallucinations are "better, telling me to kill myself." Complaining of fleeting suicidal thoughts with no intent or plan. Objective Alert: Yes [place]: Person, Place, Date, Situation Mood: Calm Affect: Restricted Memory Intact: Immediate, Recent, Remote Hallucinations: Auditory ("getting better, to kill herself") Delusions: No Delusion Type: Other (not elicited) Suicidal: Intent (denies), Plan (denies), Ideation (denies at this time) Homicidal: Ideation (no HI) Insight/Judgment Poor Vitals/IOs Vital Signs Date Time Temp Pulse Resp B/P (MAP) Pulse Ox O2 Delivery O2 Flow Rate FiO2 01/19/17 17:46 98.3 87 18 112/56 (74) 100 Assessment & Plan Problem List: (1) Schizoaffective disorder, bipolar type ICD Codes: F25.0 - Schizoaffective disorder, bipolar type Status: Acute (2) Cocaine abuse ICD Codes: F14.10 - Cocaine abuse, uncomplicated Status: Acute (3) Alcohol abuse ICD Codes: F10.10 - Alcohol abuse, uncomplicated Assessment & Plan Continue current treatment plan Justification for Cont. Inpt. Patient would decompensate in a less restrictive setting Von Dowell DO Jan 19, 2017 19:24
[2017-01-19] MEDS: QUEtiapine FUMARATE 300 MG TAB PO SCH (20:18)
[2017-01-20] MEDS: LEVOTHYROXINE SODIUM 100 MCG TAB PO SCH (05:28)
[2017-01-20 05:29] VITALS: BP 126/68; PULSE 92; RESP 16; TEMP 97.4; O2SAT 97
[2017-01-20] MEDS: NICOTINE 21 MG/24 HR PATCH T-DERMAL SCH (09:00)
[2017-01-20] MEDS: REMOVE OLD PATCH T-DERMAL SCH (09:00)
[2017-01-20] MEDS: FERROUS FUMARATE 325 MG TAB (106 MG ELEMENTAL IRON) PO SCH ×2 (09:27→20:57)
[2017-01-20] MEDS: ACYCLOVIR 200 MG CAP PO SCH ×2 (09:27→20:54)
[2017-01-20] MEDS: PANTOPRAZOLE SOD 20 MG DELAYED RELEASE TAB PO SCH ×2 (09:27→20:54)
[2017-01-20] MEDS: GABAPENTIN 300 MG CAP PO SCH ×2 (09:28→20:54)
[2017-01-20] MEDS: risperiDONE ODT 2 MG TAB PO SCH ×2 (09:28→20:54)
[2017-01-20] MEDS: buPROPion HCL 150 MG SUSTAINED RELEASE TAB PO SCH ×2 (09:28→20:54)
[2017-01-20] MEDS: LISINOPRIL 20 MG TAB PO SCH (09:28)
[2017-01-20] MEDS: NAPROXEN 500 MG TAB PO SCH ×2 (09:28→20:54)
[2017-01-20] MEDS: ACETAMINOPHEN 325 MG TAB PO PRN (11:45)
[2017-01-20 17:02] VITALS: BP 121/63; PULSE 82; RESP 18; TEMP 98.2; O2SAT 100
--- NOTE | 2017-01-20 17:56 | HHI.PYPN ---
Subjective Remarks Patient was seen and case discussed with nursing. Patient continues to state she has auditory hallucinations telling her to kill herself. She remains superficial with her statements. She has fleeting suicidal thoughts with no intent or plan. Largely seclusive to room and was asked to join others in the dayroom. Eating and sleeping well. No psychomotor retardation. Objective Alert: Yes [place]: Person, Place, Date, Situation Mood: Calm Affect: Appropriate Memory Intact: Immediate, Recent, Remote Hallucinations: Auditory (to kill herself) Delusions: No Delusion Type: Other (not elicited) Suicidal: Intent (denies), Plan (denies), Ideation (denies at this time) Homicidal: Ideation (no HI) Insight/Judgment Poor Vitals/IOs Vital Signs Date Time Temp Pulse Resp B/P (MAP) Pulse Ox O2 Delivery O2 Flow Rate FiO2 01/20/17 17:02 98.2 82 18 121/63 (82) 100 Assessment & Plan Problem List: (1) Schizoaffective disorder, bipolar type ICD Codes: F25.0 - Schizoaffective disorder, bipolar type Status: Acute (2) Cocaine abuse ICD Codes: F14.10 - Cocaine abuse, uncomplicated Status: Acute (3) Alcohol abuse ICD Codes: F10.10 - Alcohol abuse, uncomplicated Assessment & Plan Continue current treatment plan Justification for Cont. Inpt. Patient will decompensate in a less restrictive setting Von Dowell DO Jan 20, 2017 17:56
[2017-01-20] MEDS: QUEtiapine FUMARATE 300 MG TAB PO SCH (20:54)
[2017-01-21] MEDS: LEVOTHYROXINE SODIUM 100 MCG TAB PO SCH (05:47)
[2017-01-21 05:59] VITALS: BP 158/90; PULSE 80; RESP 17; TEMP 97.6; O2SAT 99
[2017-01-21] MEDS: NAPROXEN 500 MG TAB PO SCH ×2 (08:51→21:00)
[2017-01-21] MEDS: FERROUS FUMARATE 325 MG TAB (106 MG ELEMENTAL IRON) PO SCH ×2 (08:51→21:00)
[2017-01-21] MEDS: risperiDONE ODT 2 MG TAB PO SCH ×2 (08:51→21:00)
[2017-01-21] MEDS: LISINOPRIL 20 MG TAB PO SCH (08:52)
[2017-01-21] MEDS: ACYCLOVIR 200 MG CAP PO SCH ×2 (08:52→21:00)
[2017-01-21] MEDS: PANTOPRAZOLE SOD 20 MG DELAYED RELEASE TAB PO SCH ×2 (08:52→21:00)
[2017-01-21] MEDS: buPROPion HCL 150 MG SUSTAINED RELEASE TAB PO SCH ×2 (08:52→21:00)
[2017-01-21] MEDS: NICOTINE 21 MG/24 HR PATCH T-DERMAL SCH ×2 (08:52→08:58)
[2017-01-21] MEDS: GABAPENTIN 300 MG CAP PO SCH ×2 (08:52→21:00)
[2017-01-21] MEDS: REMOVE OLD PATCH T-DERMAL SCH (08:56)
--- NOTE | 2017-01-21 17:11 | HHI.PYPN ---
Subjective Remarks Patient was seen and case discussed with nursing. Per tech, patient is social, going outside and does not seem to be responding to internal stimuli. Patient casually says that she has fleeting suicidal ideation with no intent or plan. Remains vague and superficial concerning her auditory hallucinations. Says that they are telling her to kill herself, to overdose on sleeping pills. They are "off and on, better." Objective Alert: Yes [place]: Person, Place, Date, Situation Mood: Calm Affect: Appropriate Memory Intact: Immediate, Recent, Remote Hallucinations: Auditory (to kill herself) Delusions: No Delusion Type: Other (not elicited) Suicidal: Intent (denies), Plan (denies), Ideation (fleeting) Homicidal: Ideation (no HI) Insight/Judgment Poor Vitals/IOs Vital Signs Date Time Temp Pulse Resp B/P (MAP) Pulse Ox O2 Delivery O2 Flow Rate FiO2 01/21/17 05:59 97.6 80 17 158/90 (112) 99 Assessment & Plan Problem List: (1) Schizoaffective disorder, bipolar type ICD Codes: F25.0 - Schizoaffective disorder, bipolar type Status: Acute (2) Cocaine abuse ICD Codes: F14.10 - Cocaine abuse, uncomplicated Status: Acute (3) Alcohol abuse ICD Codes: F10.10 - Alcohol abuse, uncomplicated Assessment & Plan Continue current treatment plan Justification for Cont. Inpt. Patient will decompensate in a less restrictive setting Von Dowell DO Jan 21, 2017 17:11
[2017-01-21] MEDS: QUEtiapine FUMARATE 300 MG TAB PO SCH (21:00)
[2017-01-22] MEDS: LEVOTHYROXINE SODIUM 100 MCG TAB PO SCH (06:00)
[2017-01-22] MEDS: risperiDONE ODT 2 MG TAB PO SCH ×2 (08:20→21:00)
[2017-01-22] MEDS: PANTOPRAZOLE SOD 20 MG DELAYED RELEASE TAB PO SCH ×2 (08:23→21:00)
[2017-01-22] MEDS: LISINOPRIL 20 MG TAB PO SCH (08:23)
[2017-01-22] MEDS: NAPROXEN 500 MG TAB PO SCH ×2 (08:23→21:00)
[2017-01-22] MEDS: buPROPion HCL 150 MG SUSTAINED RELEASE TAB PO SCH ×2 (08:23→21:00)
[2017-01-22] MEDS: GABAPENTIN 300 MG CAP PO SCH ×2 (08:23→21:00)
[2017-01-22] MEDS: ACYCLOVIR 200 MG CAP PO SCH ×2 (08:23→21:00)
[2017-01-22] MEDS: FERROUS FUMARATE 325 MG TAB (106 MG ELEMENTAL IRON) PO SCH ×2 (08:23→21:00)
[2017-01-22] MEDS: REMOVE OLD PATCH T-DERMAL SCH (08:24)
[2017-01-22] MEDS: NICOTINE 21 MG/24 HR PATCH T-DERMAL SCH (08:24)
[2017-01-22] MEDS: hydrOXYzine HCL 50 MG TAB PO PRN (13:32)
--- NOTE | 2017-01-22 17:05 | HHI.PYPN ---
Subjective Remarks Patient seen for follow, chart review. Patient found sleeping but was able to wake up and interact with interview today. After discussion with nursing patient continues to endorse having auditory hallucinations. Patient states that she continues to have voices tell her to kill herself last time being earlier today which told her "take a whole bunch of pills". Patient reports that she has episodes of these voices daily and at this morning there were "not too bad" but was worsening throughout the day. Patient reports feeling anxious to the increase intensity of the auditory hallucinations and was given anxiolytic which she states had helped. Patient reports sleeping well, good appetite and no problem with urination or bowel movement. Patient denies any side effects from current treatment regimen. Patient reports that she had felt her best about 2 years ago which the auditory hallucinations were at a minimum and feels at this time that she is not at that point yet. Review of Systems Except as stated in HPI: all other systems reviewed are Neg Objective Alert: Yes [place]: Person, Place, Date, Situation Mood: Calm Affect: Restricted Memory Intact: Immediate, Recent, Remote Hallucinations: Auditory (command auditory hallucinations) Delusions: No Delusion Type: Other (not elicited) Suicidal: Ideation (passive) Homicidal: Ideation (no HI) Insight/Judgment Limited insight, fair impulse control and judgment Vitals/IOs Vital Signs Date Time Temp Pulse Resp B/P (MAP) Pulse Ox O2 Delivery O2 Flow Rate FiO2 01/21/17 05:59 97.6 80 17 158/90 (112) 99 Assessment & Plan Problem List: (1) Schizoaffective disorder, bipolar type ICD Codes: F25.0 - Schizoaffective disorder, bipolar type Status: Acute (2) Cocaine abuse ICD Codes: F14.10 - Cocaine abuse, uncomplicated Status: Acute (3) Alcohol abuse ICD Codes: F10.10 - Alcohol abuse, uncomplicated Assessment & Plan Patient at this time continues to endorse auditory hallucinations command type telling her to kill herself. Patient states that she continues to be distressed about the intensity of the auditory hallucinations which continue to occur daily but reports decreased intensity compared to her admission. We'll continue risperidone 3 mg by mouth twice a day, increase quetiapine to 350 mg by mouth at bedtime, continue bupropion 150 mg by mouth twice a day. Monitor for medication response and adverse drug reactions. Discharge planning in progress Justification for Cont. Inpt. Patient at risk for further decompensation if at a lower level of care Sylvain Gregorio MD Jan 22, 2017 17:05
[2017-01-22 17:40] VITALS: BP 108/67; PULSE 85; RESP 18; TEMP 97; O2SAT 98
[2017-01-22] MEDS: QUEtiapine FUMARATE 100 MG TAB PO SCH (21:00)
[2017-01-23] MEDS: LEVOTHYROXINE SODIUM 100 MCG TAB PO SCH (06:00)
[2017-01-23] MEDS: FERROUS FUMARATE 325 MG TAB (106 MG ELEMENTAL IRON) PO SCH ×2 (08:31→20:30)
[2017-01-23] MEDS: ACYCLOVIR 200 MG CAP PO SCH ×2 (08:31→20:30)
[2017-01-23] MEDS: risperiDONE ODT 2 MG TAB PO SCH ×2 (08:32→20:30)
[2017-01-23] MEDS: LISINOPRIL 20 MG TAB PO SCH (08:33)
[2017-01-23] MEDS: PANTOPRAZOLE SOD 20 MG DELAYED RELEASE TAB PO SCH ×2 (08:33→20:30)
[2017-01-23] MEDS: buPROPion HCL 150 MG SUSTAINED RELEASE TAB PO SCH ×2 (08:33→20:30)
[2017-01-23] MEDS: GABAPENTIN 300 MG CAP PO SCH ×2 (08:33→20:30)
[2017-01-23] MEDS: NAPROXEN 500 MG TAB PO SCH ×2 (08:34→20:30)
[2017-01-23] MEDS: NICOTINE 21 MG/24 HR PATCH T-DERMAL SCH (09:00)
[2017-01-23] MEDS: REMOVE OLD PATCH T-DERMAL SCH (09:00)
--- NOTE | 2017-01-23 15:50 | HHI.PYPN ---
Subjective Remarks Patient seen for follow-up, chart review. Patient found lying in hospital bed but was able to engage adequately in interview today. Patient states that she is feeling "eating better" but continues to endorse command auditory hallucinations but have decreased in intensity and duration. She states that she has been having them about 4 times per day by lasting minutes during each episode. She states that the intensity is also decreased from 10 out of 10-5 out of 10 (10 being most intense). Patient states that she is eating and drinking well, tolerating medications well but states that during the day she feels a little too sedated due to the recent increase in quetiapine last evening. Patient states that she has gone to one group activity today and plans on continuing attending groups. Patient stated that she has slept well, mood has been "better" denies any depressive or manic symptoms at this time. Patient states that she plans on looking for possible affordable housing or referral to longterm placement. She states that she had been living with her boyfriend for the past 3 years but had a falling out with him at all likely able to return there. Patient during last admission was discharged back to her sister in [place] but unclear whether that is an option now. Review of Systems Except as stated in HPI: all other systems reviewed are Neg Objective Alert: Yes [place]: Person, Place, Date, Situation Mood: Calm Affect: Restricted (slightly less so today) Memory Intact: Immediate, Recent, Remote Hallucinations: Auditory (command auditory hallucinations) Delusions: No Delusion Type: Other (not elicited) Suicidal: Ideation (passive) Homicidal: Ideation (no HI) Insight/Judgment Limited insight, fair impulse control, and judgment Vitals/IOs Vital Signs Date Time Temp Pulse Resp B/P (MAP) Pulse Ox O2 Delivery O2 Flow Rate FiO2 01/22/17 17:40 97.0 85 18 108/67 (81) 98 Assessment & Plan Problem List: (1) Schizoaffective disorder, bipolar type ICD Codes: F25.0 - Schizoaffective disorder, bipolar type Status: Acute (2) Cocaine abuse ICD Codes: F14.10 - Cocaine abuse, uncomplicated Status: Acute (3) Alcohol abuse ICD Codes: F10.10 - Alcohol abuse, uncomplicated Assessment & Plan Patient at this time noted to be slightly less disorganized, able to engage more adequately in interview today. Patient continues to have perceptual disturbances (auditory hallucinations command type telling her to kill herself) although reports less intensity and duration and frequency. Patient appears to responding to current treatment regimen due to recent report of sedation during the day will not increase quetiapine for now and we'll continue to monitor for medication response to current regimen. Discharge planning in progress. Patient may be able to be referred to appropriate living facility versus returning back to the sister versus referral to longterm. Justification for Cont. Inpt. Patient at risk for further decompensation if at a lower level of care Sylvain Gregorio MD Jan 23, 2017 15:50
[2017-01-23 18:52] VITALS: BP 120/76; PULSE 75; RESP 20; TEMP 96.7; O2SAT 97
[2017-01-23] MEDS: QUEtiapine FUMARATE 100 MG TAB PO SCH (20:30)
[2017-01-24 05:40] VITALS: BP 129/67; PULSE 71; RESP 16; TEMP 98.3; O2SAT 99
[2017-01-24] MEDS: LEVOTHYROXINE SODIUM 100 MCG TAB PO SCH (06:00)
[2017-01-24] MEDS: LISINOPRIL 20 MG TAB PO SCH (08:23)
[2017-01-24] MEDS: NAPROXEN 500 MG TAB PO SCH ×2 (08:23→20:26)
[2017-01-24] MEDS: ACYCLOVIR 200 MG CAP PO SCH ×2 (08:23→20:26)
[2017-01-24] MEDS: GABAPENTIN 300 MG CAP PO SCH ×2 (08:23→20:26)
[2017-01-24] MEDS: FERROUS FUMARATE 325 MG TAB (106 MG ELEMENTAL IRON) PO SCH ×2 (08:24→20:29)
[2017-01-24] MEDS: risperiDONE ODT 2 MG TAB PO SCH ×2 (08:24→20:26)
[2017-01-24] MEDS: PANTOPRAZOLE SOD 20 MG DELAYED RELEASE TAB PO SCH ×2 (08:24→20:26)
[2017-01-24] MEDS: buPROPion HCL 150 MG SUSTAINED RELEASE TAB PO SCH ×2 (08:24→20:26)
[2017-01-24] MEDS: NICOTINE 21 MG/24 HR PATCH T-DERMAL SCH (09:00)
[2017-01-24] MEDS: REMOVE OLD PATCH T-DERMAL SCH (09:00)
[2017-01-24 15:45] VITALS: BP 136/86; PULSE 81; RESP 18; TEMP 98.8; O2SAT 97
--- NOTE | 2017-01-24 17:56 | HHI.PYPN ---
Subjective Remarks Patient seen for follow up; chart reviewed. Patient states that she is feeling better but continues to have AH "not so bad right now" with intensity continuing to be 5/10 (10 being most intense). He states that she is trying to remain active during the day despite feeling sedated due to the medications. She is considering inpatient rehabiliation programs as well as group home [facility] upon discharge. Review of Systems Except as stated in HPI: all other systems reviewed are Neg Objective Alert: Yes [place]: Person, Place, Date, Situation Mood: Calm Affect: Restricted (slightly less so today) Memory Intact: Immediate, Recent, Remote Hallucinations: Auditory (command auditory hallucinations) Delusions: No Delusion Type: Other (not elicited) Suicidal: Ideation (passive) Homicidal: Ideation (no HI) Insight/Judgment limited insight, fair impulse control and judgment Vitals/IOs Vital Signs Date Time Temp Pulse Resp B/P (MAP) Pulse Ox O2 Delivery O2 Flow Rate FiO2 01/24/17 15:45 98.8 81 18 136/86 (103) 97 Assessment & Plan Problem List: (1) Schizoaffective disorder, bipolar type ICD Codes: F25.0 - Schizoaffective disorder, bipolar type Status: Acute (2) Cocaine abuse ICD Codes: F14.10 - Cocaine abuse, uncomplicated Status: Acute (3) Alcohol abuse ICD Codes: F10.10 - Alcohol abuse, uncomplicated Assessment & Plan Patient continues with AH which are distressing. Will increase quetiapine to 400mg PO HS. Will explore options for referral to inpatient rehabiliation programs. Justification for Cont. Inpt. At risk for further decompensation if at lower level of care. Sylvain Gregorio MD Jan 24, 2017 17:56
[2017-01-24] MEDS: QUEtiapine FUMARATE 100 MG TAB PO SCH (20:27)
[2017-01-25] MEDS: LEVOTHYROXINE SODIUM 100 MCG TAB PO SCH (05:07)
[2017-01-25 05:49] VITALS: BP 123/74; PULSE 75; RESP 18; TEMP 97.9; O2SAT 97
[2017-01-25] MEDS: PANTOPRAZOLE SOD 20 MG DELAYED RELEASE TAB PO SCH ×2 (08:49→21:24)
[2017-01-25] MEDS: buPROPion HCL 150 MG SUSTAINED RELEASE TAB PO SCH ×2 (08:50→21:24)
[2017-01-25] MEDS: risperiDONE ODT 2 MG TAB PO SCH ×2 (08:50→21:23)
[2017-01-25] MEDS: GABAPENTIN 300 MG CAP PO SCH ×2 (08:50→21:24)
[2017-01-25] MEDS: FERROUS FUMARATE 325 MG TAB (106 MG ELEMENTAL IRON) PO SCH ×2 (08:50→21:24)
[2017-01-25] MEDS: ACYCLOVIR 200 MG CAP PO SCH ×2 (08:50→21:00)
[2017-01-25] MEDS: NICOTINE 21 MG/24 HR PATCH T-DERMAL SCH (08:50)
[2017-01-25] MEDS: NAPROXEN 500 MG TAB PO SCH ×2 (08:50→21:24)
[2017-01-25] MEDS: LISINOPRIL 20 MG TAB PO SCH (08:50)
[2017-01-25] MEDS: REMOVE OLD PATCH T-DERMAL SCH (09:00)
[2017-01-25] MEDS: ACETAMINOPHEN 325 MG TAB PO PRN ×2 (11:33→21:29)
--- NOTE | 2017-01-25 14:29 | HHI.PYPN ---
Subjective Remarks Patient seen for follow up; chart reviewed. Patient was moved to a lesser acuity unit. She states feeling "ok", slept well, decrease in AH (4/10) but still present. She states having some discomfort urinating. She still looking for places after discharge and considering assisted houses or rehabilation programs. Review of Systems Except as stated in HPI: all other systems reviewed are Neg Objective Alert: Yes [place]: Person, Place, Date, Situation Mood: Calm Affect: Appropriate Memory Intact: Immediate, Recent, Remote Hallucinations: Auditory (command auditory hallucinations) Delusions: No Delusion Type: Other (not elicited) Suicidal: Ideation (passive) Homicidal: Ideation (no HI) Insight/Judgment Improved insight, impulse control and judgment Labs labs reviewed. Date/Time Source Procedure Growth Status 01/25/17 07:00 Urine Random Urine Urine Culture Pending Received Vitals/IOs Vital Signs Date Time Temp Pulse Resp B/P (MAP) Pulse Ox O2 Delivery O2 Flow Rate FiO2 01/25/17 05:49 97.9 75 18 123/74 (90) 97 Assessment & Plan Problem List: (1) Schizoaffective disorder, bipolar type ICD Codes: F25.0 - Schizoaffective disorder, bipolar type Status: Acute (2) Cocaine abuse ICD Codes: F14.10 - Cocaine abuse, uncomplicated Status: Acute (3) Alcohol abuse ICD Codes: F10.10 - Alcohol abuse, uncomplicated Assessment & Plan Patient to continue current treatment as she is responding well to it. UA pending. Discharge planningi in progress with possible referral to inpatient rehabiliation program or assisted house. Justification for Cont. Inpt. At risk for further decompensation if at lower level of care. Sylvain Gregorio MD Jan 25, 2017 14:29
[2017-01-25 18:27] VITALS: BP 169/82; PULSE 94; RESP 18; TEMP 98.9; O2SAT 95
[2017-01-25] MEDS: QUEtiapine FUMARATE 100 MG TAB PO SCH (21:23)
[2017-01-26] MEDS: LEVOTHYROXINE SODIUM 100 MCG TAB PO SCH (06:06)
[2017-01-26 06:33] VITALS: BP 121/66; PULSE 74; RESP 17; TEMP 97.8; O2SAT 97
[2017-01-26] MEDS: GABAPENTIN 300 MG CAP PO SCH ×2 (09:00→22:43)
[2017-01-26] MEDS: ACYCLOVIR 200 MG CAP PO SCH ×2 (09:00→22:44)
[2017-01-26] MEDS: NAPROXEN 500 MG TAB PO SCH ×2 (09:00→22:44)
[2017-01-26] MEDS: LISINOPRIL 20 MG TAB PO SCH (09:00)
[2017-01-26] MEDS: NICOTINE 21 MG/24 HR PATCH T-DERMAL SCH (09:00)
[2017-01-26] MEDS: buPROPion HCL 150 MG SUSTAINED RELEASE TAB PO SCH ×2 (09:00→22:44)
[2017-01-26] MEDS: REMOVE OLD PATCH T-DERMAL SCH (09:00)
[2017-01-26] MEDS: FERROUS FUMARATE 325 MG TAB (106 MG ELEMENTAL IRON) PO SCH ×2 (09:00→22:46)
[2017-01-26] MEDS: risperiDONE ODT 2 MG TAB PO SCH ×2 (09:00→22:43)
[2017-01-26] MEDS: PANTOPRAZOLE SOD 20 MG DELAYED RELEASE TAB PO SCH ×2 (09:00→22:44)
[2017-01-26 09:37] LABS: BACTERIA, URINE RARE /hpf; BLOOD, URINE NEG (NEG); GLUCOSE,URINE NEG (NEG); KETONE, URINE NEG (NEG); MUCUS URINE FEW /lpf (OCC); NITRITE,URINE NEG (NEG); SQUAMOUS EPITHELIAL CELL URINE 2 /hpf (0-5); URINE COLOR LIGHT-YELLOW (YELLW/STRAW)
--- NOTE | 2017-01-26 14:27 | HHI.PYPN ---
Subjective Remarks Pt seen and discussed with staff. She refused all meds except risperidone today and has he is withdrawn and only comes out for meals. No SI/HI. Objective Alert: Yes [place]: Person, Place, Date, Situation Mood: Calm Affect: Appropriate Memory Intact: Immediate, Recent, Remote Hallucinations: Auditory (command auditory hallucinations) Delusions: No Delusion Type: Other (not elicited) Suicidal: Ideation (passive) Homicidal: Ideation (no HI) Insight/Judgment poor Labs Date/Time Source Procedure Growth Status 01/25/17 07:00 Urine Random Urine Urine Culture Pending Received Vitals/IOs Vital Signs Date Time Temp Pulse Resp B/P (MAP) Pulse Ox O2 Delivery O2 Flow Rate FiO2 01/26/17 06:33 97.8 74 17 121/66 (84) 97 Assessment & Plan Problem List: (1) Schizoaffective disorder, bipolar type ICD Codes: F25.0 - Schizoaffective disorder, bipolar type Status: Acute (2) Cocaine abuse ICD Codes: F14.10 - Cocaine abuse, uncomplicated Status: Acute (3) Alcohol abuse ICD Codes: F10.10 - Alcohol abuse, uncomplicated Assessment & Plan Continue current tx plan. Estimated LOS: days Justification for Cont. Inpt. risk of decompensation Alina Henson MD Jan 26, 2017 14:27
[2017-01-26] MEDS: hydrOXYzine HCL 50 MG TAB PO PRN (17:51)
[2017-01-26 18:43] VITALS: BP 165/95; PULSE 86; RESP 18; TEMP 98.9; O2SAT 97
[2017-01-26] MEDS: QUEtiapine FUMARATE 100 MG TAB PO SCH (22:43)
[2017-01-27] MEDS: LEVOTHYROXINE SODIUM 100 MCG TAB PO SCH (06:18)
[2017-01-27 06:32] VITALS: BP 124/77; PULSE 83; RESP 18; TEMP 98.4; O2SAT 97
[2017-01-27] MEDS: buPROPion HCL 150 MG SUSTAINED RELEASE TAB PO SCH ×2 (09:00→22:20)
[2017-01-27] MEDS: GABAPENTIN 300 MG CAP PO SCH ×2 (09:00→22:21)
[2017-01-27] MEDS: risperiDONE ODT 2 MG TAB PO SCH ×2 (09:00→22:21)
[2017-01-27] MEDS: ACYCLOVIR 200 MG CAP PO SCH ×2 (09:00→22:20)
[2017-01-27] MEDS: PANTOPRAZOLE SOD 20 MG DELAYED RELEASE TAB PO SCH ×2 (09:00→22:21)
[2017-01-27] MEDS: FERROUS FUMARATE 325 MG TAB (106 MG ELEMENTAL IRON) PO SCH ×2 (09:00→22:21)
[2017-01-27] MEDS: REMOVE OLD PATCH T-DERMAL SCH (09:00)
[2017-01-27] MEDS: NAPROXEN 500 MG TAB PO SCH ×2 (09:00→22:20)
[2017-01-27] MEDS: LISINOPRIL 20 MG TAB PO SCH (09:00)
[2017-01-27] MEDS: NICOTINE 21 MG/24 HR PATCH T-DERMAL SCH (09:00)
--- NOTE | 2017-01-27 15:48 | HHI.PYPN ---
Subjective Remarks Pt seen and discussed with staff. She was compliant with medications today. No behavioral problems. She has been in room most of the day but later did spend some time out in milieu. No SI/HI Objective Alert: Yes [place]: Person, Place, Date, Situation Mood: Calm Affect: Appropriate Memory Intact: Immediate, Recent, Remote Hallucinations: Auditory (denies today) Delusions: No Delusion Type: Other (not elicited) Suicidal: Ideation (passive) Homicidal: Ideation (no HI) Insight/Judgment poor Labs Date/Time Source Procedure Growth Status 01/25/17 07:00 Urine Random Urine Urine Culture - Final 50-100,000 CFU/ML MIXED GRAM POSITIVE... Complete Vitals/IOs Vital Signs Date Time Temp Pulse Resp B/P (MAP) Pulse Ox O2 Delivery O2 Flow Rate FiO2 01/27/17 06:32 98.4 83 18 124/77 (93) 97 Intake and Output 01/27/17 01/27/17 01/28/17 08:00 16:00 00:00 Intake Total 240 ml Balance 240 ml Assessment & Plan Problem List: (1) Schizoaffective disorder, bipolar type ICD Codes: F25.0 - Schizoaffective disorder, bipolar type Status: Acute (2) Cocaine abuse ICD Codes: F14.10 - Cocaine abuse, uncomplicated Status: Acute (3) Alcohol abuse ICD Codes: F10.10 - Alcohol abuse, uncomplicated Assessment & Plan Continue current tx plan. Estimated LOS: days Justification for Cont. Inpt. risk of decompensation Alina Henson MD Jan 27, 2017 15:48
[2017-01-27 18:32] VITALS: BP 124/63; PULSE 84; RESP 18; TEMP 98.6; O2SAT 98
[2017-01-27] MEDS: QUEtiapine FUMARATE 100 MG TAB PO SCH (22:20)
[2017-01-28 04:49] VITALS: BP 125/62; PULSE 76; RESP 18; TEMP 98; O2SAT 97
[2017-01-28] MEDS: LEVOTHYROXINE SODIUM 100 MCG TAB PO SCH (06:09)
[2017-01-28] MEDS: NAPROXEN 500 MG TAB PO SCH ×2 (09:07→22:29)
[2017-01-28] MEDS: GABAPENTIN 300 MG CAP PO SCH ×2 (09:07→22:27)
[2017-01-28] MEDS: FERROUS FUMARATE 325 MG TAB (106 MG ELEMENTAL IRON) PO SCH ×2 (09:07→22:29)
[2017-01-28] MEDS: ACYCLOVIR 200 MG CAP PO SCH ×2 (09:07→22:28)
[2017-01-28] MEDS: risperiDONE ODT 2 MG TAB PO SCH ×2 (09:08→22:31)
[2017-01-28] MEDS: LISINOPRIL 20 MG TAB PO SCH (09:08)
[2017-01-28] MEDS: PANTOPRAZOLE SOD 20 MG DELAYED RELEASE TAB PO SCH ×2 (09:08→22:28)
[2017-01-28] MEDS: buPROPion HCL 150 MG SUSTAINED RELEASE TAB PO SCH ×2 (09:08→22:28)
[2017-01-28] MEDS: NICOTINE 21 MG/24 HR PATCH T-DERMAL SCH (09:13)
[2017-01-28] MEDS: REMOVE OLD PATCH T-DERMAL SCH (09:15)
[2017-01-28] MEDS: hydrOXYzine HCL 50 MG TAB PO PRN (14:45)
[2017-01-28] MEDS: ACETAMINOPHEN 325 MG TAB PO PRN (14:46)
--- NOTE | 2017-01-28 17:59 | HHI.PYPN ---
Subjective Remarks Patient seen for follow-up, chart reviewed. Patient found lying on hospital bed , calm and cooperative with interview. Patient states that she has been feeling "pretty good", reports AH as being "much better", 3/10 (10 being worst), last AH was a couple of days ago. She states that she has tried to remain active and participate in groups. She agrees to go to inpatient rehabilitation program or [facility] and currently trying to contact different locations. Review of Systems Except as stated in HPI: all other systems reviewed are Neg Objective Alert: Yes [place]: Person, Place, Date, Situation Mood: Calm Affect: Appropriate Memory Intact: Immediate, Recent, Remote Hallucinations: Auditory (denies today) Delusions: No Delusion Type: Other (not elicited) Suicidal: Ideation (passive) Homicidal: Ideation (no HI) Insight/Judgment Improved insight, impulse control and judgment Labs Date/Time Source Procedure Growth Status 01/25/17 07:00 Urine Random Urine Urine Culture - Final 50-100,000 CFU/ML MIXED GRAM POSITIVE... Complete Vitals/IOs Vital Signs Date Time Temp Pulse Resp B/P (MAP) Pulse Ox O2 Delivery O2 Flow Rate FiO2 01/28/17 04:49 98.0 76 18 125/62 (83) 97 Intake and Output 01/28/17 01/28/17 01/29/17 08:00 16:00 00:00 Intake Total 260 ml 260 ml Balance 260 ml 260 ml Assessment & Plan Problem List: (1) Schizoaffective disorder, bipolar type ICD Codes: F25.0 - Schizoaffective disorder, bipolar type Status: Acute (2) Cocaine abuse ICD Codes: F14.10 - Cocaine abuse, uncomplicated Status: Acute (3) Alcohol abuse ICD Codes: F10.10 - Alcohol abuse, uncomplicated Assessment & Plan Patient noted to have less perceptual disturbances, stable mood and likely for discharge once placement is confirmed at rehabilitation program or [facility]. Continue current treatment; discharge planning in progress. Justification for Cont. Inpt. At risk for further decompensation if at lower level of care Sylvain Gregorio MD Jan 28, 2017 17:59
[2017-01-28] MEDS: QUEtiapine FUMARATE 100 MG TAB PO SCH (22:46)
[2017-01-29] MEDS: LEVOTHYROXINE SODIUM 100 MCG TAB PO SCH (04:56)
[2017-01-29 06:00] VITALS: BP 109/55; PULSE 87; RESP 18; TEMP 97.6; O2SAT 98
[2017-01-29] MEDS: NICOTINE 21 MG/24 HR PATCH T-DERMAL SCH (09:00)
[2017-01-29] MEDS: REMOVE OLD PATCH T-DERMAL SCH (09:00)
[2017-01-29] MEDS: buPROPion HCL 150 MG SUSTAINED RELEASE TAB PO SCH ×2 (09:00→20:25)
[2017-01-29] MEDS: PANTOPRAZOLE SOD 20 MG DELAYED RELEASE TAB PO SCH ×2 (09:52→20:26)
[2017-01-29] MEDS: LISINOPRIL 20 MG TAB PO SCH (09:52)
[2017-01-29] MEDS: ACYCLOVIR 200 MG CAP PO SCH ×2 (09:52→20:25)
[2017-01-29] MEDS: FERROUS FUMARATE 325 MG TAB (106 MG ELEMENTAL IRON) PO SCH ×2 (09:52→20:25)
[2017-01-29] MEDS: NAPROXEN 500 MG TAB PO SCH ×2 (09:52→20:25)
[2017-01-29] MEDS: GABAPENTIN 300 MG CAP PO SCH ×2 (09:52→20:26)
[2017-01-29] MEDS: risperiDONE ODT 2 MG TAB PO SCH ×2 (09:53→20:26)
--- NOTE | 2017-01-29 16:25 | HHI.PYPN ---
Subjective Remarks Patient seen for follow-up, chart reviewed. Patient found lying on hospital bed , stating that she feels ready to be discharged back home and continue with rehabilitation from substance use. She reports feeling "much better", has minimal AH which she describes as 3/10 and reports is able to ignore them. She reports of having some difficulty with bowel movement but eating and drinking ok , no ADRs from medications. Review of Systems Except as stated in HPI: all other systems reviewed are Neg Objective Alert: Yes [place]: Person, Place, Date, Situation Mood: Calm Affect: Appropriate Memory Intact: Immediate, Recent, Remote Hallucinations: Other (denies) Delusions: No Delusion Type: Other (not elicited) Suicidal: Ideation (passive) Homicidal: Ideation (no HI) Insight/Judgment Fair insight, impulse control and judgment Labs Date/Time Source Procedure Growth Status 01/25/17 07:00 Urine Random Urine Urine Culture - Final 50-100,000 CFU/ML MIXED GRAM POSITIVE... Complete Vitals/IOs Vital Signs Date Time Temp Pulse Resp B/P (MAP) Pulse Ox O2 Delivery O2 Flow Rate FiO2 01/29/17 06:00 97.6 87 18 109/55 (73) 98 Intake and Output 01/29/17 01/29/17 01/30/17 08:00 16:00 00:00 Intake Total 840 ml Balance 840 ml Assessment & Plan Problem List: (1) Schizoaffective disorder, bipolar type ICD Codes: F25.0 - Schizoaffective disorder, bipolar type Status: Acute (2) Cocaine abuse ICD Codes: F14.10 - Cocaine abuse, uncomplicated Status: Acute (3) Alcohol abuse ICD Codes: F10.10 - Alcohol abuse, uncomplicated Assessment & Plan Patient noted to have responded well to treatment, with almost cessation of AH, improved insight and judgment. Continue current treatment. Discharge likely tomorrow AM with plan to have patient follow up at [facility] for assessment for substance rehabilitation program. Discharge planning in progress. Justification for Cont. Inpt. At risk for further decompensation if at lower level of care. Sylvain Gregorio MD Jan 29, 2017 16:24
[2017-01-29 17:16] VITALS: BP 113/61; PULSE 86; RESP 18; TEMP 98.6; O2SAT 96
[2017-01-29] MEDS: hydrOXYzine HCL 50 MG TAB PO PRN (18:24)
[2017-01-29] MEDS: ACETAMINOPHEN 325 MG TAB PO PRN (18:24)
[2017-01-29] MEDS: QUEtiapine FUMARATE 100 MG TAB PO SCH (20:24)
[2017-01-30 06:18] VITALS: BP 135/82; PULSE 72; RESP 16; TEMP 98; O2SAT 100
[2017-01-30] MEDS: LEVOTHYROXINE SODIUM 100 MCG TAB PO SCH (06:24)
[2017-01-30] MEDS: NICOTINE 21 MG/24 HR PATCH T-DERMAL SCH (09:00)
[2017-01-30] MEDS: FERROUS FUMARATE 325 MG TAB (106 MG ELEMENTAL IRON) PO SCH (09:00)
[2017-01-30] MEDS: REMOVE OLD PATCH T-DERMAL SCH (09:00)
[2017-01-30] MEDS ORDERED: PANT20 PO (09:53)
[2017-01-30] MEDS ORDERED: ACYC400T PO (09:53)
[2017-01-30] MEDS ORDERED: HEMO324T PO (09:53)
[2017-01-30] MEDS ORDERED: QUET1TAB11 PO (09:53)
[2017-01-30] MEDS ORDERED: NAPR500 PO (09:53)
[2017-01-30] MEDS ORDERED: BUPR150CR PO (09:53)
[2017-01-30] MEDS ORDERED: NEUR300C PO (09:53)
[2017-01-30] MEDS ORDERED: LEVO.1 PO (09:53)
[2017-01-30] MEDS ORDERED: RISP3TAB2 PO (09:53)
[2017-01-30] MEDS ORDERED: LISI-515 PO (09:53)
[2017-01-30] MEDS ORDERED: HYDR50CA PO (09:53)
[2017-01-30] MEDS: LISINOPRIL 20 MG TAB PO SCH (10:04)
[2017-01-30] MEDS: PANTOPRAZOLE SOD 20 MG DELAYED RELEASE TAB PO SCH (10:04)
[2017-01-30] MEDS: buPROPion HCL 150 MG SUSTAINED RELEASE TAB PO SCH (10:04)
[2017-01-30] MEDS: NAPROXEN 500 MG TAB PO SCH (10:04)
[2017-01-30] MEDS: ACYCLOVIR 200 MG CAP PO SCH (10:05)
[2017-01-30] MEDS: GABAPENTIN 300 MG CAP PO SCH (10:05)
[2017-01-30] MEDS: risperiDONE ODT 2 MG TAB PO SCH (10:06)
--- NOTE | 2017-01-30 10:39 | PD.TTN ---
Patient Problems 1. Discharge planning 2. Medication compliance 3. Knowledge deficit 4. Lack of coping skills Progress Toward Goals Provider Present: Dr. Ashley Gregorio Provider Input: Dr. Gregorio reported the patient will be discharged home today. Psychiatric Counselors Present: FRANK Dinh Psych Therapist Input: Counselor reported the patient has been provided with [facility] substance referral and multiple resources for sober living homes. Patient will follow-up at [facility] for out-patient care. Group Spec/RT/OT/VILLAR Present: Carlos Triana OT Discharge Plan [facility] Documentation Scribe: FRANK Dinh Date Resolved: Jan 30, 2017 Hina Hanna Jan 30, 2017 10:39
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
== END 2017-01-30 14:14 | disposition home or self-care (01) | DRG 885 ==
LOC: NEPD 02:31 → NEDA 16:49 → H260 17:23 → H270 01-13 10:45 → H260 01-25 10:35
PROVIDERS: ADMIT Student in an Organized Health Care Education/Training Program; ATTEND Student in an Organized Health Care Education/Training Program
DX: F25.0 Schizoaffective disorder, bipolar type (principal); F14.10 Cocaine abuse, uncomplicated; F10.10 Alcohol abuse, uncomplicated; Y90.1 Blood alcohol level of 20-39 mg/100 ml; Z91.410 Personal history of adult physical and sexual abuse; I10 Essential (primary) hypertension; K21.9 Gastro-esophageal reflux disease without esophagitis; E03.9 Hypothyroidism, unspecified; M19.90 Unspecified osteoarthritis, unspecified site; F17.210 Nicotine dependence, cigarettes, uncomplicated; A60.00 Herpesviral infection of urogenital system, unspecified
CPT/HCPCS: 80048; 80061; 80307; 81001; 83036; 85025; 87086; 93005; 96372; Q0163

== ENCOUNTER 2017-04-03 23:46 | Inpatient (IN) | payer MEDICAID, OTHER ==
[~2017-04-03] VITALS: Ht 165.1 cm; Wt 107.7 kg
[~2017-04-03 23:46] MED LIST changes: +HYDR50CA PO; +MELO7.5T27 PO; -MELO7.5T4 PO; +NAPR500 PO; +NAPR500T2 PO; +QUET400T PO; +RISP3TAB2 PO
[2017-04-03 23:51] VITALS: BP 136/96; PULSE 82; RESP 18; TEMP 97.5; O2SAT 97
--- NOTE | 2017-04-04 01:14 | PD ---
HPI Chief Complaint: Seizure Time Seen by Provider: 00:38 Travel History International Travel<30 days: No Contact w/Intl Traveler<30days: No Traveled to known affect area: No History of Present Illness HPI 47-year-old female was brought in by EMS after a seizure at home. Patient states that she was doing alcohol and cocaine and some pills that she does not know the name of. Patient states that her boyfriend states that she had a seizure and passed out subsequently. Patient denies any injury during the episode. Patient states that she was depressed and tried to kill herself by taking the substance. Patient has history of schizophrenia and has not been on her medication the condition. Patient states that she is out of her medication for the past 3 weeks. Patient denies any today. Patient denies any chest pain or shortness of breath. Patient denies abdominal pain. Patient denies any focal weakness or numbness of extremity. PFSH Past Medical History Hx Anticoagulant Therapy: No Arthritis: Yes (HIPS, LEGS) Bipolar Disorder: Yes Anxiety: Yes Depression: Yes Cardiovascular Problems: No Chemotherapy: No Chest Pain: Yes Congestive Heart Failure: No Cerebrovascular Accident: No Diabetes: No Diminished Hearing: No Endocrine: Yes Gastrointestinal Disorders: Yes GERD: Yes Genitourinary: No Headaches: Yes Hypertension: Yes Immune Disorder: No Musculoskeletal: Yes Neurologic: Yes Psychiatric: Yes Reproductive: Yes (UTERINE FIBROIDS, GENITAL HERPES) Respiratory: No Integumentary: Yes (HERPES) Migraines: Yes Schizophrenia: Yes Thyroid Disease: Yes Tetanus Vaccination: Unknown Influenza Vaccination: No ?: Not LMP: 01/2017 : 6 Para: 4 Miscarriage: 1 : 1 Tubal Ligation: Yes Past Surgical History Section: Yes (X 4) Gynecologic Surgery: Yes (TUBAL LIGATION, C-SECT X 4) Hysterectomy: Yes Other Surgery: Yes Social History Alcohol Use: Yes (occasional- used tonight ) Tobacco Use: Yes Substance Use: Yes (POWDER COCAINE-used tonight AND CRACK ) Allergies-Medications (Allergen,Severity, Reaction): Coded Allergies: trazodone (Unverified Allergy, Severe, Nausea/Vomiting, 04/03/17) haloperidol (Unverified Adverse Reaction, Intermediate, Twitching, ) Reported Meds & Prescriptions Reported Meds & Active Scripts Active Synthroid (Levothyroxine Sodium) 100 Mcg Tab 100 Mcg PO DAILY@0600 30 Days Risperidone 3 Mg Tab 3 Mg PO Q12HR Quetiapine (Quetiapine Fumarate) 400 Mg Tab 400 Mg PO HS Wellbutrin SR 12 HR (Bupropion HCl) 150 Mg Tab 150 Mg PO BID 30 Days Neurontin (Gabapentin) 300 Mg Cap 300 Mg PO BID 30 Days Naprosyn (Naproxen) 500 Mg Tab 500 Mg PO BID 30 Days Lisinopril 20 Mg Tab 20 Mg PO DAILY 30 Days Protonix (Pantoprazole Sodium) 20 Mg Tab 20 Mg PO BID Hemocyte (Ferrous Fumarate) 324 Mg Tab 325 Mg PO BIDPC Acyclovir 400 Mg Tab 400 Mg PO BID Proair Hfa 8.5 GM Inh (Albuterol Sulfate) 90 Mcg/Act Aer 2 Puff INH Q4-6H PRN 108 mcg/actuation Reported Meloxicam 7.5 Mg Tab Unknown Dose PO DAILY Vistaril (Hydroxyzine Pamoate) 50 Mg Cap 50 Mg PO BID Review of Systems General / Constitutional: No: Fever Eyes: No: Visual changes HENT: No: Headaches Cardiovascular: No: Chest Pain or Discomfort Respiratory: No: Shortness of Breath Gastrointestinal: No: Abdominal Pain Genitourinary: No: Dysuria Musculoskeletal: No: Pain Skin: No Rash Neurologic: No: Weakness Psychiatric: No: Depression Endocrine: No: Polydipsia Hematologic/Lymphatic: No: Easy Bruising Physical Exam Narrative GENERAL: Well-nourished, well-developed patient. SKIN: Focused skin assessment warm/dry. HEAD: Normocephalic. EYES: No scleral icterus. No injection or drainage. NECK: Supple, trachea midline. No JVD or lymphadenopathy. CARDIOVASCULAR: Regular rate and rhythm without murmurs, gallops, or rubs. RESPIRATORY: Breath sounds equal bilaterally. No accessory muscle use. GASTROINTESTINAL: Abdomen soft, non-tender, nondistended. MUSCULOSKELETAL: No cyanosis, or edema. BACK: Nontender without obvious deformity. No CVA tenderness. Neurologic exam normal. Data Data Last Documented VS Vital Signs Date Time Temp Pulse Resp B/P (MAP) Pulse Ox O2 Delivery O2 Flow Rate FiO2 04/03/17 23:51 97.5 82 18 136/96 (109) 97 Orders Orders Complete Blood Count With Diff (04/04/17 01:07) Comprehensive Metabolic Panel (04/04/17 01:07) Thyroid Stimulating Hormone (04/04/17 01:07) Urinalysis - C+S If Indicated (04/04/17 01:07) Electrocardiogram (04/04/17 01:07) Psych Screen (04/04/17 01:07) Drug Screen, Random Urine (04/04/17 01:07) Alcohol (Ethanol) (04/04/17 01:07) Salicylates (Aspirin) (04/04/17 01:07) Tylenol (Acetaminophen) (04/04/17 01:07) Labs Laboratory Tests Test 04/04/17 01:15 White Blood Count 3.3 TH/MM3 Red Blood Count 3.96 MIL/MM3 Hemoglobin 10.9 GM/DL Hematocrit 33.8 % Mean Corpuscular Volume 85.3 FL Mean Corpuscular Hemoglobin 27.5 PG Mean Corpuscular Hemoglobin Concent 32.2 % Red Cell Distribution Width 16.5 % Platelet Count 100 TH/MM3 Mean Platelet Volume 10.2 FL Neutrophils (%) (Auto) 70.1 % Lymphocytes (%) (Auto) 19.9 % Monocytes (%) (Auto) 8.9 % Eosinophils (%) (Auto) 0.5 % Basophils (%) (Auto) 0.6 % Neutrophils # (Auto) 2.3 TH/MM3 Lymphocytes # (Auto) 0.6 TH/MM3 Monocytes # (Auto) 0.3 TH/MM3 Eosinophils # (Auto) 0.0 TH/MM3 Basophils # (Auto) 0.0 TH/MM3 CBC Comment DIFF FINAL Differential Comment Urine Color LIGHT-YELLOW Urine Turbidity CLEAR Urine pH 6.5 Urine Specific [place] 1.005 Urine Protein NEG mg/dL Urine Glucose (UA) NEG mg/dL Urine Ketones NEG mg/dL Urine Occult Blood NEG Urine Nitrite NEG Urine Bilirubin NEG Urine Urobilinogen LESS THAN 2.0 MG/DL Urine Leukocyte Esterase NEG Urine RBC LESS THAN 1 /hpf Urine WBC 1 /hpf Urine Squamous Epithelial Cells 1 /hpf Microscopic Urinalysis Comment CULT NOT INDICATED Blood Urea Nitrogen 12 MG/DL Creatinine 1.28 MG/DL Random Glucose 109 MG/DL Total Protein 7.6 GM/DL Albumin 3.4 GM/DL Calcium Level 8.7 MG/DL Alkaline Phosphatase 91 U/L Aspartate Amino Transf (AST/SGOT) 30 U/L Alanine Aminotransferase (ALT/SGPT) 32 U/L Total Bilirubin 0.3 MG/DL Sodium Level 134 MEQ/L Potassium Level 4.4 MEQ/L Chloride Level 104 MEQ/L Carbon Dioxide Level 20.7 MEQ/L Anion Gap 9 MEQ/L Estimat Glomerular Filtration Rate 54 ML/MIN Thyroid Stimulating Hormone 3rd Gen 1.480 uIU/ML Salicylates Level 2.6 MG/DL Urine Opiates Screen NEG Acetaminophen Level LESS THAN 2.0 MCG/ML Urine Barbiturates Screen NEG Urine Amphetamines Screen NEG Urine Benzodiazepines Screen NEG Urine Cocaine Screen POS Urine Cannabinoids Screen NEG Ethyl Alcohol Level LESS THAN 3 MG/DL MDM Medical Decision Making Medical Screen Exam Complete: Yes Emergency Medical Condition: Yes Interpretation(s) 2:17 AM. CBC WBC 3.3. Hemoglobin 10.9 hematocrit 33.8. Platelet 100. 70 neutrophil. Sodium 134. Bicarbonate 20. Creatinine 1.28. Urine drug screen positive for cocaine. Acetaminophen and salicylate level normal. Alcohol negative. UA is negative. Differential Diagnosis Differential diagnosis including drug overdose, new-onset seizure, depression, suicidal, schizophrenia. Narrative Course 47-year-old female with depression and overdose on drugs and alcohol and pills. Patient has history of schizophrenia. Patient reportedly had a seizure at home tonight. No history of seizure in the past. 2:18 AM. Patient is medically cleared for psychiatric evaluation and disposition. Guillermo Vogt MD Apr 04, 2017 01:14
[2017-04-04 01:24] LABS: AUTOMATED NEUTROPHIL # 2.3 TH/MM3 (1.8-7.7); BASOPHIL % 0.6 % (0.0-2.0); EOSINOPHIL % 0.5 % (0.0-4.0); HEMATOCRIT 33.8 % (35.0-46.0); HEMO FLAGS DIFF FINAL; LYMPH % 19.9 % (9.0-44.0); LYMPHOCYTE # 0.6 TH/MM3 (1.0-4.8); MEAN CELL VOLUME 85.3 FL (80.0-100.0); MEAN CORPUSCULAR HEMOGLOBIN 27.5 PG (27.0-34.0); MEAN CORPUSCULAR HGB CONC 32.2 % (32.0-36.0); MONO % 8.9 % (0.0-8.0); NEUT % 70.1 % (16.0-70.0); PLATELET COUNT 100 TH/MM3 (150-450); RED BLOOD COUNT 3.96 MIL/MM3 (4.00-5.30); RED CELL DISTRIBUTION WIDTH 16.5 % (11.6-17.2); WHITE BLOOD COUNT 3.3 TH/MM3 (4.0-11.0)
[2017-04-04 01:25] LABS: BLOOD, URINE NEG (NEG); GLUCOSE,URINE NEG (NEG); KETONE, URINE NEG (NEG); NITRITE,URINE NEG (NEG); PH, URINE 6.5 (5.0-8.5); SQUAMOUS EPITHELIAL CELL URINE 1 /hpf (0-5); URINE COLOR LIGHT-YELLOW (YELLW/STRAW)
[2017-04-04 01:27] LABS: COMMENT (UR) CULT NOT INDICATED; COMMENT2 (UR) CULT NOT INDICATED; CULTURE IF INDICATED CULT NOT INDICATED
[2017-04-04 01:47] LABS: ALT (GPT) 32 U/L (10-53); ANION GAP 9 MEQ/L (5-15); AST (GOT) 30 U/L (15-37); BICARBONATE 20.7 MEQ/L (21.0-32.0); BLOOD UREA NITROGEN 12 MG/DL (7-18); CHLORIDE 104 MEQ/L (98-107); GLOMERULAR FILTRATION RATE 54 ML/MIN (>89); POTASSIUM 4.4 MEQ/L (3.5-5.1); SODIUM (NA) 134 MEQ/L (136-145)
[2017-04-04 01:49] LABS: ALCOHOL LESS THAN 3 MG/DL (0-5); ALKALINE PHOSPHATASE 91 U/L (45-117); TOTAL BILIRUBIN ADULT 0.3 MG/DL (0.2-1.0)
[2017-04-04 01:55] LABS: ACETAMINOPHEN LESS THAN 2.0 MCG/ML (10.0-30.0)
[2017-04-04] MEDS ORDERED: hydrOXYzine HCL 50 MG TAB PO PRN (05:00)
[2017-04-04] MEDS ORDERED: ACETAMINOPHEN 325 MG TAB PO PRN (05:00)
[2017-04-04] MEDS ORDERED: ALUMINUM/MAGNESIUM/SIMETH 30 ML CUP PO PRN (05:00)
[2017-04-04] MEDS ORDERED: MAGNESIUM HYDROXIDE SUSP 30 ML CUP PO PRN (05:00)
[2017-04-04 05:09] VITALS: BP 169/81; PULSE 87; RESP 18; TEMP 98.1; O2SAT 18; O2SAT 99
[2017-04-04 05:46] VITALS: BP 149/83; PULSE 84; RESP 17; TEMP 97.9; O2SAT 97
[2017-04-04] MEDS ORDERED: diphenhydrAMINE HCL 50 MG/ML VIAL - HS PRN IM (06:00)
[2017-04-04] MEDS ORDERED: diphenhydrAMINE HCL 50 MG CAP - HS PRN PO (06:00)
[2017-04-04] MEDS: LEVOTHYROXINE SODIUM 100 MCG TAB PO SCH (06:28)
[2017-04-04] MEDS ORDERED: ALBUTEROL SULFATE 90 MCG/ACT HFA 8 GM INHALER INH PRN (09:00)
[2017-04-04] MEDS ORDERED: PANTOPRAZOLE SOD 20 MG DELAYED RELEASE TAB PO SCH (09:00)
[2017-04-04] MEDS ORDERED: LEVOTHYROXINE SODIUM 100 MCG TAB PO SCH (09:00)
[2017-04-04] MEDS ORDERED: ACYCLOVIR 200 MG CAP PO SCH (09:00)
[2017-04-04] MEDS: FERROUS FUMARATE 325 MG TAB (106 MG ELEMENTAL IRON) PO SCH ×2 (09:00→17:25)
[2017-04-04] MEDS ORDERED: GABAPENTIN 300 MG CAP PO SCH (09:00)
[2017-04-04] MEDS: LISINOPRIL 20 MG TAB PO SCH (09:16)
[2017-04-04] MEDS: PANTOPRAZOLE SOD 20 MG DELAYED RELEASE TAB PO SCH ×2 (09:16→20:42)
[2017-04-04] MEDS: ACYCLOVIR 200 MG CAP PO SCH ×2 (09:16→20:44)
[2017-04-04] MEDS: risperiDONE 3 MG TAB PO SCH ×2 (09:16→20:42)
[2017-04-04] MEDS: GABAPENTIN 300 MG CAP PO SCH ×2 (09:16→20:41)
[2017-04-04] MEDS: buPROPion HCL 150 MG SUSTAINED RELEASE TAB PO SCH ×2 (09:16→20:42)
--- NOTE | 2017-04-04 11:50 | PD.CONS ---
HPI Service [facility] Consult Requested By DR AGUDELO Reason for Consult ABNORMAL LABS HELP WITH HYPERTENSION Primary Care Physician No Primary Care Physician Diagnoses: History of Present Illness 47-year-old female was brought in by EMS after a seizure at home. Patient states that she was doing alcohol and cocaine and some pills that she does not know the name of. Patient states that her boyfriend states that she had a seizure and passed out subsequently. Patient denies any injury during the episode. Patient states that she was depressed and tried to kill herself by taking the substance. Patient has history of schizophrenia and has not been on her medication the condition. Patient states that she is out of her medication for the past 3 weeks. Patient denies any today. Patient denies any chest pain or shortness of breath. Patient denies abdominal pain. Patient denies any focal weakness or numbness of extremity. 11 we have been consult it to help with her abnormal labs and hypertension We'll adjust medications. Have discussed with patient and RN and psychiatry Recommend cocaine and alcohol cessation We'll follow Review of Systems Constitutional: DENIES: Diaphoretic episodes, Fatigue, Fever, Weight gain, Weight loss, Chills, Dizziness Endocrine: DENIES: Abnorml menstrual pattern, Heat/cold intolerance Eyes: DENIES: Blurred vision, Diplopia, Eye inflammation Ears, nose, mouth, throat: DENIES: Tinnitus, Hearing loss, Vertigo, Nasal discharge, Odynophagia Respiratory: DENIES: Apneas, Cough, Snoring, Wheezing, Hemoptysis Cardiovascular: DENIES: Chest pain, Palpitations, Syncope, Dyspnea on Exertion Gastrointestinal: DENIES: Abdominal pain, Black stools, Bloody stools, Constipation Genitourinary: DENIES: Abnormal vaginal bleeding Musculoskeletal: DENIES: Joint pain, Muscle aches, Stiffness Integumentary: DENIES: Abnormal pigmentation, Pruritus, Rash Hematologic/lymphatic: DENIES: Bruising, Lymphadenopathy Immunologic/allergic: DENIES: Eczema Neurologic: DENIES: Abnormal gait, Headache, Localized weakness Psychiatric: COMPLAINS OF: Anxiety, Depression, Agitation, DENIES: Confusion, Mood changes Past Family Social History Allergies: Coded Allergies: trazodone (Unverified Allergy, Severe, Nausea/Vomiting, 04/03/17) haloperidol (Unverified Adverse Reaction, Intermediate, Twitching, ) Past Medical History Hypothyroidism Hypertension Obesity Uterine fibroids Genital herpes Arthritis Anxiety depression Bipolar psychiatric disorder PTSD Past Surgical History Tubal ligation and sections 4 Reported Medications Reported Meds & Active Scripts Active Synthroid (Levothyroxine Sodium) 100 Mcg Tab 100 Mcg PO DAILY@0600 30 Days Risperidone 3 Mg Tab 3 Mg PO Q12HR Quetiapine (Quetiapine Fumarate) 400 Mg Tab 400 Mg PO HS Wellbutrin SR 12 HR (Bupropion HCl) 150 Mg Tab 150 Mg PO BID 30 Days Neurontin (Gabapentin) 300 Mg Cap 300 Mg PO BID 30 Days Naprosyn (Naproxen) 500 Mg Tab 500 Mg PO BID 30 Days Lisinopril 20 Mg Tab 20 Mg PO DAILY 30 Days Protonix (Pantoprazole Sodium) 20 Mg Tab 20 Mg PO BID Hemocyte (Ferrous Fumarate) 324 Mg Tab 325 Mg PO BIDPC Acyclovir 400 Mg Tab 400 Mg PO BID Proair Hfa 8.5 GM Inh (Albuterol Sulfate) 90 Mcg/Act Aer 2 Puff INH Q4-6H PRN 108 mcg/actuation Reported Meloxicam 7.5 Mg Tab Unknown Dose PO DAILY Vistaril (Hydroxyzine Pamoate) 50 Mg Cap 50 Mg PO BID Active Ordered Medications Current Medications Hydroxyzine HCl (Atarax) 50 mg Q6H PRN PO ANXIETY; Start 04/04/17 at 05:00 Acetaminophen (Tylenol) 650 mg Q4H PRN PO Pain 1-5 or Temp >101F Last administered on 04/04/17 06:29; Start 04/04/17 at 05:00 Magnesium Hydroxide (Milk Of Magnesia Liq) 30 ml DAILY PRN PO CONSTIPATION; Start 04/04/17 at 05:00 Al Hydrox/Mg Hydrox/Simethicone (Mag-Al Plus Susp Liq) 30 ml Q6H PRN PO DYSPEPSIA; Start 04/04/17 at 05:00 Acyclovir (Zovirax) 400 mg BID PO Last administered on 04/04/17 09:16; Start 04/04/17 at 09:00 Pantoprazole Sodium (Protonix) 20 mg BID PO Last administered on 04/04/17 09: 16; Start 04/04/17 at 09:00 Lisinopril (Prinivil) 20 mg DAILY PO Last administered on 04/04/17 09:16; Start 04/04/17 at 09:00 Gabapentin (Neurontin) 300 mg BID PO Last administered on 04/04/17 09:16; Start 04/04/17 at 09:00 Bupropion HCl (Wellbutrin Sr) 150 mg BID PO Last administered on 04/04/17 09: 16; Start 04/04/17 at 09:00 Quetiapine Fumarate (SEROquel) 400 mg HS PO ; Start 04/04/17 at 21:00 Risperidone (risperDAL) 3 mg Q12HR PO Last administered on 04/04/17 09:16; Start 04/04/17 at 09:00 Levothyroxine Sodium (Synthroid) 100 mcg DAILY@0600 PO Last administered on 06:28; Start 04/04/17 at 06:00 Diphenhydramine HCl (Benadryl) 50 mg HS PRN PO INSOMNIA; Start 04/04/17 at 06: 00 Diphenhydramine HCl (Benadryl Inj) 50 mg HS PRN IM INSOMNIA; Start 04/04/17 at 06:00 Pneumococcal Polyvalent Vaccine (Pneumovax-23 Inj) 25 mcg ONCE ONCE IM ; Start 04/05/17 at 10:00; Stop 04/05/17 at 10:01 Acyclovir (Zovirax) 400 mg BID PO ; Start 04/04/17 at 09:00; Stop 04/04/17 at 09:56; Status DC Albuterol Sulfate (Proair Hfa Inh) 2 puff Q6H PRN INH SOB/WHEEZING; Start at 09:00 Ferrous Fumarate (Hemocyte) 325 mg BIDPC PO ; Start 04/04/17 at 09:00 Gabapentin (Neurontin) 300 mg BID PO ; Start 04/04/17 at 09:00; Stop 04/04/17 at 09:56; Status DC Levothyroxine Sodium (Synthroid) 100 mcg DAILY@0600 PO ; Start 04/04/17 at 09: 00; Stop 04/04/17 at 09:57; Status DC Pantoprazole Sodium (Protonix) 20 mg BID PO ; Start 04/04/17 at 09:00; Stop at 09:57; Status DC Family History Probable hypertension possible diabetes Social History Drinks alcohol on occasion Smokes marijuana on occasion Uses cocaine Smoke cigarettes Physical Exam Vital Signs Vital Signs Date Time Temp Pulse Resp B/P (MAP) Pulse Ox O2 Delivery O2 Flow Rate FiO2 04/04/17 05:46 97.9 84 17 149/83 (105) 97 04/04/17 05:09 98.1 87 18 169/81 (110) 99 Room Air 04/03/17 23:51 97.5 82 18 136/96 (109) 97 Physical Exam GENERAL: This is a well-nourished, well-developed patient, in no apparent distress. Obese female SKIN: No rashes, ecchymoses or lesions. Cool and dry. HEAD: Atraumatic. Normocephalic. No temporal or scalp tenderness. EYES: Pupils equal round and reactive. Extraocular motions intact. No scleral icterus. No injection or drainage. ENT: Nose without bleeding, purulent drainage or septal hematoma. Throat without erythema, tonsillar hypertrophy or exudate. Uvula midline. Airway patent. Tongue is midline NECK: Trachea midline. No JVD or lymphadenopathy. Supple, nontender, no meningeal signs. CARDIOVASCULAR: Regular rate and rhythm without murmurs, gallops, or rubs. S1 and S2 no S3 or S4 RESPIRATORY: Clear to auscultation. Breath sounds equal bilaterally. No wheezes , rales, or rhonchi. GASTROINTESTINAL: Abdomen soft, non-tender, nondistended. No hepato-splenomegaly , or palpable masses. No guarding. Obese MUSCULOSKELETAL: Extremities without clubbing, cyanosis, or edema. No joint tenderness, effusion, or edema noted. No calf tenderness. Negative Homans sign bilaterally. NEUROLOGICAL: Awake and alert. Cranial nerves II through XII intact. Motor and sensory grossly within normal limits. Five out of 5 muscle strength in all muscle groups. Normal speech. Insight and judgment is limited Mood and behavior is somewhat appropriate at this time Laboratory Laboratory Tests Test 04/04/17 01:15 White Blood Count 3.3 Red Blood Count 3.96 Hemoglobin 10.9 Hematocrit 33.8 Mean Corpuscular Volume 85.3 Mean Corpuscular Hemoglobin 27.5 Mean Corpuscular Hemoglobin Concent 32.2 Red Cell Distribution Width 16.5 Platelet Count 100 Mean Platelet Volume 10.2 Neutrophils (%) (Auto) 70.1 Lymphocytes (%) (Auto) 19.9 Monocytes (%) (Auto) 8.9 Eosinophils (%) (Auto) 0.5 Basophils (%) (Auto) 0.6 Neutrophils # (Auto) 2.3 Lymphocytes # (Auto) 0.6 Monocytes # (Auto) 0.3 Eosinophils # (Auto) 0.0 Basophils # (Auto) 0.0 CBC Comment DIFF FINAL Differential Comment Urine Color LIGHT-YELLOW Urine Turbidity CLEAR Urine pH 6.5 Urine Specific [place] 1.005 Urine Protein NEG Urine Glucose (UA) NEG Urine Ketones NEG Urine Occult Blood NEG Urine Nitrite NEG Urine Bilirubin NEG Urine Urobilinogen LESS THAN 2.0 Urine Leukocyte Esterase NEG Urine RBC LESS THAN 1 Urine WBC 1 Urine Squamous Epithelial Cells 1 Microscopic Urinalysis Comment CULT NOT INDICATED Blood Urea Nitrogen 12 Creatinine 1.28 Random Glucose 109 Total Protein 7.6 Albumin 3.4 Calcium Level 8.7 Alkaline Phosphatase 91 Aspartate Amino Transf (AST/SGOT) 30 Alanine Aminotransferase (ALT/SGPT) 32 Total Bilirubin 0.3 Sodium Level 134 Potassium Level 4.4 Chloride Level 104 Carbon Dioxide Level 20.7 Anion Gap 9 Estimat Glomerular Filtration Rate 54 Thyroid Stimulating Hormone 3rd Gen 1.480 Salicylates Level 2.6 Urine Opiates Screen NEG Acetaminophen Level LESS THAN 2.0 Urine Barbiturates Screen NEG Urine Amphetamines Screen NEG Urine Benzodiazepines Screen NEG Urine Cocaine Screen POS Urine Cannabinoids Screen NEG Ethyl Alcohol Level LESS THAN 3 Result Diagram: 04/04/1711404/04/17114 Assessment and Plan Assessment and Plan Psychiatric disorder will defer to psychiatry Hypertension adjust medications Hypothyroidism resume home medications and check a TSH and free T4 GERD continue on PPI Anemia continue on Hemocyte Osteoarthritis pain on chronic NSAIDs will hold at this time Renal insufficiency may be due to ARB versus substance use will recheck labs Chronic genital herpes continue on acyclovir twice a day Weight loss recommended for her obesity Cocaine abuse cessation recommended Tobacco abuse cessation recommended Alcohol abuse cessation recommended Medical compliance recommended A.m. labs will continue to follow check TSH free T4 hemoglobin A1c magnesium and phosphorus will have Catapres available as needed for elevated blood pressure Code Status Full code Discussed Condition With Discussed with psychiatry and RN and patient Wallace Peralta DO Apr 04, 2017 11:50
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
--- NOTE | 2017-04-04 16:24 | EKG ---
Date Performed: 04/03/2017 Time Performed: 23:52:34 PTAGE: 47 years EKG: Sinus rhythm NORMAL ECG Since PREVIOUS TRACING , no significant change noted PREVIOUS TRACIN01/12/2017 11.29 DOCTOR: Gabriela Torre Interpretating Date/Time 04/04/2017 16:23:21
[2017-04-04 18:47] VITALS: BP 126/60; PULSE 86; RESP 18; TEMP 98.5; O2SAT 100
[2017-04-04] MEDS: QUEtiapine FUMARATE 200 MG TAB PO SCH (20:42)
[2017-04-05] MEDS: LEVOTHYROXINE SODIUM 100 MCG TAB PO SCH (05:07)
[2017-04-05 05:44] VITALS: BP 112/55; PULSE 79; RESP 18; TEMP 98.4; O2SAT 98
[2017-04-05] MEDS ORDERED: LORazepam 1 MG TAB PO PRN (06:30)
[2017-04-05] MEDS ORDERED: LORazepam 2 MG TAB PO PRN (06:30)
[2017-04-05] MEDS ORDERED: LORazepam 2 MG/ML VIAL IV PUSH PRN ×4 (06:30)
[2017-04-05] MEDS ORDERED: FLUMAZENIL 0.5 MG/5 ML VIAL IV PUSH PRN (06:30)
[2017-04-05] MEDS: GABAPENTIN 300 MG CAP PO SCH ×2 (08:46→20:53)
[2017-04-05] MEDS: LISINOPRIL 20 MG TAB PO SCH (08:46)
[2017-04-05] MEDS: FERROUS FUMARATE 325 MG TAB (106 MG ELEMENTAL IRON) PO SCH ×2 (08:46→18:00)
[2017-04-05] MEDS: PANTOPRAZOLE SOD 20 MG DELAYED RELEASE TAB PO SCH ×2 (08:46→20:54)
[2017-04-05] MEDS: ACYCLOVIR 200 MG CAP PO SCH ×2 (08:46→20:54)
[2017-04-05] MEDS: risperiDONE 3 MG TAB PO SCH ×2 (08:46→20:54)
[2017-04-05] MEDS: buPROPion HCL 150 MG SUSTAINED RELEASE TAB PO SCH ×2 (08:46→20:54)
[2017-04-05] MEDS ORDERED: PNEUMOCOCCAL POLYVALENT INJ 25 MCG/0.5 ML SYR IM ONE (10:00)
--- NOTE | 2017-04-05 14:55 | HHI.PYPN ---
Subjective Remarks Patient seen for follow-up, chart reviewed. Discussed with nursing staff reported the patient has been seclusive, declined to go to groups, and has not been aggressive with supple. Patient found in the area participating in ice cream social group therapy, cooperative interview today. Patient states that she discussed eating well, what is it okay, but continues report having auditory hallucinations commanding her to kill herself. Patient states that she continues to have suicidal ideations and has no reason to live at this time. Patient acknowledges importance of her sobriety as patient had recent intoxication with cocaine and noncompliant with her treatment. Patient this time is amenable to consideration of sober living facilities as well as to maintain sobriety along with continue treatment as an outpatient once psychiatrically stable. Patient at this time continues to endorse suicidal ideations, denies HI, continues to endorse command auditory hallucinations to kill herself, denies any visual perceptions, denies delusions. Review of Systems Except as stated in HPI: all other systems reviewed are Neg Mental Status Examination Appearance: Disheveled Consciousness: Alert Orientation: Person, Place, Date/Time Speech: Slow Language: Adequate Fund of Knowledge: Inadequate Attention and Concentration: Inadequate Memory: Unremarkable Mood: Sad Affect: Blunt Thought Process & Associations: Linear Thought Content: Hallucinations, Delusional Hallucination Type: Auditory, Command Delusion Type: Paranoid Suicidal Ideation: Yes Suicidal Plan: No Suicidal Intention: No Homicidal Ideation: No Homicidal Plan: No Homicidal Intention: No Insight: Poor Judgment: Poor Results Vitals/IOs Vital Signs Date Time Temp Pulse Resp B/P (MAP) Pulse Ox O2 Delivery O2 Flow Rate FiO2 04/05/17 05:44 98.4 79 18 112/55 (74) 98 04/04/17 05:09 Room Air Intake and Output 04/05/17 04/05/17 04/06/17 08:00 16:00 00:00 Intake Total 360 ml Balance 360 ml Assessment & Plan Problem List: (1) Schizoaffective disorder, bipolar type ICD Codes: F25.0 - Schizoaffective disorder, bipolar type Status: Acute Assessment & Plan Patient this time continues endorse depressed mood along with suicidal ideations and command auditory hallucinations to kill herself. Patient noted to be more interactive with staff did attend groups today and compliant with medications. Will continue current treatment for now as patient just restarted her regimen yesterday. Continue to monitor mood and behavior. Continue to encourage patient to maintain personal hygiene and participate in groups and activities. Patient agrees to look into resources as far sober living facilities. Patient reported provided with a packet for resources. Continue recommendations as per primary medical team. Discharge planning in progress Justification for Cont. Inpt. At risk for decompensation at lower level of care Discharge Planning Possible the patient be discharged or sober living facility once psychiatrically stable. Sylvain Gregorio MD Apr 05, 2017 14:55
[2017-04-05 17:42] VITALS: BP 133/71; PULSE 91; RESP 18; TEMP 98.3; O2SAT 98
[2017-04-05] MEDS: QUEtiapine FUMARATE 200 MG TAB PO SCH (20:54)
[2017-04-06] MEDS: LEVOTHYROXINE SODIUM 100 MCG TAB PO SCH (05:51)
[2017-04-06 06:01] VITALS: BP 115/58; PULSE 85; RESP 18; TEMP 98.5; O2SAT 99
[2017-04-06 08:42] LABS: AUTOMATED NEUTROPHIL # 1.4 TH/MM3 (1.8-7.7); BASOPHIL # 0.1 TH/MM3 (0-0.2); BASOPHIL % 2.9 % (0.0-2.0); EOSINOPHIL # 0.1 TH/MM3 (0-0.4); HEMATOCRIT 39.2 % (35.0-46.0); HEMO FLAGS DIFF FINAL; LYMPH % 37.7 % (9.0-44.0); LYMPHOCYTE # 1.3 TH/MM3 (1.0-4.8); MEAN CELL VOLUME 85.9 FL (80.0-100.0); MEAN CORPUSCULAR HGB CONC 32.6 % (32.0-36.0); MONO % 15.5 % (0.0-8.0); NEUT % 41.9 % (16.0-70.0); PLATELET COUNT 235 TH/MM3 (150-450); RED BLOOD COUNT 4.57 MIL/MM3 (4.00-5.30); RED CELL DISTRIBUTION WIDTH 16.7 % (11.6-17.2); WHITE BLOOD COUNT 3.3 TH/MM3 (4.0-11.0)
[2017-04-06] MEDS: GABAPENTIN 300 MG CAP PO SCH ×2 (08:55→20:26)
[2017-04-06] MEDS: FERROUS FUMARATE 325 MG TAB (106 MG ELEMENTAL IRON) PO SCH ×2 (08:55→17:39)
[2017-04-06] MEDS: LISINOPRIL 20 MG TAB PO SCH (08:56)
[2017-04-06] MEDS: PANTOPRAZOLE SOD 20 MG DELAYED RELEASE TAB PO SCH ×2 (08:57→20:26)
[2017-04-06] MEDS: risperiDONE 3 MG TAB PO SCH ×2 (08:57→20:26)
[2017-04-06] MEDS: ACYCLOVIR 200 MG CAP PO SCH ×2 (08:58→20:26)
[2017-04-06] MEDS: buPROPion HCL 150 MG SUSTAINED RELEASE TAB PO SCH ×2 (09:00→20:26)
[2017-04-06 09:14] LABS: ANION GAP 10 MEQ/L (5-15); AST (GOT) 15 U/L (15-37); BICARBONATE 23.3 MEQ/L (21.0-32.0); BLOOD UREA NITROGEN 17 MG/DL (7-18); CHLORIDE 105 MEQ/L (98-107); GLOMERULAR FILTRATION RATE 49 ML/MIN (>89); MAGNESIUM 1.9 MG/DL (1.5-2.5); POTASSIUM 3.8 MEQ/L (3.5-5.1); SODIUM (NA) 138 MEQ/L (136-145)
[2017-04-06 09:42] LABS: ALKALINE PHOSPHATASE 94 U/L (45-117); ALT (GPT) 24 U/L (10-53); CREATINE KINASE 111 U/L (26-192); FREE T4 0.88 NG/DL (0.76-1.46); HDL CHOLESTEROL 51.9 MG/DL (40.0-60.0); LDL CHOLESTEROL 90 MG/DL (0-99); TOTAL BILIRUBIN ADULT 0.2 MG/DL (0.2-1.0); URIC ACID 7.5 MG/DL (2.6-6.0)
--- NOTE | 2017-04-06 13:57 | HHI.PYPN ---
Subjective Remarks Pt seen and discussed with staff. She is compliant with medications and denies side effects. She denies SI/HI today. she c/o of persistent command AH and reports that mood is depressed. She processed substance abuse with RN and is contemplating entering into sober living facility. Mental Status Examination Appearance: Disheveled Consciousness: Alert Orientation: Person, Place, Date/Time Speech: Slow Language: Adequate Fund of Knowledge: Inadequate Attention and Concentration: Inadequate Memory: Unremarkable Mood: Sad Affect: Blunt Thought Process & Associations: Linear Thought Content: Hallucinations, Delusional Hallucination Type: Auditory, Command Delusion Type: Paranoid Suicidal Ideation: Yes (command hallucinations) Suicidal Plan: No Suicidal Intention: No Homicidal Ideation: No Homicidal Plan: No Homicidal Intention: No Insight: Poor Judgment: Poor Results Labs Test 04/06/17 07:36 White Blood Count 3.3 TH/MM3 Red Blood Count 4.57 MIL/MM3 Hemoglobin 12.8 GM/DL Hematocrit 39.2 % Mean Corpuscular Volume 85.9 FL Mean Corpuscular Hemoglobin 28.0 PG Mean Corpuscular Hemoglobin Concent 32.6 % Red Cell Distribution Width 16.7 % Platelet Count 235 TH/MM3 Mean Platelet Volume 9.8 FL Neutrophils (%) (Auto) 41.9 % Lymphocytes (%) (Auto) 37.7 % Monocytes (%) (Auto) 15.5 % Eosinophils (%) (Auto) 2.0 % Basophils (%) (Auto) 2.9 % Neutrophils # (Auto) 1.4 TH/MM3 Lymphocytes # (Auto) 1.3 TH/MM3 Monocytes # (Auto) 0.5 TH/MM3 Eosinophils # (Auto) 0.1 TH/MM3 Basophils # (Auto) 0.1 TH/MM3 CBC Comment DIFF FINAL Differential Comment Blood Urea Nitrogen 17 MG/DL Creatinine 1.39 MG/DL Random Glucose 96 MG/DL Total Protein 7.8 GM/DL Albumin 3.2 GM/DL Calcium Level 9.0 MG/DL Phosphorus Level 3.9 MG/DL Magnesium Level 1.9 MG/DL Uric Acid 7.5 MG/DL Alkaline Phosphatase 94 U/L Aspartate Amino Transf (AST/SGOT) 15 U/L Alanine Aminotransferase (ALT/SGPT) 24 U/L Total Bilirubin 0.2 MG/DL Sodium Level 138 MEQ/L Potassium Level 3.8 MEQ/L Chloride Level 105 MEQ/L Carbon Dioxide Level 23.3 MEQ/L Anion Gap 10 MEQ/L Estimat Glomerular Filtration Rate 49 ML/MIN Total Creatine Kinase 111 U/L Triglycerides Level 243 MG/DL Cholesterol Level 190 MG/DL LDL Cholesterol 90 MG/DL HDL Cholesterol 51.9 MG/DL Cholesterol/HDL Ratio 3.66 RATIO Vitamin B12 Level 1256 PG/ML 25-Hydroxy Vitamin D Total 13.0 ng/ML Free Thyroxine 0.88 NG/DL Thyroid Stimulating Hormone 3rd Gen 3.910 uIU/ML Vitals/IOs Vital Signs Date Time Temp Pulse Resp B/P (MAP) Pulse Ox O2 Delivery O2 Flow Rate FiO2 04/06/17 06:01 98.5 85 18 115/58 (77) 99 04/04/17 05:09 Room Air Assessment & Plan Problem List: (1) Schizoaffective disorder, bipolar type ICD Codes: F25.0 - Schizoaffective disorder, bipolar type Status: Acute Assessment & Plan Continue current tx plan. Estimated LOS: days Justification for Cont. Inpt. impairments in reality testing. Alina Henson MD Apr 06, 2017 13:57
[2017-04-06 17:28] VITALS: BP 135/88; PULSE 83; RESP 20; TEMP 98.4; O2SAT 99
[2017-04-06] MEDS: QUEtiapine FUMARATE 200 MG TAB PO SCH (20:26)
[2017-04-07] MEDS: LEVOTHYROXINE SODIUM 100 MCG TAB PO SCH (05:50)
[2017-04-07 06:04] VITALS: BP 120/63; PULSE 87; RESP 17; TEMP 97.4; O2SAT 100
[2017-04-07] MEDS: CHOLECALCIFEROL (VIT D3) 1000 UNIT TAB PO SCH (09:00)
[2017-04-07] MEDS: PANTOPRAZOLE SOD 20 MG DELAYED RELEASE TAB PO SCH ×2 (09:00→20:41)
[2017-04-07] MEDS: LISINOPRIL 20 MG TAB PO SCH (09:00)
[2017-04-07] MEDS: ALLOPURINOL 100 MG TAB PO SCH (09:00)
[2017-04-07] MEDS: FERROUS FUMARATE 325 MG TAB (106 MG ELEMENTAL IRON) PO SCH ×2 (09:00→16:56)
[2017-04-07] MEDS: risperiDONE 3 MG TAB PO SCH ×2 (09:00→20:41)
[2017-04-07] MEDS: ACYCLOVIR 200 MG CAP PO SCH ×2 (09:00→20:41)
[2017-04-07] MEDS: buPROPion HCL 150 MG SUSTAINED RELEASE TAB PO SCH ×2 (09:00→20:41)
[2017-04-07] MEDS: GABAPENTIN 300 MG CAP PO SCH ×2 (09:00→20:41)
[2017-04-07 09:39] LABS: HEMOGLOBIN A1b 0.9 %; HEMOGLOBIN Ao 84.5 %; HEMOGLOBIN F 1.1 %; HEMOGLOBIN P3 3.9 %
--- NOTE | 2017-04-07 13:08 | HHI.PYPN ---
Subjective Remarks Pt seen and discussed with staff. AH have increased and pt has been stuffing paper in her ears trying to mitigate the voices and resultant agitation. Pt was given risperidone ODT 0.5mg PO x1 for agitation due to psychosis which she tolerated without side effects. Mental Status Examination Appearance: Disheveled Consciousness: Alert Orientation: Person, Place, Date/Time Speech: Slow Language: Adequate Fund of Knowledge: Inadequate Attention and Concentration: Inadequate Memory: Unremarkable Mood: Sad Affect: Blunt Thought Process & Associations: Linear Thought Content: Hallucinations, Delusional Hallucination Type: Auditory, Command Delusion Type: Paranoid Suicidal Ideation: Yes (command hallucinations) Suicidal Plan: No Suicidal Intention: No Homicidal Ideation: No Homicidal Plan: No Homicidal Intention: No Insight: Poor Judgment: Poor Results Vitals/IOs Vital Signs Date Time Temp Pulse Resp B/P (MAP) Pulse Ox O2 Delivery O2 Flow Rate FiO2 04/07/17 06:04 97.4 87 17 120/63 (82) 100 04/04/17 05:09 Room Air Assessment & Plan Problem List: (1) Schizoaffective disorder, bipolar type ICD Codes: F25.0 - Schizoaffective disorder, bipolar type Status: Acute Assessment & Plan Titrate seroquel to target psychosis. Estimated LOS: days Justification for Cont. Inpt. impairments in safety and reality testing Alina Henson MD Apr 07, 2017 13:08
[2017-04-07 18:23] VITALS: BP 82/46; PULSE 90; RESP 18; TEMP 98.3; O2SAT 100
[2017-04-07] MEDS: QUEtiapine FUMARATE 200 MG TAB PO SCH (20:40)
[2017-04-08] MEDS: LEVOTHYROXINE SODIUM 100 MCG TAB PO SCH (06:00)
[2017-04-08 06:38] VITALS: BP 92/54; PULSE 94; RESP 17; TEMP 98.2; O2SAT 100
[2017-04-08] MEDS ORDERED: QUEtiapine FUMARATE 25 MG TAB PO SCH (09:00)
[2017-04-08] MEDS: ACYCLOVIR 200 MG CAP PO SCH ×2 (09:17→20:53)
[2017-04-08] MEDS: PANTOPRAZOLE SOD 20 MG DELAYED RELEASE TAB PO SCH ×2 (09:17→20:52)
[2017-04-08] MEDS: ALLOPURINOL 100 MG TAB PO SCH (09:17)
[2017-04-08] MEDS: GABAPENTIN 300 MG CAP PO SCH ×2 (09:17→20:53)
[2017-04-08] MEDS: CHOLECALCIFEROL (VIT D3) 1000 UNIT TAB PO SCH (09:17)
[2017-04-08] MEDS: buPROPion HCL 150 MG SUSTAINED RELEASE TAB PO SCH ×2 (09:17→20:51)
[2017-04-08] MEDS: risperiDONE 3 MG TAB PO SCH ×2 (09:17→20:53)
[2017-04-08] MEDS: FERROUS FUMARATE 325 MG TAB (106 MG ELEMENTAL IRON) PO SCH ×2 (09:18→17:16)
[2017-04-08] MEDS: LISINOPRIL 20 MG TAB PO SCH (09:18)
--- NOTE | 2017-04-08 11:21 | PD.TTN ---
Patient Problems 1. Discharge planning 2. Medication compliance 3. Knowledge deficit 4. Lack of coping skills Progress Toward Goals Provider Present: Dr. Ashley Gregorio Provider Input: Pt is medication regiment and it is being reviewed. Treatment for substance abuse will also be suggested. Nurse(s) Present: Doug Jackson RN Nurse(s) Input: Pt has been eating her food, is medication compilant, seclusive, withdrawn and flat. Psychiatric Counselors Present: MICHELLE Garcia Psych Therapist Input: Pt continues to appear somewhat depressed, withdrawn and isolative. She discusses her desire to obtain some treatment for her addiction though her dedication to obtain treatment is unknown. She appears to be utilizing some level of coping and emotional regulation skills as she has had no outbursts but appears to be coping poorly by withdrawing on unit. Pt is compliant with medication regiment. She presents with limited insight into condition and need for care. Group Spec/RT/OT/VILLAR Present: AUREA Bernard Group Spec/RT/OT/VILLAR Input: Pt only attends ice cream group and will be encouraged to participate more in unit activities. Discharge Plan SMA Pt will be referred to sober living homes but also may return to her boyfriend' s home as she has typically after previous discharges. She will be set up with outpatient follow up services as well. Christiano Garner SCOTT Apr 08, 2017 11:21
--- NOTE | 2017-04-08 13:44 | HHI.PYPN ---
Subjective Remarks The patient seen for follow-up, chart reviewed. Nutritional sister reported the patient to comply her medications but has mostly in her room asleep. Patient found lying in hospital bed, cooperative stating that she is feeling very somnolent believes that it is due to her medications. Patient states he is feeling terrible and feels some dizziness when she stands up to walk. Patient continues to endorse auditory hallucinations but states that she's always had auditory hallucinations in which she has been decreased in intensity and frequency when in treatment. Patient was noted to have paper in her ears stating that this is to help keep the voices out. Patient denies any suicidal homicidal ideations at this time or delusions. Patient stated that she is interested in sober living facility postdischarge and is willing to call to inform herself of this possibility. Review of Systems Except as stated in HPI: all other systems reviewed are Neg Mental Status Examination Appearance: Disheveled Consciousness: Alert Orientation: Person, Place, Date/Time Speech: Slow Language: Adequate Fund of Knowledge: Inadequate Attention and Concentration: Inadequate Memory: Unremarkable Mood: Other ("terrible ") Affect: Blunt Thought Process & Associations: Linear Thought Content: Hallucinations, Delusional Hallucination Type: Auditory, Command Delusion Type: Paranoid Suicidal Ideation: Yes (command hallucinations) Suicidal Plan: No Suicidal Intention: No Homicidal Ideation: No Homicidal Plan: No Homicidal Intention: No Insight: Poor Judgment: Poor Results Vitals/IOs Vital Signs Date Time Temp Pulse Resp B/P (MAP) Pulse Ox O2 Delivery O2 Flow Rate FiO2 04/08/17 06:38 98.2 94 17 92/54 (67) 100 Assessment & Plan Problem List: (1) Schizoaffective disorder, bipolar type ICD Codes: F25.0 - Schizoaffective disorder, bipolar type Status: Acute Assessment & Plan Patient this time continues to endorse auditory hallucinations Lessened her current treatment regimen but states that she is feeling too sedated and dizzy when she stands up to walk around. Patient is noted to be somewhat somnolent during interview. Will attempt to decrease quetiapine to 350 mg by mouth at bedtime and discontinue 50 mg by mouth daily as this patient likely having orthostatic hypotension. Will continue risperidone 3 mg by mouth twice a day for psychosis. Patient encouraged to continue participating in groups and activities. It is possible the patient has ever had cessation of auditory hallucination but has been improved with current treatment or she is able to tolerate the auditory hallucinations and not be intrusive. Patient amenable to sober living facility postdischarge. Patient will be provided with several living information a packet and she agrees to initiate this process. Continue recommendations as per primary medical team. Discharge planning in progress Justification for Cont. Inpt. At risk for further decompensation if at lower level of care. Discharge Planning Patient possibly being discharged to sober living facility or [facility] [place] [facility]. Sylvain Gregorio MD Apr 08, 2017 13:44
[2017-04-08] MEDS ORDERED: PILL SPLITTER OTHER PRN (13:45)
[2017-04-08 17:37] VITALS: BP 107/57; PULSE 18; RESP 18; O2SAT 100
[2017-04-08] MEDS ORDERED: QUEtiapine FUMARATE 100 MG TAB PO SCH (21:00)
[2017-04-08] MEDS ORDERED: QUEtiapine FUMARATE 200 MG TAB PO SCH (21:00)
[2017-04-09 05:40] VITALS: BP 114/60; PULSE 93; RESP 16; TEMP 98.4; O2SAT 100
[2017-04-09] MEDS: LEVOTHYROXINE SODIUM 100 MCG TAB PO SCH (05:57)
[2017-04-09 08:39] LABS: BASOPHIL % 0.8 % (0.0-2.0); EOSINOPHIL % 0.9 % (0.0-4.0); HEMO FLAGS DIFF FINAL; LYMPH % 31.9 % (9.0-44.0); LYMPHOCYTE # 1.2 TH/MM3 (1.0-4.8); MEAN CELL VOLUME 86.1 FL (80.0-100.0); MEAN CORPUSCULAR HEMOGLOBIN 28.3 PG (27.0-34.0); MEAN CORPUSCULAR HGB CONC 32.8 % (32.0-36.0); MONO % 14.8 % (0.0-8.0); NEUT % 51.6 % (16.0-70.0); PLATELET COUNT 240 TH/MM3 (150-450); RED BLOOD COUNT 3.84 MIL/MM3 (4.00-5.30); RED CELL DISTRIBUTION WIDTH 16.4 % (11.6-17.2); WHITE BLOOD COUNT 3.9 TH/MM3 (4.0-11.0)
[2017-04-09] MEDS: LISINOPRIL 20 MG TAB PO SCH (09:00)
[2017-04-09 09:09] LABS: AST (GOT) 23 U/L (15-37); BICARBONATE 26.8 MEQ/L (21.0-32.0); BLOOD UREA NITROGEN 23 MG/DL (7-18); GLOMERULAR FILTRATION RATE 43 ML/MIN (>89)
[2017-04-09 09:10] LABS: ALT (GPT) 32 U/L (10-53)
[2017-04-09 09:27] LABS: ALKALINE PHOSPHATASE 90 U/L (45-117); TOTAL BILIRUBIN ADULT 0.2 MG/DL (0.2-1.0)
[2017-04-09 09:30] LABS: ANION GAP 8 MEQ/L (5-15); CHLORIDE 103 MEQ/L (98-107); SODIUM (NA) 138 MEQ/L (136-145)
[2017-04-09] MEDS: risperiDONE 3 MG TAB PO SCH ×2 (09:49→21:00)
[2017-04-09] MEDS: GABAPENTIN 300 MG CAP PO SCH ×2 (09:49→21:00)
[2017-04-09] MEDS: CHOLECALCIFEROL (VIT D3) 1000 UNIT TAB PO SCH (09:49)
[2017-04-09] MEDS: ACYCLOVIR 200 MG CAP PO SCH ×2 (09:49→21:00)
[2017-04-09] MEDS: ALLOPURINOL 100 MG TAB PO SCH (09:49)
[2017-04-09] MEDS: FERROUS FUMARATE 325 MG TAB (106 MG ELEMENTAL IRON) PO SCH ×2 (09:49→17:11)
[2017-04-09] MEDS: buPROPion HCL 150 MG SUSTAINED RELEASE TAB PO SCH ×2 (09:49→21:00)
[2017-04-09] MEDS: PANTOPRAZOLE SOD 20 MG DELAYED RELEASE TAB PO SCH ×2 (09:49→21:00)
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
--- NOTE | 2017-04-09 17:28 | HHI.PR ---
Subjective Remarks feels good "still hearing voices" telling her to kill herself Objective Vitals Vital Signs Date Time Temp Pulse Resp B/P (MAP) Pulse Ox O2 Delivery O2 Flow Rate FiO2 04/09/17 05:40 98.4 93 16 114/60 (78) 100 04/08/17 17:37 18 18 107/57 (74) 100 Result Diagram: 04/09/17 0759 04/09/17 0759 Objective Remarks awake and alert lungs clear regular rhythma bdomen soft, nontender extremities no edema A/P Assessment and Plan Psychiatric disorder will defer to psychiatry Hypertension adjust medications- continue on Lisinopril- Hold for now with increase creatinine Hypothyroidism resume home medications GERD continue on PPI Anemia continue on Hemocyte Osteoarthritis pain on chronic NSAIDs- DC with NANDINI NANDINI- encourage po fluids. will monitor. if trending up - start IVF. Hold SUSAN Chronic genital herpes continue on acyclovir twice a day Weight loss recommended for her obesity Cocaine abuse cessation recommended Tobacco abuse cessation recommended Alcohol abuse cessation recommended Medical compliance recommended Ariadne Tripathi MD Apr 09, 2017 17:28
[2017-04-09 17:46] VITALS: BP 127/57; PULSE 89; RESP 18; TEMP 97.7; O2SAT 98
[2017-04-09] MEDS ORDERED: QUEtiapine FUMARATE 300 MG TAB PO SCH (21:00)
[2017-04-10 06:08] VITALS: BP 127/74; PULSE 95; RESP 17; TEMP 98.2; O2SAT 97
[2017-04-10] MEDS: LEVOTHYROXINE SODIUM 100 MCG TAB PO SCH (06:14)
[2017-04-10] MEDS: risperiDONE 3 MG TAB PO SCH (08:43)
[2017-04-10] MEDS: GABAPENTIN 300 MG CAP PO SCH (08:43)
[2017-04-10] MEDS: PANTOPRAZOLE SOD 20 MG DELAYED RELEASE TAB PO SCH (08:43)
[2017-04-10] MEDS: FERROUS FUMARATE 325 MG TAB (106 MG ELEMENTAL IRON) PO SCH (08:43)
[2017-04-10] MEDS: buPROPion HCL 150 MG SUSTAINED RELEASE TAB PO SCH (08:44)
[2017-04-10] MEDS: CHOLECALCIFEROL (VIT D3) 1000 UNIT TAB PO SCH (08:44)
[2017-04-10] MEDS: ALLOPURINOL 100 MG TAB PO SCH (08:44)
[2017-04-10] MEDS: ACYCLOVIR 200 MG CAP PO SCH (08:44)
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
[2017-04-10] MEDS ORDERED: LEVO.1 PO (11:30)
[2017-04-10] MEDS ORDERED: BUPR150CR PO (11:30)
[2017-04-10] MEDS ORDERED: NEUR300C PO (11:30)
[2017-04-10] MEDS ORDERED: HEMO324T PO (11:30)
[2017-04-10] MEDS ORDERED: ACYC400T PO (11:30)
[2017-04-10] MEDS ORDERED: ALLO100 PO (11:30)
[2017-04-10] MEDS ORDERED: QUET1TAB10 PO (11:30)
[2017-04-10] MEDS ORDERED: RISP3TAB2 PO (11:30)
[2017-04-10] MEDS ORDERED: CHOL1000 PO (11:30)
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
[2017-04-11] MEDS ORDERED: AMOX500C PO (20:40)
[2017-04-11] MEDS ORDERED: TYLE325T PO (20:40)
== END 2017-04-10 15:11 | disposition home or self-care (01) | DRG 885 ==
LOC: NEPE 23:46 → NEDA 04-04 05:05 → H260 04-04 05:28 → H270 04-04 08:00
PROVIDERS: ADMIT Student in an Organized Health Care Education/Training Program; ATTEND Student in an Organized Health Care Education/Training Program
DX: F25.0 Schizoaffective disorder, bipolar type (principal); N17.9 Acute kidney failure, unspecified; R56.9 Unspecified convulsions; Z91.14 Patient's other noncompliance with medication regimen; R45.851 Suicidal ideations; I10 Essential (primary) hypertension; K21.9 Gastro-esophageal reflux disease without esophagitis; E03.9 Hypothyroidism, unspecified; A60.00 Herpesviral infection of urogenital system, unspecified; F14.129 Cocaine abuse with intoxication, unspecified; F10.10 Alcohol abuse, uncomplicated; E66.9 Obesity, unspecified; Z68.39 Body mass index [BMI] 39.0-39.9, adult; F12.90 Cannabis use, unspecified, uncomplicated; F17.210 Nicotine dependence, cigarettes, uncomplicated; D64.9 Anemia, unspecified; Z79.1 Long term (current) use of non-steroidal anti-inflammatories (NSAID); M19.90 Unspecified osteoarthritis, unspecified site
CPT/HCPCS: 80053; 80061; 80307; 81001; 82306; 82550; 82607; 83036; 83735; 84100; 84439; 84443; 84550; 85025; 86592; 93005; 99285; Q0163

== ENCOUNTER 2017-04-11 16:10 | Emergency (ER) | payer OTHER ==
[~2017-04-11] VITALS: Ht 172.7 cm; Wt 120.0 kg
[~2017-04-11 16:10] MED LIST changes: +ALLO100 PO; +CHOL1000 PO; -HYDR50CA PO; -MELO7.5T27 PO; -NAPR500 PO; -NAPR500T2 PO; -QUET400T PO; -RISP1TAB54 PO; -VIST50CA PO
[2017-04-11 16:18] VITALS: BP 157/58; PULSE 84; RESP 16; TEMP 98.7; O2SAT 98
--- NOTE | 2017-04-11 18:00 | PD ---
HPI Chief Complaint: Headache Time Seen by Provider: 17:45 Travel History International Travel<30 days: No Contact w/Intl Traveler<30days: No Traveled to known affect area: No History of Present Illness HPI 47-year-old female presents to the emergency Department via EMS with complaint of headache 3 days. Gradual onset. Denies history of headaches. She also is complaining of upper tooth pain times one week. EMS told her maybe her headache is related to her tooth pain. Says her headache is pounding and throbbing. Rates the headache 9/10. She has not taken any medications or tried any treatments to alleviate her symptoms. Denies fever, vomiting. Denies focal deficits or weakness. Denies confusion, disorientation, slurred speech, change in mentation. No known aggravating or relieving factors. Does not have established primary care provider. Reports history of seizures, hypertension. Allergies to Haldol and trazodone. Has no other medical complaints. No other modifying factors or associated signs and symptoms. 1800: Nursing I believe the patient is asking for medication to relieve her auditory hallucinations and she is suicidal. 1802: On reevaluation patient states she is suicidal. She has a plan to jump in front of the train that comes by her house. Reports auditory and visual hallucinations. Denies homicidal ideations. Reports history of using cocaine. PFSH Past Medical History Hx Anticoagulant Therapy: No Arthritis: Yes Asthma: No Bipolar Disorder: Yes Anxiety: Yes Depression: Yes Cardiovascular Problems: No Chemotherapy: No Chest Pain: Yes Congestive Heart Failure: No Cerebrovascular Accident: No Diabetes: No Diminished Hearing: No Endocrine: Yes Gastrointestinal Disorders: Yes GERD: No Genitourinary: No Headaches: Yes Hypertension: Yes Immune Disorder: No Musculoskeletal: Yes Neurologic: Yes Psychiatric: Yes Reproductive: Yes (UTERINE FIBROIDS, GENITAL HERPES) Respiratory: No Integumentary: Yes (HERPES) Migraines: Yes Schizophrenia: Yes Seizures: Yes (Pt verbalized that she had a seizure last night ) Sleep Apnea: No Thyroid Disease: Yes (hypothyroid) ?: Not : 6 Para: 4 Miscarriage: 1 : 1 Tubal Ligation: Yes Past Surgical History Section: Yes (X 4) Gynecologic Surgery: Yes (TUBAL LIGATION, C-SECT X 4) Hysterectomy: Yes Other Surgery: Yes (4 C-Sections) Social History Alcohol Use: Yes (sometimes per pt) Tobacco Use: Yes Substance Use: Yes ($80 OF COCAINE & CRACK DAILY pulled from history, pt said she sometimesuses) Allergies-Medications (Allergen,Severity, Reaction): Coded Allergies: trazodone (Unverified Allergy, Severe, Nausea/Vomiting, 04/11/17) haloperidol (Unverified Adverse Reaction, Intermediate, Twitching, 04/11/17 ) Reported Meds & Prescriptions Reported Meds & Active Scripts Active Tylenol (Acetaminophen) 325 Mg Tab 650 Mg PO Q6H PRN Amoxicillin 500 Mg Cap 500 Mg PO BID 5 Days Gnp Vitamin D3 Extra Stre (Cholecalciferol) 1,000 Unit Tab 1,000 Units PO DAILY 30 Days Quetiapine (Quetiapine Fumarate) 300 Mg Tab 300 Mg PO HS 30 Days Synthroid (Levothyroxine Sodium) 100 Mcg Tab 100 Mcg PO DAILY@0600 30 Days Risperidone 3 Mg Tab 3 Mg PO Q12HR 30 Days Wellbutrin SR 12 HR (Bupropion HCl) 150 Mg Tab 150 Mg PO BID 30 Days Neurontin (Gabapentin) 300 Mg Cap 300 Mg PO BID 30 Days Hemocyte (Ferrous Fumarate) 324 Mg Tab 325 Mg PO BIDPC 30 Days Acyclovir 400 Mg Tab 400 Mg PO BID 30 Days Lisinopril 20 Mg Tab 20 Mg PO DAILY 30 Days Protonix (Pantoprazole Sodium) 20 Mg Tab 20 Mg PO BID Proair Hfa 8.5 GM Inh (Albuterol Sulfate) 90 Mcg/Act Aer 2 Puff INH Q4-6H PRN 108 mcg/actuation Review of Systems Except as stated in HPI: all other systems reviewed are Neg Physical Exam Narrative GENERAL: Well-nourished, well-developed patient, in no acute distress; afebrile , nontoxic-appearing SKIN: Warm and dry. HEAD: Atraumatic. Normocephalic. No facial edema, erythema, tenderness on palpation. No lymphadenopathy. No facial droop noted. Tongue midline. Finger to nose test normal. EYES: Pupils equal and round. No scleral icterus. No injection or drainage. ENT: Mucosa pink and moist. No erythema or exudates. No uvular edema. No uvular , palatal, or tonsillar deviation. Airway patent. EARS: Bilateral pinnae and external canals appear within normal limits. Bilateral tympanic membranes without erythema, dullness or perforation. MOUTH: Mucous membranes moist, no lesions, tongue and gums appear normal. Poor dentition throughout. Tooth #12 with tenderness on palpation. Surrounding gingiva is with erythema and edema; without drainage. No obvious abscess noted. NECK: Trachea midline. No lymphadenopathy. CARDIOVASCULAR: Regular rate and rhythm. No murmur appreciated. RESPIRATORY: No accessory muscle use. Clear to auscultation. Breath sounds equal bilaterally. GASTROINTESTINAL: Abdomen soft, non-tender, nondistended. Hepatic and splenic margins not palpable. Bowel sounds are active 4 quadrants. MUSCULOSKELETAL: No obvious deformities. No clubbing. No cyanosis. No edema. NEUROLOGICAL: Awake and alert. Oriented 4. No obvious cranial nerve deficits. Motor grossly within normal limits. Normal speech. No ataxia. No mid -line drift. No upper or lower extremity drift. Moves all extremities. 5/5 strength to all extremities. PSYCHIATRIC: Appropriate mood and affect; insight and judgment normal. Data Data Last Documented VS Vital Signs Date Time Temp Pulse Resp B/P (MAP) Pulse Ox O2 Delivery O2 Flow Rate FiO2 04/12/17 06:19 98.9 93 18 130/79 (96) 98 Room Air Orders Orders Ct Brain W/O Iv Contrast(Rout) (04/11/17 ) Complete Blood Count With Diff (04/11/17 18:00) Comprehensive Metabolic Panel (04/11/17 18:00) Psych Screen (04/11/17 18:00) Drug Screen, Random Urine (04/11/17 18:00) Alcohol (Ethanol) (04/11/17 18:00) Salicylates (Aspirin) (04/11/17 18:00) Tylenol (Acetaminophen) (04/11/17 18:00) Urinalysis - C+S If Indicated (04/11/17 18:00) Ed Urine Pregnancytest Poc (04/11/17 18:00) Amoxicillin (Trimox) (04/11/17 21:00) Acetaminophen (Tylenol) (04/11/17 18:15) Ketorolac Inj (Toradol Inj) (04/11/17 19:00) Quetiapine (Seroquel) (04/12/17 01:00) Diet Regular Basic (04/12/17 Breakfast) Labs Laboratory Tests Test 04/11/17 18:25 White Blood Count 4.6 TH/MM3 Red Blood Count 3.47 MIL/MM3 Hemoglobin 10.2 GM/DL Hematocrit 29.4 % Mean Corpuscular Volume 84.7 FL Mean Corpuscular Hemoglobin 29.5 PG Mean Corpuscular Hemoglobin Concent 34.8 % Red Cell Distribution Width 16.6 % Platelet Count 233 TH/MM3 Mean Platelet Volume 9.4 FL Neutrophils (%) (Auto) 65.2 % Lymphocytes (%) (Auto) 22.3 % Monocytes (%) (Auto) 10.6 % Eosinophils (%) (Auto) 1.3 % Basophils (%) (Auto) 0.6 % Neutrophils # (Auto) 3.0 TH/MM3 Lymphocytes # (Auto) 1.0 TH/MM3 Monocytes # (Auto) 0.5 TH/MM3 Eosinophils # (Auto) 0.1 TH/MM3 Basophils # (Auto) 0.0 TH/MM3 CBC Comment DIFF FINAL Differential Comment Urine Color YELLOW Urine Turbidity CLEAR Urine pH 6.5 Urine Specific [place] 1.018 Urine Protein TRACE mg/dL Urine Glucose (UA) NEG mg/dL Urine Ketones NEG mg/dL Urine Occult Blood LARGE Urine Nitrite NEG Urine Bilirubin NEG Urine Urobilinogen LESS THAN 2.0 MG/DL Urine Leukocyte Esterase NEG Urine RBC 18 /hpf Urine WBC 2 /hpf Urine Squamous Epithelial Cells 3 /hpf Urine Bacteria RARE /hpf Urine Mucus FEW /lpf Microscopic Urinalysis Comment CULT NOT INDICATED Blood Urea Nitrogen 18 MG/DL Creatinine 1.23 MG/DL Random Glucose 112 MG/DL Total Protein 7.4 GM/DL Albumin 3.1 GM/DL Calcium Level 8.6 MG/DL Alkaline Phosphatase 93 U/L Aspartate Amino Transf (AST/SGOT) 24 U/L Alanine Aminotransferase (ALT/SGPT) 29 U/L Total Bilirubin LESS THAN 0.1 MG/DL Sodium Level 137 MEQ/L Potassium Level 4.3 MEQ/L Chloride Level 103 MEQ/L Carbon Dioxide Level 29.3 MEQ/L Anion Gap 5 MEQ/L Estimat Glomerular Filtration Rate 56 ML/MIN Salicylates Level 7.1 MG/DL Urine Opiates Screen NEG Acetaminophen Level LESS THAN 2.0 MCG/ML Urine Barbiturates Screen NEG Urine Amphetamines Screen NEG Urine Benzodiazepines Screen NEG Urine Cocaine Screen POS Urine Cannabinoids Screen NEG Ethyl Alcohol Level LESS THAN 3 MG/DL MDM Medical Decision Making Medical Screen Exam Complete: Yes Emergency Medical Condition: Yes Medical Record Reviewed: Yes Differential Diagnosis Dentalgia, cephalgia, suicidal ideation, malingering Narrative Course 47-year-old female with dentalgia tooth #12, complaint of headache, and suicidal ideation. Neuro exam is unremarkable. No facial edema, erythema. No signs of obvious dental abscess. Amoxicillin started in the ER. Labs, urinalysis, CT head ordered. 1850: CT head with no acute findings. Toradol ordered. 1899: Dr. Veronica assumed patient car at this time See her note for patient final disposition. Diagnosis Primary Impression: Dentalgia Additional Impressions: Headache Qualified Codes: R51 - Headache Medical clearance for psychiatric admission Referrals: Dentist Scripts Acetaminophen (Tylenol) 325 Mg Tab 650 MG PO Q6H Y for PAIN SCALE 1 TO 4, #20 TAB 0 Refills Prov: Viky Veronica DO 04/11/17 Amoxicillin (Amoxicillin) 500 Mg Cap 500 MG PO BID for Infection for 5 Days, #10 CAP 0 Refills Prov: Viky Veronica DO 04/11/17 Condition: Stable Cristy Grant Apr 11, 2017 18:00
[2017-04-11] MEDS ORDERED: ACETAMINOPHEN 325 MG TAB PO ONE (18:15)
--- NOTE | 2017-04-11 18:48 | RADRPT ---
EXAM DATE/TIME: 04/11/2017 18:38 [facility] COMPARISON: CT BRAIN W/O CONTRAST, August 29, 2014, 22:24. INDICATIONS : Cephalgia. RADIATION DOSE: 50.11 CTDIvol (mGy) MEDICAL HISTORY : Seizures. Hypertension. SURGICAL HISTORY : Tubal ligation. Hysterectomy. ENCOUNTER: Initial ACUITY: 1 day PAIN SCALE: 4/10 LOCATION: Left cranial TECHNIQUE: Multiple contiguous axial images were obtained of the head. Using automated exposure control and adj ustment of the mA and/or kV according to patient size, radiation dose was kept as low as reasonably a chievable to obtain optimal diagnostic quality images. DICOM format image data is available electro nically for review and comparison. FINDINGS: CEREBRUM: The ventricles are normal for age. No evidence of midline shift, mass lesion, hemorrhage or acute in farction. No extra-axial fluid collections are seen. POSTERIOR FOSSA: The cerebellum and brainstem are intact. The 4th ventricle is midline. The cerebellopontine angle i s unremarkable. EXTRACRANIAL: The visualized portion of the orbits is intact. SKULL: The calvaria is intact. No evidence of skull fracture. CONCLUSION: No acute disease. Eduardo Baig MD on April 11, 2017 at 18:46 Board Certified Radiologist. This report was verified electronically.
--- NOTE | 2017-04-11 18:59 | PD ---
Physical Exam Narrative I, Dr. Veronica, have reviewed the advance practice practitioner's documentation and am in agreement, met with the patient face to face, made the diagnosis, and the medical decision making was done by me. *My assessment and Findings: Schizophrenia vs. drug use vs. migraine headache vs. sinus headache vs. headache from dental pain 47yo F with schizophrenia here with multiple complaints. Pt said she has auditory hallucinations and thoughts of hurting herself. Also with left tooth pain radiating to her head. No periapical abscess palpated. There is some swelling in left hard palate. Covered with amoxicillin and given acetaminophen and toradol. Will have pt follow up with dentist as outpatient. She is nontoxic appearing with no focal neurologic deficits. Labs reviewed, no leukocytosis. H/H low but at baseline. Creatinine elevated at 1.23 but at baseline. Alcohol negative. Acetaminophen negative. Utox positive for cocaine. UA showed WBC 18. Culture not indicated. CT brain negative. Headache improved after acetaminophen and toradol. Pt is medically clear for psych evaluation. Data Data Last Documented VS Vital Signs Date Time Temp Pulse Resp B/P (MAP) Pulse Ox O2 Delivery O2 Flow Rate FiO2 04/11/17 20:19 20 04/11/17 19:24 98.7 76 120/76 (91) 98 Room Air Orders Orders Ct Brain W/O Iv Contrast(Rout) (04/11/17 ) Complete Blood Count With Diff (04/11/17 18:00) Comprehensive Metabolic Panel (04/11/17 18:00) Psych Screen (04/11/17 18:00) Drug Screen, Random Urine (04/11/17 18:00) Alcohol (Ethanol) (04/11/17 18:00) Salicylates (Aspirin) (04/11/17 18:00) Tylenol (Acetaminophen) (04/11/17 18:00) Urinalysis - C+S If Indicated (04/11/17 18:00) Ed Urine Pregnancytest Poc (04/11/17 18:00) Amoxicillin (Trimox) (04/11/17 21:00) Acetaminophen (Tylenol) (04/11/17 18:15) Ketorolac Inj (Toradol Inj) (04/11/17 19:00) Labs Laboratory Tests Test 04/11/17 18:25 White Blood Count 4.6 TH/MM3 Red Blood Count 3.47 MIL/MM3 Hemoglobin 10.2 GM/DL Hematocrit 29.4 % Mean Corpuscular Volume 84.7 FL Mean Corpuscular Hemoglobin 29.5 PG Mean Corpuscular Hemoglobin Concent 34.8 % Red Cell Distribution Width 16.6 % Platelet Count 233 TH/MM3 Mean Platelet Volume 9.4 FL Neutrophils (%) (Auto) 65.2 % Lymphocytes (%) (Auto) 22.3 % Monocytes (%) (Auto) 10.6 % Eosinophils (%) (Auto) 1.3 % Basophils (%) (Auto) 0.6 % Neutrophils # (Auto) 3.0 TH/MM3 Lymphocytes # (Auto) 1.0 TH/MM3 Monocytes # (Auto) 0.5 TH/MM3 Eosinophils # (Auto) 0.1 TH/MM3 Basophils # (Auto) 0.0 TH/MM3 CBC Comment DIFF FINAL Differential Comment Urine Color YELLOW Urine Turbidity CLEAR Urine pH 6.5 Urine Specific [place] 1.018 Urine Protein TRACE mg/dL Urine Glucose (UA) NEG mg/dL Urine Ketones NEG mg/dL Urine Occult Blood LARGE Urine Nitrite NEG Urine Bilirubin NEG Urine Urobilinogen LESS THAN 2.0 MG/DL Urine Leukocyte Esterase NEG Urine RBC 18 /hpf Urine WBC 2 /hpf Urine Squamous Epithelial Cells 3 /hpf Urine Bacteria RARE /hpf Urine Mucus FEW /lpf Microscopic Urinalysis Comment CULT NOT INDICATED Blood Urea Nitrogen 18 MG/DL Creatinine 1.23 MG/DL Random Glucose 112 MG/DL Total Protein 7.4 GM/DL Albumin 3.1 GM/DL Calcium Level 8.6 MG/DL Alkaline Phosphatase 93 U/L Aspartate Amino Transf (AST/SGOT) 24 U/L Alanine Aminotransferase (ALT/SGPT) 29 U/L Total Bilirubin LESS THAN 0.1 MG/DL Sodium Level 137 MEQ/L Potassium Level 4.3 MEQ/L Chloride Level 103 MEQ/L Carbon Dioxide Level 29.3 MEQ/L Anion Gap 5 MEQ/L Estimat Glomerular Filtration Rate 56 ML/MIN Salicylates Level 7.1 MG/DL Urine Opiates Screen NEG Acetaminophen Level LESS THAN 2.0 MCG/ML Urine Barbiturates Screen NEG Urine Amphetamines Screen NEG Urine Benzodiazepines Screen NEG Urine Cocaine Screen POS Urine Cannabinoids Screen NEG Ethyl Alcohol Level LESS THAN 3 MG/DL MDM Supervised Visit with OSCAR: Yes Diagnosis Primary Impression: Dentalgia Additional Impressions: Medical clearance for psychiatric admission Headache Qualified Codes: R51 - Headache Med/Other Pt SpecificInfo: Prescription(s) given Scripts Acetaminophen (Tylenol) 325 Mg Tab 650 MG PO Q6H Y for PAIN SCALE 1 TO 4, #20 TAB 0 Refills Prov: Viky Veronica DO 04/11/17 Amoxicillin (Amoxicillin) 500 Mg Cap 500 MG PO BID for Infection for 5 Days, #10 CAP 0 Refills Prov: Viky Veronica DO 04/11/17 Condition: Stable Viky Veronica DO Apr 11, 2017 18:59
[2017-04-11] MEDS ORDERED: KETOROLAC TROMETHAMINE 30 MG/ML (IVP) VIAL IV PUSH ONE (19:00)
[2017-04-11 19:07] LABS: BASOPHIL % 0.6 % (0.0-2.0); EOSINOPHIL # 0.1 TH/MM3 (0-0.4); EOSINOPHIL % 1.3 % (0.0-4.0); HEMATOCRIT 29.4 % (35.0-46.0); HEMO FLAGS DIFF FINAL; LYMPH % 22.3 % (9.0-44.0); MEAN CELL VOLUME 84.7 FL (80.0-100.0); MEAN CORPUSCULAR HEMOGLOBIN 29.5 PG (27.0-34.0); MEAN CORPUSCULAR HGB CONC 34.8 % (32.0-36.0); MONO % 10.6 % (0.0-8.0); NEUT % 65.2 % (16.0-70.0); PLATELET COUNT 233 TH/MM3 (150-450); RED BLOOD COUNT 3.47 MIL/MM3 (4.00-5.30); RED CELL DISTRIBUTION WIDTH 16.6 % (11.6-17.2); WHITE BLOOD COUNT 4.6 TH/MM3 (4.0-11.0)
[2017-04-11 19:20] LABS: BACTERIA, URINE RARE /hpf; BLOOD, URINE LARGE (NEG); COMMENT (UR) CULT NOT INDICATED; CULTURE IF INDICATED CULT NOT INDICATED; GLUCOSE,URINE NEG (NEG); KETONE, URINE NEG (NEG); MUCUS URINE FEW /lpf (OCC); NITRITE,URINE NEG (NEG); PH, URINE 6.5 (5.0-8.5); SQUAMOUS EPITHELIAL CELL URINE 3 /hpf (0-5); URINE COLOR YELLOW (YELLW/STRAW)
[2017-04-11] MEDS: AMOXICILLIN (TRIHYDRATE) 500 MG CAP PO SCH (19:21)
[2017-04-11 19:24] VITALS: BP 120/76; PULSE 76; RESP 16; TEMP 98.7; O2SAT 98
[2017-04-11 20:33] LABS: ALT (GPT) 29 U/L (10-53)
[2017-04-11 20:34] LABS: ANION GAP 5 MEQ/L (5-15); AST (GOT) 24 U/L (15-37); BICARBONATE 29.3 MEQ/L (21.0-32.0); BLOOD UREA NITROGEN 18 MG/DL (7-18); CHLORIDE 103 MEQ/L (98-107); GLOMERULAR FILTRATION RATE 56 ML/MIN (>89); POTASSIUM 4.3 MEQ/L (3.5-5.1); SODIUM (NA) 137 MEQ/L (136-145)
[2017-04-11 20:35] LABS: ALCOHOL LESS THAN 3 MG/DL (0-5); ALKALINE PHOSPHATASE 93 U/L (45-117); TOTAL BILIRUBIN ADULT LESS THAN 0.1 MG/DL (0.2-1.0)
[2017-04-11 20:36] LABS: ACETAMINOPHEN LESS THAN 2.0 MCG/ML (10.0-30.0)
[2017-04-11] MEDS ORDERED: AMOX500C PO (20:40)
[2017-04-11] MEDS ORDERED: TYLE325T PO (20:40)
[2017-04-11 21:42] VITALS: BP 132/72; PULSE 72; RESP 18; TEMP 98; O2SAT 97
[2017-04-12] MEDS ORDERED: QUEtiapine FUMARATE 300 MG TAB PO ONE (01:00)
[2017-04-12 02:00] VITALS: BP 136/71; PULSE 81; RESP 17; TEMP 97; O2SAT 97
[2017-04-12 06:19] VITALS: BP 130/79; PULSE 93; RESP 18; TEMP 98.9; O2SAT 98
[2017-04-12 10:21] VITALS: BP 147/64; PULSE 93; RESP 18; O2SAT 96
[2017-04-12] MEDS: AMOXICILLIN (TRIHYDRATE) 500 MG CAP PO SCH ×2 (14:31→20:54)
[2017-04-12 14:50] VITALS: BP 127/56; PULSE 83; RESP 18
[2017-04-12] MEDS: risperiDONE 3 MG TAB PO SCH ×2 (17:31→20:00)
[2017-04-12 18:00] VITALS: BP 142/80; PULSE 77; RESP 18
[2017-04-12] MEDS ORDERED: QUEtiapine FUMARATE 200 MG TAB PO SCH (21:00)
[2017-04-12 22:00] VITALS: BP 117/58; PULSE 83; RESP 17; TEMP 97.5; O2SAT 99
[2017-04-13 03:16] VITALS: BP 124/66; PULSE 77; RESP 18
[2017-04-13 06:00] VITALS: BP 153/73; PULSE 86; RESP 16; TEMP 98; O2SAT 98
[2017-04-13] MEDS: AMOXICILLIN (TRIHYDRATE) 500 MG CAP PO SCH (09:22)
[2017-04-13] MEDS ORDERED: ACETAMINOPHEN 325 MG TAB PO ONE (13:30)
[2017-04-13] MEDS ORDERED: ALUMINUM/MAGNESIUM/SIMETH 30 ML CUP PO ONE (14:00)
[2017-04-13] MEDS ORDERED: PANTOPRAZOLE SOD 40 MG DELAYED RELEASE TAB PO ONE (14:00)
[2017-04-13 14:05] VITALS: BP 160/91; PULSE 85; RESP 18
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
== END 2017-04-13 15:00 | disposition home or self-care (01) ==
LOC: NEPD 16:10 → NEPJ 04-13 15:00
DX: K08.89 Other specified disorders of teeth and supporting structures (principal); R51 Headache; F31.9 Bipolar disorder, unspecified; I10 Essential (primary) hypertension; F20.9 Schizophrenia, unspecified; R56.9 Unspecified convulsions; E03.9 Hypothyroidism, unspecified; F14.90 Cocaine use, unspecified, uncomplicated; Z72.0 Tobacco use
CPT/HCPCS: 70450; 80053; 80307; 81001; 84703; 85025; 96374; 99285; J1885